=== PATIENT | male | born 1970 | race Caucasian/White ===

== ENCOUNTER 2020-01-05 16:18 | Inpatient (IN) | payer OTHER ==
[~2020-01-05] VITALS: Ht 182.9 cm; Wt 129.6 kg
[2020-01-05] MEDS ORDERED: normal saline 1000ML IV soln IV ONE (17:20)
[2020-01-05] MEDS ORDERED: acetaminophen 325mg tablet PO STA (17:20)
[2020-01-05] MEDS ORDERED: dexamethasone sod phosphate 10mg/ml inj IV STA (18:01)
[2020-01-05] MEDS ORDERED: ketorolac trometh. 30mg/ml inj. IV ONE (18:05)
[2020-01-05 18:12] LABS: BASOPHILS % (AUTO) 0.2 % (0-1); EOSINOPHILS % (AUTO) 0 % (0-6); HEMATOCRIT 41.7 % (42.0-52.0); HEMOGLOBIN 14.6 g/dl (14.0-17.9); LYMPHOCYTES # (AUTO) 0.5 X10'3 (1.1-4.8); LYMPHOCYTES % (AUTO) 8.7 % (21-51); MEAN CORPUSCULAR HEMOGLOBIN 30.9 PG (27.0-31.0); MEAN CORPUSCULAR VOLUME 88.3 FL (78-98); MEAN PLATELET VOLUME 7.4 FL (7.4-10.4); MONOCYTES # (AUTO) 0.2 X10'3 (0-0.9); MONOCYTES % (AUTO) 3.2 % (2-12); NEUTROPHILS # (AUTO) 4.7 X10'3 (1.8-7.7); NEUTROPHILS % (AUTO) 87.9 % (42-75); PLATELET COUNT 193 X10'3 (140-440); RED BLOOD COUNT 4.73 X10'6 (4.70-6.10); RED CELL DISTRIBUTION WIDTH 13.4 % (11.5-14.5); WHITE BLOOD COUNT 5.4 X10'3 (4.5-11.0)
[2020-01-05 18:26] LABS: ALANINE AMINOTRANSFERASE 41 U/L (12-78); ALBUMIN 3.2 G/DL (3.4-5.0); ALBUMIN/GLOBULIN RATIO 0.7 (1.1-1.5); ALKALINE PHOSPHATASE 69 IU/L (46-116); ANION GAP 11 (8-16); ASPARTATE AMINO TRANSFERASE 54 U/L (10-37); BILIRUBIN,TOTAL 0.4 MG/DL (0.1-1.0); BLOOD UREA NITROGEN 17 MG/DL (7-18); BUN/CREATININE RATIO 14.9 (5.4-32.0); CALCIUM 8.5 MG/DL (8.5-10.1); CHLORIDE 90 MMOL/L (99-107); CREATININE 1.14 MG/DL (0.60-1.10); GLUCOSE 114 MG/DL (70-104); POTASSIUM 3.7 MMOL/L (3.5-5.1); SODIUM 128 MMOL/L (135-145); TOTAL CARBON DIOXIDE 27.1 MMOL/L (24-32); eGFR 67 ML/MIN
[2020-01-05 18:50] LABS: CLARITY,URINE SLIGHTLY CLOUDY (Clear); COLOR,URINE YELLOW (Yellow); GLUCOSE, URINE NEGATIVE (Neg); KETONES,URINE NEGATIVE (Neg); LEUKOCYTE ESTERASE ,URINE NEGATIVE (Neg); NITRITES, URINE NEGATIVE (Neg); OCCULT BLOOD,URINE SMALL (Neg); PROTEIN,URINE >=300 mg/dl (Neg); UROBILINOGEN,URINE 0.2 E.U/dL (0.2-1.0)
[2020-01-05 18:52] LABS: UA COLLECTION TYPE CLN CATCH MIDSTREAM
[2020-01-05 18:57] LABS: HYALINE CASTS 0-3 /LPF (NEGATIVE); MUCUS STRANDS FEW /LPF (Neg); SQUAMOUS EPITHELIAL CELL,UR FEW /LPF (FEW)
[2020-01-05 18:58] LABS: BACTERIA,URINE NONE SEEN /HPF (Neg); RBC,URINE 0-2 /HPF (0-2); WBC,URINE 0-4 /HPF (0-4)
[2020-01-05 19:03] LABS: C-REACTIVE PROTEIN 8.98 MG/DL (0.0-0.5); LACTATE DEHYDROGENASE 451 U/L (85-227); MAGNESIUM 1.9 MG/DL (1.5-2.4)
[2020-01-05 19:11] LABS: FERRITIN 9571 NG/ML (26-388)
[2020-01-05 19:13] LABS: D-DIMER 3.09 MG/L FEU (0-0.50)
[2020-01-05] MEDS ORDERED: iohexol 350MG/ML 100ml bottle IV ONE (19:24)
[2020-01-05] MEDS ORDERED: ondansetron/PF 4mg/2ml inj IV PRN (21:35)
[2020-01-05] MEDS ORDERED: potassium Cl 20 mEq SR tablet PO PRN ×2 (21:35)
[2020-01-05] MEDS ORDERED: mag hydrox/Alum hydrox/simeth 30ml oral suspension PO PRN (21:35)
[2020-01-05] MEDS ORDERED: potassium CL 10mEq/100ml bag 100 ML IV PRN ×2 (21:35)
[2020-01-05] MEDS: normal saline 1000ml 1,000 ML IV SCH (21:35)
[2020-01-05] MEDS ORDERED: magnesium hydroxide 30ml (MOM) UD suspension PO PRN (21:35)
[2020-01-05 22:39] VITALS: BP 138/73
[2020-01-05] MEDS ORDERED: LISI-600 PO (22:56)
[2020-01-05] MEDS ORDERED: OMEP40CA13 PO (22:58)
[2020-01-05] MEDS ORDERED: VITA-268 PO (22:59)
[2020-01-05] MEDS ORDERED: OMEG-79 PO (22:59)
--- NOTE | 2020-01-05 23:00 | NUR ---
Dr. Galdamez called Addendum: 01/06/20 at 0255 by Renetta Cintron RN Strike from medical record, incorrect patient.
--- NOTE | 2020-01-05 23:05 | NUR ---
Order to DC FC and previous note entered on incorrect patient. Strike from Record.
[2020-01-05] MEDS ORDERED: MULT-1085 PO (23:08)
[2020-01-05] MEDS ORDERED: ASCO-139 PO (23:08)
[2020-01-06 06:09] LABS: BASOPHILS % (AUTO) 0.1 % (0-1); EOSINOPHILS % (AUTO) 0 % (0-6); HEMATOCRIT 39.4 % (42.0-52.0); HEMOGLOBIN 13.3 g/dl (14.0-17.9); LYMPHOCYTES # (AUTO) 0.3 X10'3 (1.1-4.8); LYMPHOCYTES % (AUTO) 10.5 % (21-51); MEAN CORPUSCULAR HGB CONC 33.9 g/dL (33.0-36.5); MEAN CORPUSCULAR VOLUME 88.4 FL (78-98); MEAN PLATELET VOLUME 7.6 FL (7.4-10.4); MONOCYTES # (AUTO) 0.1 X10'3 (0-0.9); MONOCYTES % (AUTO) 4.5 % (2-12); NEUTROPHILS # (AUTO) 2.8 X10'3 (1.8-7.7); NEUTROPHILS % (AUTO) 84.9 % (42-75); PLATELET COUNT 190 X10'3 (140-440); RED BLOOD COUNT 4.45 X10'6 (4.70-6.10); RED CELL DISTRIBUTION WIDTH 13.5 % (11.5-14.5); WHITE BLOOD COUNT 3.3 X10'3 (4.5-11.0)
--- NOTE | 2020-01-06 06:28 | NUR ---
Problems reprioritized. Patient report given, questions answered & plan of care reviewed with SUYAPA Lindsey.
[2020-01-06 06:30] LABS: ALANINE AMINOTRANSFERASE 39 U/L (12-78); ALBUMIN 2.9 G/DL (3.4-5.0); ALBUMIN/GLOBULIN RATIO 0.6 (1.1-1.5); ALKALINE PHOSPHATASE 61 IU/L (46-116); ANION GAP 10 (8-16); ASPARTATE AMINO TRANSFERASE 50 U/L (10-37); BILIRUBIN,TOTAL 0.3 MG/DL (0.1-1.0); BLOOD UREA NITROGEN 20 MG/DL (7-18); BUN/CREATININE RATIO 20.8 (5.4-32.0); CALCIUM 8.6 MG/DL (8.5-10.1); CHLORIDE 99 MMOL/L (99-107); CREATININE 0.96 MG/DL (0.60-1.10); GLUCOSE 129 MG/DL (70-104); POTASSIUM 4.3 MMOL/L (3.5-5.1); SODIUM 135 MMOL/L (135-145); TOTAL PROTEIN 7.6 G/DL (6.4-8.2); eGFR 82 ML/MIN
[2020-01-06] MEDS: dexamethasone inj 6 MG in normal saline 100ml IV soln 100 ML IV SCH ×2 (07:42→20:12)
[2020-01-06] MEDS: multivitamins, therapeutics tablet PO SCH (07:43)
[2020-01-06] MEDS: ascorbic acid 500mg tablet PO SCH (07:43)
[2020-01-06] MEDS: pantoprazole 40mg Tablet.DR PO SCH (07:43)
[2020-01-06] MEDS: vitamin B comp w/Vit. C tab 1 TAB TABLET PO SCH (07:43)
[2020-01-06] MEDS: enoxaparin 40mg/0.4ml syringe SUBCUT SCH ×2 (07:44→20:13)
[2020-01-06] MEDS: OMEGA-3/DHA/EPA/FISH OIL 1 EACH CAPSULE.DR PO SCH (07:44)
[2020-01-06] MEDS ORDERED: lisinopril 20mg tablet PO SCH (08:00)
[2020-01-06] MEDS: K and/or MAG REPLACEMENT MC SCH ×2 (08:00→20:00)
[2020-01-06 08:10] VITALS: BP 134/85
[2020-01-06] MEDS ORDERED: LISI1TAB32 PO (08:48)
[2020-01-06] MEDS ORDERED: FLU VACC QS2020-21(6MOS UP)/PF 60 MCG/0.5 ML SYRINGE IMVAC ONE (10:00)
[2020-01-06] MEDS: normal saline 1000ml 1,000 ML IV SCH ×3 (12:39→22:04)
[2020-01-06 12:45] VITALS: BP 139/88
--- NOTE | 2020-01-06 15:09 | NUR ---
PAGER ID: [phone] MESSAGE: [phone] Richard Can we get RT and Treat on this patient please, sats are decreasing. Rosalia [id number]
--- NOTE | 2020-01-06 15:10 | NUR ---
Found patient up at sink without oxygen, sat 65%. Assist to bed, nasal canula on with O2 up to 8L. Sat up to 86%. Stayed with patient, instructing him to breath in his nose and out his mouth. Eventually sat at 90% at 4L NC. Call to Dr Salazar, she is coming to see patient.
[2020-01-06 15:15] VITALS: BP 142/73
[2020-01-06 15:20] VITALS: BP 136/78
[2020-01-06] MEDS ORDERED: furosemide 40mg/4ml inj IV ONE (15:40)
[2020-01-06 18:00] VITALS: BP 137/91
--- NOTE | 2020-01-06 18:24 | NUR ---
PAGER ID: [phone] MESSAGE: [phone] COVID patient is now sat 77% currently. Rosalia [id number]
--- NOTE | 2020-01-06 18:37 | NUR ---
Paged Dr Salazar, Called Dr Salazar cell phone-no answer
--- NOTE | 2020-01-06 18:45 | NUR ---
Dr Salazar called, new orders
--- NOTE | 2020-01-06 18:48 | NUR ---
Report to noc RN
--- NOTE | 2020-01-06 21:37 | NUR ---
Patient in room YARIEL 353. I have received report from Azra by telephone from Surgical and had the opportunity to ask questions.
[2020-01-06 22:00] VITALS: BP 148/94
--- NOTE | 2020-01-06 22:51 | NUR ---
Patient in room YARIEL 353. I have received report from Gretel DALE and had the opportunity to ask questions and assume patient care.
--- NOTE | 2020-01-06 22:52 | NUR ---
Problems reprioritized. Patient report given, questions answered & plan of care reviewed with Mary DALE. Patient transfered to PCU. Pt in no apparent distress. All belongings sent with pt.
[2020-01-06] MEDS: HYDROcodone/acetaminophen 5mg/325mg tablet PO PRN (23:21)
[2020-01-07] VITALS (9 sets, daily range): BP systolic 120–164; BP diastolic 71–94
[2020-01-07] MEDS ORDERED: diltiazem 5mg/ml 5ml inj. IV ONE (06:15)
--- NOTE | 2020-01-07 06:15 | NUR ---
Cardiac Rhythm changed to A fib with RVR MD Farr called and got orders for Cardizem 10 mg IV Push for loading dose and to start Cardizem Drip at 5 ml/hr. Was able to administer medications before giving report to AM shift. Will continue to monitor.
[2020-01-07 06:27] LABS: BASOPHILS % (AUTO) 0.1 % (0-1); EOSINOPHILS % (AUTO) 0 % (0-6); HEMATOCRIT 40.6 % (42.0-52.0); HEMOGLOBIN 13.7 g/dl (14.0-17.9); LYMPHOCYTES # (AUTO) 0.4 X10'3 (1.1-4.8); LYMPHOCYTES % (AUTO) 4.4 % (21-51); MEAN CORPUSCULAR HEMOGLOBIN 30.1 PG (27.0-31.0); MEAN CORPUSCULAR HGB CONC 33.8 g/dL (33.0-36.5); MEAN PLATELET VOLUME 7.5 FL (7.4-10.4); MONOCYTES # (AUTO) 0.2 X10'3 (0-0.9); NEUTROPHILS # (AUTO) 7.5 X10'3 (1.8-7.7); NEUTROPHILS % (AUTO) 92.5 % (42-75); PLATELET COUNT 240 X10'3 (140-440); RED BLOOD COUNT 4.56 X10'6 (4.70-6.10); RED CELL DISTRIBUTION WIDTH 13.7 % (11.5-14.5); WHITE BLOOD COUNT 8.1 X10'3 (4.5-11.0)
--- NOTE | 2020-01-07 06:30 | NUR ---
Orientee documentation: I have reviewed and agree with all interventions, assessments performed, and Medications administered documented by Jie DALE.
[2020-01-07] MEDS: diltiazem-D5W 125mg/125ml 125 ML IV SCH (06:34)
[2020-01-07 06:46] LABS: ALANINE AMINOTRANSFERASE 53 U/L (12-78); ALBUMIN 2.8 G/DL (3.4-5.0); ALBUMIN/GLOBULIN RATIO 0.6 (1.1-1.5); ALKALINE PHOSPHATASE 64 IU/L (46-116); ANION GAP 6 (8-16); ASPARTATE AMINO TRANSFERASE 63 U/L (10-37); BILIRUBIN,TOTAL 0.3 MG/DL (0.1-1.0); BLOOD UREA NITROGEN 23 MG/DL (7-18); BUN/CREATININE RATIO 21.7 (5.4-32.0); C-REACTIVE PROTEIN 5.54 MG/DL (0.0-0.5); CALCIUM 9.4 MG/DL (8.5-10.1); CHLORIDE 103 MMOL/L (99-107); CREATININE 1.06 MG/DL (0.60-1.10); POTASSIUM 4.4 MMOL/L (3.5-5.1); SODIUM 138 MMOL/L (135-145); TOTAL CARBON DIOXIDE 29.5 MMOL/L (24-32); TOTAL PROTEIN 7.4 G/DL (6.4-8.2); eGFR 73 ML/MIN
[2020-01-07 06:47] LABS: GLUCOSE 123 MG/DL (70-104)
[2020-01-07 06:49] LABS: D-DIMER 3.05 MG/L FEU (0-0.50)
--- NOTE | 2020-01-07 06:54 | NUR ---
RECEIVED REPORT FROM JOEL DALE, [facility].
--- NOTE | 2020-01-07 06:56 | NUR ---
Problems reprioritized. Patient report given, questions answered & plan of care reviewed with Maryanne DALE.
[2020-01-07] MEDS: dexamethasone inj 6 MG in normal saline 100ml IV soln 100 ML IV SCH ×2 (07:30→20:31)
[2020-01-07] MEDS: vitamin B comp w/Vit. C tab 1 TAB TABLET PO SCH (07:30)
[2020-01-07] MEDS: ascorbic acid 500mg tablet PO SCH (07:30)
[2020-01-07] MEDS: OMEGA-3/DHA/EPA/FISH OIL 1 EACH CAPSULE.DR PO SCH (07:30)
[2020-01-07] MEDS: lisinopril 5mg tablet PO SCH (07:30)
[2020-01-07] MEDS: pantoprazole 40mg Tablet.DR PO SCH (07:30)
[2020-01-07] MEDS: multivitamins, therapeutics tablet PO SCH (07:30)
[2020-01-07] MEDS: enoxaparin 40mg/0.4ml syringe SUBCUT SCH ×2 (07:30→07:58)
--- NOTE | 2020-01-07 07:45 | NUR ---
Placed patient on NRB 15 L at this time, tolerating well, saturation 91-94%. Will cont. to monitor. Patient states will call if he feels SOB. Able to make needs known.
[2020-01-07] MEDS: acetaminophen 325mg tablet PO PRN ×2 (07:50→17:15)
[2020-01-07] MEDS: K and/or MAG REPLACEMENT MC SCH ×2 (07:55→20:00)
[2020-01-07] MEDS ORDERED: HYDROchlorothiazide 12.5mg capsule PO SCH (08:00)
--- NOTE | 2020-01-07 10:21 | NUR ---
Paged hosp, "Maryanne [phone] Edson Ramos send out test results POSITIVE."
[2020-01-07] MEDS ORDERED: REMDESIVIR 100MG inj. 200 MG in normal saline 100ml IV soln 100 ML IV ONE (12:10)
--- NOTE | 2020-01-07 18:00 | NUR ---
Patient in room PCU 3008. I have received report from Maryanne DALE and had the opportunity to ask questions and assume patient care.
--- NOTE | 2020-01-07 18:13 | NUR ---
Gave report to Ekaterina DALE, transferred care.
[2020-01-07] MEDS: enoxaparin 60mg/0.6ml syringe SUBCUT SCH (20:31)
[2020-01-08] VITALS (11 sets, daily range): BP systolic 126–161; BP diastolic 73–106
[2020-01-08] MEDS: LORazepam 2 mg/ml vial IV PRN ×2 (01:41→14:44)
[2020-01-08] MEDS: diltiazem-D5W 125mg/125ml 125 ML IV SCH ×2 (04:42→09:55)
--- NOTE | 2020-01-08 06:13 | NUR ---
Problems reprioritized. Patient report given, questions answered & plan of care reviewed with yKleigh DALE.
--- NOTE | 2020-01-08 06:30 | NUR ---
Patient in room PCU 3008. I have received report from SUYAPA Flores and had the opportunity to ask questions and assume patient care. Patient awake in bed and in no acute distress.
[2020-01-08 07:42] LABS: BASOPHILS % (AUTO) 0.1 % (0-1); EOSINOPHILS % (AUTO) 0 % (0-6); HEMATOCRIT 44.6 % (42.0-52.0); HEMOGLOBIN 14.9 g/dl (14.0-17.9); LYMPHOCYTES # (AUTO) 0.4 X10'3 (1.1-4.8); LYMPHOCYTES % (AUTO) 3.4 % (21-51); MEAN CORPUSCULAR HEMOGLOBIN 29.7 PG (27.0-31.0); MEAN CORPUSCULAR HGB CONC 33.5 g/dL (33.0-36.5); MEAN CORPUSCULAR VOLUME 88.9 FL (78-98); MEAN PLATELET VOLUME 7.4 FL (7.4-10.4); MONOCYTES # (AUTO) 0.3 X10'3 (0-0.9); MONOCYTES % (AUTO) 2.6 % (2-12); NEUTROPHILS # (AUTO) 10.9 X10'3 (1.8-7.7); NEUTROPHILS % (AUTO) 93.9 % (42-75); PLATELET COUNT 320 X10'3 (140-440); RED BLOOD COUNT 5.02 X10'6 (4.70-6.10); WHITE BLOOD COUNT 11.7 X10'3 (4.5-11.0)
[2020-01-08] MEDS: dexamethasone inj 6 MG in normal saline 100ml IV soln 100 ML IV SCH (07:48)
[2020-01-08] MEDS: enoxaparin 60mg/0.6ml syringe SUBCUT SCH (07:49)
[2020-01-08] MEDS: vitamin B comp w/Vit. C tab 1 TAB TABLET PO SCH (07:49)
[2020-01-08] MEDS: OMEGA-3/DHA/EPA/FISH OIL 1 EACH CAPSULE.DR PO SCH (07:49)
[2020-01-08] MEDS: pantoprazole 40mg Tablet.DR PO SCH (07:50)
[2020-01-08] MEDS: ascorbic acid 500mg tablet PO SCH (07:50)
[2020-01-08] MEDS: multivitamins, therapeutics tablet PO SCH (07:50)
[2020-01-08] MEDS: lisinopril 5mg tablet PO SCH (07:51)
[2020-01-08] MEDS: K and/or MAG REPLACEMENT MC SCH ×2 (08:00→20:00)
[2020-01-08 08:02] LABS: D-DIMER 4.53 MG/L FEU (0-0.50)
[2020-01-08 08:04] LABS: ALANINE AMINOTRANSFERASE 49 U/L (12-78); ALBUMIN 2.6 G/DL (3.4-5.0); ALBUMIN/GLOBULIN RATIO 0.5 (1.1-1.5); ALKALINE PHOSPHATASE 98 IU/L (46-116); ANION GAP 9 (8-16); ASPARTATE AMINO TRANSFERASE 55 U/L (10-37); BILIRUBIN,TOTAL 0.6 MG/DL (0.1-1.0); BLOOD UREA NITROGEN 20 MG/DL (7-18); BUN/CREATININE RATIO 21.5 (5.4-32.0); C-REACTIVE PROTEIN 13.07 MG/DL (0.0-0.5); CALCIUM 8.6 MG/DL (8.5-10.1); CHLORIDE 101 MMOL/L (99-107); CREATININE 0.93 MG/DL (0.60-1.10); POTASSIUM 4.3 MMOL/L (3.5-5.1); SODIUM 136 MMOL/L (135-145); TOTAL CARBON DIOXIDE 26.2 MMOL/L (24-32); TOTAL PROTEIN 7.6 G/DL (6.4-8.2); eGFR 85 ML/MIN
[2020-01-08 08:08] LABS: GLUCOSE 117 MG/DL (70-104)
[2020-01-08] MEDS ORDERED: enoxaparin 100mg/ml syringe SUBCUT ONE (09:40)
[2020-01-08] MEDS: REMDESIVIR 100MG inj. 100 MG in normal saline 100ml IV soln 100 ML IV SCH (09:54)
[2020-01-08] MEDS ORDERED: enoxaparin 40mg/0.4ml syringe SQ ONE (10:00)
[2020-01-08] MEDS ORDERED: enoxaparin 30mg/0.3ml syringe SUBCUT ONE (10:00)
--- NOTE | 2020-01-08 11:29 | NUR ---
RT AT PATIENTS BEDSIDE. ATTEMPTED TO PUT PATIENT ON HI FLOW SALTER AT 15L AND A 15L NRB, PATIENTS SPO2 REMAINED IN THE 80'S. PATIENT STATED THAT HIS WOB INCREASED AND FELT MORE COMFORTABLE ON BIPAP. PATIENTS BIPAP PRESSURES WERE INCREASED 15/8 ON 85%. PT RESTING COMFORTABLY ON BIPAP, RT WILL CONTINUE TO MONITOR. Addendum: 01/08/20 at 1136 by Renetta Garcia RT Amended: Links added.
[2020-01-08] MEDS: methylPREDNISolone sod succ 125mg/2ml vial IV SCH (16:16)
--- NOTE | 2020-01-08 18:09 | NUR ---
Problems reprioritized. Patient report given, questions answered & plan of care reviewed with SUYAPA Carmona. Patient stable at transfer of care. Patient stable at transfer of care.
--- NOTE | 2020-01-08 18:29 | NUR ---
Problems reprioritized. Patient report given, questions answered & plan of care reviewed with SUYAPA Flores. Patient stable at transfer of care.
[2020-01-08] MEDS: enoxaparin 100mg/ml syringe SUBCUT SCH (20:00)
[2020-01-08] MEDS ORDERED: enoxaparin 60mg/0.6ml syringe SUBCUT SCH (20:00)
[2020-01-08] MEDS: enoxaparin 30mg/0.3ml syringe SUBCUT SCH (20:00)
--- NOTE | 2020-01-08 22:23 | NUR ---
Patient in room PCU 3008. I have received report from Kyleigh DALE and had the opportunity to ask questions and assume patient care.
[2020-01-09] VITALS (11 sets, daily range): BP systolic 120–176; BP diastolic 71–102
[2020-01-09] MEDS: methylPREDNISolone sod succ 125mg/2ml vial IV SCH ×4 (00:42→23:45)
[2020-01-09 05:28] LABS: ALANINE AMINOTRANSFERASE 42 U/L (12-78); ALBUMIN 2.3 G/DL (3.4-5.0); ALBUMIN/GLOBULIN RATIO 0.5 (1.1-1.5); ALKALINE PHOSPHATASE 102 IU/L (46-116); ANION GAP 8 (8-16); ASPARTATE AMINO TRANSFERASE 39 U/L (10-37); BILIRUBIN,TOTAL 0.4 MG/DL (0.1-1.0); BLOOD UREA NITROGEN 25 MG/DL (7-18); C-REACTIVE PROTEIN 9.71 MG/DL (0.0-0.5); CALCIUM 8.5 MG/DL (8.5-10.1); CHLORIDE 102 MMOL/L (99-107); CREATININE 0.96 MG/DL (0.60-1.10); GLUCOSE 142 MG/DL (70-104); POTASSIUM 4.8 MMOL/L (3.5-5.1); SODIUM 137 MMOL/L (135-145); TOTAL PROTEIN 7.1 G/DL (6.4-8.2); eGFR 82 ML/MIN
--- NOTE | 2020-01-09 06:07 | NUR ---
Problems reprioritized. Patient report given, questions answered & plan of care reviewed with Kyleigh DALE.
[2020-01-09 07:00] LABS: BASOPHILS % (AUTO) 0.4 % (0-1); EOSINOPHILS % (AUTO) 0 % (0-6); HEMATOCRIT 42.8 % (42.0-52.0); HEMOGLOBIN 14.6 g/dl (14.0-17.9); LYMPHOCYTES # (AUTO) 0.4 X10'3 (1.1-4.8); LYMPHOCYTES % (AUTO) 4.7 % (21-51); MEAN CORPUSCULAR HEMOGLOBIN 30.4 PG (27.0-31.0); MEAN CORPUSCULAR HGB CONC 34.2 g/dL (33.0-36.5); MEAN PLATELET VOLUME 7.1 FL (7.4-10.4); MONOCYTES # (AUTO) 0.3 X10'3 (0-0.9); MONOCYTES % (AUTO) 3.4 % (2-12); NEUTROPHILS # (AUTO) 7.7 X10'3 (1.8-7.7); NEUTROPHILS % (AUTO) 91.5 % (42-75); PLATELET COUNT 322 X10'3 (140-440); RED BLOOD COUNT 4.81 X10'6 (4.70-6.10); RED CELL DISTRIBUTION WIDTH 13.9 % (11.5-14.5); WHITE BLOOD COUNT 8.4 X10'3 (4.5-11.0)
[2020-01-09] MEDS: enoxaparin 30mg/0.3ml syringe SUBCUT SCH ×2 (07:55→19:29)
[2020-01-09] MEDS: enoxaparin 100mg/ml syringe SUBCUT SCH ×2 (07:55→19:28)
[2020-01-09] MEDS: multivitamins, therapeutics tablet PO SCH (07:56)
[2020-01-09] MEDS: OMEGA-3/DHA/EPA/FISH OIL 1 EACH CAPSULE.DR PO SCH (07:56)
[2020-01-09] MEDS: ascorbic acid 500mg tablet PO SCH (07:56)
[2020-01-09] MEDS: lisinopril 5mg tablet PO SCH (07:57)
[2020-01-09] MEDS: pantoprazole 40mg Tablet.DR PO SCH (07:57)
[2020-01-09] MEDS: K and/or MAG REPLACEMENT MC SCH ×2 (07:57→20:00)
[2020-01-09] MEDS: vitamin B comp w/Vit. C tab 1 TAB TABLET PO SCH (07:57)
[2020-01-09] MEDS: diltiazem-D5W 125mg/125ml 125 ML IV SCH (09:45)
[2020-01-09] MEDS: REMDESIVIR 100MG inj. 100 MG in normal saline 100ml IV soln 100 ML IV SCH (09:45)
[2020-01-09] MEDS ORDERED: OMEP-50 PO (10:17)
[2020-01-09] MEDS: LORazepam 2 mg/ml vial IV PRN (11:37)
--- NOTE | 2020-01-09 11:58 | NUR ---
Patient was feeling a little anxious so ativan was given. Patient's bipap's FiO2 now down to 75%.
--- NOTE | 2020-01-09 16:39 | NUR ---
Stopped patient's cardizem gtt per Dr. Kelly order. Patient will be starting PO cardizem tonight.
--- NOTE | 2020-01-09 16:56 | NUR ---
Patient's fiance brought in hearing aid batteries for patient. Now with patient's other belongings.
--- NOTE | 2020-01-09 18:13 | NUR ---
Problems reprioritized. Patient report given, questions answered & plan of care reviewed with SUYAPA Carmona. Patient stable at transfer of care.
--- NOTE | 2020-01-09 18:15 | NUR ---
Patient in room PCU 3008. I have received report from Kylegih DALE and had the opportunity to ask questions and assume patient care.
[2020-01-09] MEDS: diltiazem 30mg tablet PO SCH (19:29)
--- NOTE | 2020-01-09 21:00 | NUR ---
pt's current BP elevated to 176/102. 60mg cardizem PO was given @ 193. aware and gave new order of 60mg cardizem PO ONCE now. medication given and will reevaluate patient @ 2199.
[2020-01-09] MEDS ORDERED: diltiazem 30mg tablet PO ONE (21:15)
[2020-01-10] VITALS (10 sets, daily range): BP systolic 0–146; BP diastolic 56–101
[2020-01-10] MEDS: diltiazem 30mg tablet PO SCH ×4 (02:03→20:50)
[2020-01-10] MEDS: LORazepam 2 mg/ml vial IV PRN ×2 (02:29→20:59)
[2020-01-10 05:35] LABS: BASOPHILS % (AUTO) 0.1 % (0-1); EOSINOPHILS % (AUTO) 0 % (0-6); HEMATOCRIT 42.2 % (42.0-52.0); HEMOGLOBIN 14.2 g/dl (14.0-17.9); LYMPHOCYTES # (AUTO) 0.5 X10'3 (1.1-4.8); LYMPHOCYTES % (AUTO) 4.3 % (21-51); MEAN CORPUSCULAR HEMOGLOBIN 29.7 PG (27.0-31.0); MEAN CORPUSCULAR HGB CONC 33.7 g/dL (33.0-36.5); MEAN CORPUSCULAR VOLUME 88.4 FL (78-98); MEAN PLATELET VOLUME 7.4 FL (7.4-10.4); MONOCYTES # (AUTO) 0.5 X10'3 (0-0.9); MONOCYTES % (AUTO) 4.8 % (2-12); NEUTROPHILS # (AUTO) 9.6 X10'3 (1.8-7.7); NEUTROPHILS % (AUTO) 90.8 % (42-75); PLATELET COUNT 357 X10'3 (140-440); RED BLOOD COUNT 4.78 X10'6 (4.70-6.10); WHITE BLOOD COUNT 10.6 X10'3 (4.5-11.0)
[2020-01-10 05:41] LABS: D-DIMER 2.75 MG/L FEU (0-0.50)
[2020-01-10 05:49] LABS: ALANINE AMINOTRANSFERASE 40 U/L (12-78); ALBUMIN 2.2 G/DL (3.4-5.0); ALBUMIN/GLOBULIN RATIO 0.5 (1.1-1.5); ANION GAP 9 (8-16); ASPARTATE AMINO TRANSFERASE 26 U/L (10-37); BILIRUBIN,TOTAL 0.5 MG/DL (0.1-1.0); BLOOD UREA NITROGEN 26 MG/DL (7-18); BUN/CREATININE RATIO 26.5 (5.4-32.0); C-REACTIVE PROTEIN 3.23 MG/DL (0.0-0.5); CALCIUM 8.3 MG/DL (8.5-10.1); CHLORIDE 103 MMOL/L (99-107); CREATININE 0.98 MG/DL (0.60-1.10); POTASSIUM 4.4 MMOL/L (3.5-5.1); SODIUM 137 MMOL/L (135-145); TOTAL CARBON DIOXIDE 25.5 MMOL/L (24-32); TOTAL PROTEIN 6.6 G/DL (6.4-8.2); eGFR 80 ML/MIN
[2020-01-10 05:50] LABS: ALKALINE PHOSPHATASE 101 IU/L (46-116); GLUCOSE 136 MG/DL (70-104)
--- NOTE | 2020-01-10 06:30 | NUR ---
Patient in room PCU 3008. I have received report from Mathew DALE and had the opportunity to ask questions and assume patient care.
--- NOTE | 2020-01-10 06:31 | NUR ---
Problems reprioritized. Patient report given, questions answered & plan of care reviewed with Joel RN.
--- NOTE | 2020-01-10 07:38 | NUR ---
Have called down to respiratory four time in the last 45 min with no answer
--- NOTE | 2020-01-10 07:43 | NUR ---
Attempted to get a hold of respiratory department once again without success, still need a PAPR to take care of patient at this time. Will continue to call between medication passes with other patients.
[2020-01-10] MEDS: K and/or MAG REPLACEMENT MC SCH ×2 (08:00→20:00)
[2020-01-10] MEDS: OMEGA-3/DHA/EPA/FISH OIL 1 EACH CAPSULE.DR PO SCH (08:00)
[2020-01-10] MEDS: pantoprazole 40mg Tablet.DR PO SCH (08:00)
[2020-01-10] MEDS: multivitamins, therapeutics tablet PO SCH (08:00)
[2020-01-10] MEDS: ascorbic acid 500mg tablet PO SCH (08:00)
[2020-01-10] MEDS: vitamin B comp w/Vit. C tab 1 TAB TABLET PO SCH (08:00)
[2020-01-10] MEDS: lisinopril 5mg tablet PO SCH (08:00)
[2020-01-10] MEDS: enoxaparin 100mg/ml syringe SUBCUT SCH ×2 (08:00→20:51)
[2020-01-10] MEDS: enoxaparin 30mg/0.3ml syringe SUBCUT SCH ×2 (08:00→20:52)
[2020-01-10] MEDS: methylPREDNISolone sod succ 125mg/2ml vial IV SCH ×2 (08:00→15:08)
[2020-01-10] MEDS: REMDESIVIR 100MG inj. 100 MG in normal saline 100ml IV soln 100 ML IV SCH (08:00)
--- NOTE | 2020-01-10 12:14 | NUR ---
Initial: Pt presented with c/o fever, cough, headache, SOB, and diarrhea x 6 days and admit with acute respiratory failure with hypoxemia, COVID-19, and hyponatremia (now resolved). Pt on a regular diet initially with 75-100% PO intake down to 0-25% with refusals. PO intake appears to be improving with steady 50% PO intake as of 01/08 up to 100% at breakfast this morning. Breathing is improving per MD notes, likely contributing to increasing PO intake. [facility] 01/09. No nutrition intervention implemented at this time. Will continue to follow closely and monitor need for nutrition intervention pending further trends in PO intake. Recommendations: 1) Continue regular diet 2) Monitor need for ONS/additional protein 3) Bowel care per rx 4) Scaled weights per rx Addendum: 01/10/20 at [address] Amended: Links added.
[2020-01-10] MEDS ORDERED: dextrose 5%-water 1,000 ML IV SCH (15:45)
--- NOTE | 2020-01-10 18:40 | NUR ---
Problems reprioritized. Patient report given, questions answered & plan of care reviewed with Mery DALE.
--- NOTE | 2020-01-10 18:51 | NUR ---
Patient in room PCU 3008. I have received report from Joel DALE and had the opportunity to ask questions and assume patient care.
--- NOTE | 2020-01-10 21:43 | NUR ---
When cardizem and lovenox given earlier, the nurse forgot to scan the medication before entering the isolation room (for covid) with it.
--- NOTE | 2020-01-10 22:05 | NUR ---
Pt's significant other Rosanna called to check in on how patient is doing. All questions answered.
[2020-01-11] MEDS: methylPREDNISolone sod succ 125mg/2ml vial IV SCH ×3 (00:12→16:53)
[2020-01-11] MEDS: LORazepam 2 mg/ml vial IV PRN (01:19)
[2020-01-11] MEDS: diltiazem 30mg tablet PO SCH ×4 (02:41→20:54)
[2020-01-11 02:46] VITALS: BP 127/67
[2020-01-11 05:45] LABS: D-DIMER 2.31 MG/L FEU (0-0.50)
[2020-01-11 06:00] VITALS: BP 136/78
--- NOTE | 2020-01-11 06:20 | NUR ---
Patient in room PCU 3008. I have received report from pooja orr and had the opportunity to ask questions and assume patient care.
--- NOTE | 2020-01-11 06:30 | NUR ---
Problems reprioritized. Patient report given, questions answered & plan of care reviewed with Lyla DALE.
[2020-01-11] MEDS: K and/or MAG REPLACEMENT MC SCH ×2 (08:00→20:00)
[2020-01-11] MEDS: REMDESIVIR 100MG inj. 100 MG in normal saline 100ml IV soln 100 ML IV SCH (08:57)
[2020-01-11] MEDS: enoxaparin 30mg/0.3ml syringe SUBCUT SCH ×2 (09:09→20:53)
[2020-01-11] MEDS: enoxaparin 100mg/ml syringe SUBCUT SCH ×2 (09:09→20:52)
[2020-01-11] MEDS: pantoprazole 40mg Tablet.DR PO SCH (09:10)
[2020-01-11] MEDS: vitamin B comp w/Vit. C tab 1 TAB TABLET PO SCH (09:10)
[2020-01-11] MEDS: multivitamins, therapeutics tablet PO SCH (09:10)
[2020-01-11] MEDS: OMEGA-3/DHA/EPA/FISH OIL 1 EACH CAPSULE.DR PO SCH (09:10)
[2020-01-11] MEDS: ascorbic acid 500mg tablet PO SCH (09:11)
[2020-01-11] MEDS: lisinopril 5mg tablet PO SCH (09:11)
[2020-01-11 11:00] VITALS: BP 133/68
--- NOTE | 2020-01-11 13:00 | NUR ---
dr. lucia notified of heart rate 130-140s while eating lunch on high flow [id number],orders taken to increase cardizem po
[2020-01-11] MEDS: LORazepam 0.5 MG tablet PO PRN ×2 (13:58→20:54)
--- NOTE | 2020-01-11 18:46 | NUR ---
Patient in room PCU 3008. I have received report from Lyla DALE and had the opportunity to ask questions and assume patient care.
--- NOTE | 2020-01-11 18:49 | NUR ---
Problems reprioritized. Patient report given, questions answered & plan of care reviewed with pooja ruff.
[2020-01-11 22:00] VITALS: BP 121/72
[2020-01-12] VITALS (8 sets, daily range): BP systolic 115–148; BP diastolic 47–86
[2020-01-12] MEDS: LORazepam 0.5 MG tablet PO PRN ×4 (01:16→20:50)
[2020-01-12] MEDS: methylPREDNISolone sod succ 125mg/2ml vial IV SCH ×3 (01:16→19:35)
[2020-01-12] MEDS: diltiazem 30mg tablet PO SCH ×4 (01:16→19:35)
--- NOTE | 2020-01-12 06:33 | NUR ---
Patient in room PCU 3008. I have received report from SUYAPA Bryson and had the opportunity to ask questions and assume patient care.
--- NOTE | 2020-01-12 06:35 | NUR ---
Problems reprioritized. Patient report given, questions answered & plan of care reviewed with Laurita DALE. Patient stable at transfer of care
[2020-01-12 06:49] LABS: D-DIMER 2.32 MG/L FEU (0-0.50)
[2020-01-12 07:28] LABS: BASOPHILS % (AUTO) 0.1 % (0-1); EOSINOPHILS % (AUTO) 0 % (0-6); LYMPHOCYTES # (AUTO) 0.3 X10'3 (1.1-4.8); LYMPHOCYTES % (AUTO) 3.5 % (21-51); MEAN CORPUSCULAR HEMOGLOBIN 30.1 PG (27.0-31.0); MEAN CORPUSCULAR HGB CONC 34.2 g/dL (33.0-36.5); MEAN CORPUSCULAR VOLUME 87.9 FL (78-98); MEAN PLATELET VOLUME 7.6 FL (7.4-10.4); MONOCYTES # (AUTO) 0.3 X10'3 (0-0.9); MONOCYTES % (AUTO) 3.7 % (2-12); NEUTROPHILS # (AUTO) 8.6 X10'3 (1.8-7.7); NEUTROPHILS % (AUTO) 92.7 % (42-75); PLATELET COUNT 375 X10'3 (140-440); RED BLOOD COUNT 4.67 X10'6 (4.70-6.10); RED CELL DISTRIBUTION WIDTH 13.4 % (11.5-14.5); WHITE BLOOD COUNT 9.2 X10'3 (4.5-11.0)
[2020-01-12 07:47] LABS: ALBUMIN 2.2 G/DL (3.4-5.0); ANION GAP 8 (8-16); BLOOD UREA NITROGEN 23 MG/DL (7-18); BUN/CREATININE RATIO 23.5 (5.4-32.0); CALCIUM 8.1 MG/DL (8.5-10.1); CHLORIDE 103 MMOL/L (99-107); CREATININE 0.98 MG/DL (0.60-1.10); POTASSIUM 4.3 MMOL/L (3.5-5.1); SODIUM 137 MMOL/L (135-145); TOTAL CARBON DIOXIDE 26.4 MMOL/L (24-32); eGFR 80 ML/MIN
[2020-01-12 07:48] LABS: GLUCOSE 128 MG/DL (70-104)
[2020-01-12] MEDS: K and/or MAG REPLACEMENT MC SCH ×2 (08:00→20:00)
[2020-01-12] MEDS: REMDESIVIR 100MG inj. 100 MG in normal saline 100ml IV soln 100 ML IV SCH (08:11)
[2020-01-12] MEDS: enoxaparin 100mg/ml syringe SUBCUT SCH ×2 (08:13→19:36)
[2020-01-12] MEDS: enoxaparin 30mg/0.3ml syringe SUBCUT SCH ×2 (08:13→19:37)
[2020-01-12] MEDS: multivitamins, therapeutics tablet PO SCH (08:13)
[2020-01-12] MEDS: ascorbic acid 500mg tablet PO SCH (08:14)
[2020-01-12] MEDS: OMEGA-3/DHA/EPA/FISH OIL 1 EACH CAPSULE.DR PO SCH (08:14)
[2020-01-12] MEDS: pantoprazole 40mg Tablet.DR PO SCH (08:14)
[2020-01-12] MEDS: lisinopril 5mg tablet PO SCH (08:14)
[2020-01-12] MEDS: vitamin B comp w/Vit. C tab 1 TAB TABLET PO SCH (08:14)
--- NOTE | 2020-01-12 18:38 | NUR ---
Patient in room PCU 3008. I have received report from Laurita DALE and had the opportunity to ask questions and assume patient care.
[2020-01-13] VITALS (9 sets, daily range): BP systolic 101–139; BP diastolic 59–89
[2020-01-13] MEDS: LORazepam 0.5 MG tablet PO PRN ×3 (02:08→21:41)
[2020-01-13] MEDS: diltiazem 30mg tablet PO SCH ×4 (02:08→20:30)
--- NOTE | 2020-01-13 02:25 | NUR ---
BP from 2300 to 0200 had incorrect readings dt positional issues with the cuff. 0200 BP reading on mob 63 was 170/122. rechecked after fixing the BP cuff to correct position and resulted 130/86. pt SBP trend has been 110s-140s.
--- NOTE | 2020-01-13 06:21 | NUR ---
Problems reprioritized. Patient report given, questions answered & plan of care reviewed with Willow DALE.
[2020-01-13 06:23] LABS: BASOPHILS % (AUTO) 0.1 % (0-1); EOSINOPHILS % (AUTO) 0 % (0-6); HEMATOCRIT 40.5 % (42.0-52.0); HEMOGLOBIN 13.8 g/dl (14.0-17.9); LYMPHOCYTES # (AUTO) 0.3 X10'3 (1.1-4.8); LYMPHOCYTES % (AUTO) 3.3 % (21-51); MEAN CORPUSCULAR HEMOGLOBIN 29.9 PG (27.0-31.0); MEAN CORPUSCULAR VOLUME 87.8 FL (78-98); MEAN PLATELET VOLUME 7.3 FL (7.4-10.4); MONOCYTES # (AUTO) 0.3 X10'3 (0-0.9); MONOCYTES % (AUTO) 2.9 % (2-12); NEUTROPHILS # (AUTO) 9.3 X10'3 (1.8-7.7); NEUTROPHILS % (AUTO) 93.7 % (42-75); PLATELET COUNT 354 X10'3 (140-440); RED BLOOD COUNT 4.62 X10'6 (4.70-6.10); RED CELL DISTRIBUTION WIDTH 13.6 % (11.5-14.5); WHITE BLOOD COUNT 9.9 X10'3 (4.5-11.0)
--- NOTE | 2020-01-13 06:28 | NUR ---
Patient in room PCU 3008. I have received report from Mathew DALE and had the opportunity to ask questions and assume patient care.
[2020-01-13 06:34] LABS: D-DIMER 2.21 MG/L FEU (0-0.50)
[2020-01-13 06:39] LABS: ALANINE AMINOTRANSFERASE 52 U/L (12-78); ALBUMIN 2.1 G/DL (3.4-5.0); ALBUMIN/GLOBULIN RATIO 0.5 (1.1-1.5); ALKALINE PHOSPHATASE 99 IU/L (46-116); ANION GAP 8 (8-16); ASPARTATE AMINO TRANSFERASE 21 U/L (10-37); BILIRUBIN,TOTAL 0.5 MG/DL (0.1-1.0); BLOOD UREA NITROGEN 23 MG/DL (7-18); BUN/CREATININE RATIO 23.2 (5.4-32.0); C-REACTIVE PROTEIN 0.39 MG/DL (0.0-0.5); CALCIUM 8.3 MG/DL (8.5-10.1); CHLORIDE 101 MMOL/L (99-107); CREATININE 0.99 MG/DL (0.60-1.10); POTASSIUM 4.2 MMOL/L (3.5-5.1); SODIUM 138 MMOL/L (135-145); TOTAL CARBON DIOXIDE 29.4 MMOL/L (24-32); eGFR 79 ML/MIN
[2020-01-13 06:41] LABS: GLUCOSE 131 MG/DL (70-104)
--- NOTE | 2020-01-13 07:00 | NUR ---
Assumed care of patient, patient is doing well this morning, reports feeling a little better than yesterday. Labs are trending in the right direction. Sp02 94% on Bipap on 80% fio2. Will continue to monitor.
[2020-01-13] MEDS: multivitamins, therapeutics tablet PO SCH (07:13)
[2020-01-13] MEDS: OMEGA-3/DHA/EPA/FISH OIL 1 EACH CAPSULE.DR PO SCH (07:14)
[2020-01-13] MEDS: ascorbic acid 500mg tablet PO SCH (07:14)
[2020-01-13] MEDS: lisinopril 5mg tablet PO SCH (07:14)
[2020-01-13] MEDS: pantoprazole 40mg Tablet.DR PO SCH (07:14)
[2020-01-13] MEDS: methylPREDNISolone sod succ 125mg/2ml vial IV SCH ×2 (07:15→20:30)
[2020-01-13] MEDS: enoxaparin 100mg/ml syringe SUBCUT SCH ×2 (07:16→20:30)
[2020-01-13] MEDS: enoxaparin 30mg/0.3ml syringe SUBCUT SCH ×2 (07:17→20:30)
[2020-01-13] MEDS: vitamin B comp w/Vit. C tab 1 TAB TABLET PO SCH (07:20)
[2020-01-13] MEDS: K and/or MAG REPLACEMENT MC SCH ×2 (08:00→20:00)
--- NOTE | 2020-01-13 09:44 | NUR ---
Patient ate breakfast, 02 sats drop removing non rebreather. Pt. requires 15L high flow with non rebreather in between bites of foods. Patient is getting up to BSC. Encouraged deep breathing and coughing as well as incentive spirometry.
--- NOTE | 2020-01-13 09:45 | NUR ---
Active listening and 1:1 consoling provided as the patient was tearful. Pt. states he feels a little helpless and said he has been here 9 days now. Patient was encouraged to communicate with family via facetime. Cards, books and or magazine offered but he declined. Pt. did request hot tea and that was provided. Encouragement provided. Pt. thanked nursing for time spent with him at bedside.
--- NOTE | 2020-01-13 12:06 | NUR ---
Reassessment: Eating well, 75-100% PO intake regular diet. Meeting needs. Large BM 01/11. No nutrition intervention needed at this time. Recommendations: 1) Continue regular diet 2) Bowel care per rx 3) Scaled weights per rx Addendum: 01/13/20 at [address] Amended: Links added.
--- NOTE | 2020-01-13 17:44 | NUR ---
Patient is talking on the phone with his , in good spirits. Pt. offers no complaints at this time.
--- NOTE | 2020-01-13 18:10 | NUR ---
Patient in room PCU 3008. I have received report from SUYAPA Daugherty and had the opportunity to ask questions and assume patient care.
--- NOTE | 2020-01-13 18:30 | NUR ---
Problems reprioritized. Patient report given, questions answered & plan of care reviewed with Jeannette Salgado RN. Pt. is eating, in no apparent distress.
[2020-01-14] MEDS: diltiazem 30mg tablet PO SCH ×4 (01:43→20:50)
[2020-01-14] MEDS: LORazepam 0.5 MG tablet PO PRN ×3 (01:44→20:50)
[2020-01-14 02:21] VITALS: BP 115/73
[2020-01-14 03:06] LABS: BASOPHILS # (AUTO) 0.1 X10'3 (0-0.2); BASOPHILS % (AUTO) 0.7 % (0-1); EOSINOPHILS % (AUTO) 0 % (0-6); HEMATOCRIT 41.5 % (42.0-52.0); HEMOGLOBIN 14.2 g/dl (14.0-17.9); LYMPHOCYTES # (AUTO) 0.3 X10'3 (1.1-4.8); LYMPHOCYTES % (AUTO) 2.3 % (21-51); MEAN CORPUSCULAR HEMOGLOBIN 30.2 PG (27.0-31.0); MEAN CORPUSCULAR HGB CONC 34.1 g/dL (33.0-36.5); MEAN CORPUSCULAR VOLUME 88.3 FL (78-98); MEAN PLATELET VOLUME 7.6 FL (7.4-10.4); MONOCYTES # (AUTO) 0.1 X10'3 (0-0.9); MONOCYTES % (AUTO) 0.7 % (2-12); NEUTROPHILS # (AUTO) 12.4 X10'3 (1.8-7.7); NEUTROPHILS % (AUTO) 96.3 % (42-75); PLATELET COUNT 342 X10'3 (140-440); RED CELL DISTRIBUTION WIDTH 13.3 % (11.5-14.5); WHITE BLOOD COUNT 12.9 X10'3 (4.5-11.0)
[2020-01-14 03:18] LABS: D-DIMER 2.06 MG/L FEU (0-0.50)
--- NOTE | 2020-01-14 06:24 | NUR ---
Problems reprioritized. Patient report given, questions answered & plan of care reviewed with SUYAPA Arizmendi.
--- NOTE | 2020-01-14 06:31 | NUR ---
Patient in room PCU 3008. I have received report from SUYAPA Machado and had the opportunity to ask questions and assume patient care. Patient asleep in bed and in no acute distress.
[2020-01-14 08:00] VITALS: BP 110/69
[2020-01-14] MEDS: K and/or MAG REPLACEMENT MC SCH ×2 (08:00→20:00)
[2020-01-14] MEDS: vitamin B comp w/Vit. C tab 1 TAB TABLET PO SCH (08:21)
[2020-01-14] MEDS: lisinopril 5mg tablet PO SCH (08:21)
[2020-01-14] MEDS: pantoprazole 40mg Tablet.DR PO SCH (08:21)
[2020-01-14] MEDS: multivitamins, therapeutics tablet PO SCH (08:22)
[2020-01-14] MEDS: OMEGA-3/DHA/EPA/FISH OIL 1 EACH CAPSULE.DR PO SCH (08:22)
[2020-01-14] MEDS: ascorbic acid 500mg tablet PO SCH (08:23)
[2020-01-14] MEDS: enoxaparin 30mg/0.3ml syringe SUBCUT SCH ×2 (08:24→20:51)
[2020-01-14] MEDS: methylPREDNISolone sod succ 125mg/2ml vial IV SCH ×2 (08:24→20:50)
[2020-01-14] MEDS: enoxaparin 100mg/ml syringe SUBCUT SCH ×2 (08:25→20:52)
[2020-01-14 12:00] VITALS: BP 106/87
[2020-01-14 18:00] VITALS: BP 109/65
--- NOTE | 2020-01-14 18:25 | NUR ---
Problems reprioritized. Patient report given, questions answered & plan of care reviewed with SUYAPA Hinton. Patient stable at transfer of care.
--- NOTE | 2020-01-14 18:31 | NUR ---
Patient in room PCU 3008. I have received report from SUYAPA Arizmendi and had the opportunity to ask questions and assume patient care. Safety measures in place, bed in low and locked position. Call light and personal items within reach. Will continue to monitor throughout shift.
[2020-01-14 22:00] VITALS: BP 131/60
[2020-01-15] VITALS (7 sets, daily range): BP systolic 104–133; BP diastolic 59–84
[2020-01-15] MEDS: diltiazem 30mg tablet PO SCH ×4 (02:50→19:33)
--- NOTE | 2020-01-15 05:04 | NUR ---
Patient in room U 3008. I have received report from SUYAPA Dey and had the opportunity to ask questions and assume patient care. Patient resting in bed, no signs of distress. Safety measures in place, bed in low and locked position. Call light and personal items within reach. Will continue to monitor.
[2020-01-15 06:02] LABS: BASOPHILS % (AUTO) 0.1 % (0-1); EOSINOPHILS % (AUTO) 0 % (0-6); HEMATOCRIT 42.7 % (42.0-52.0); HEMOGLOBIN 14.2 g/dl (14.0-17.9); LYMPHOCYTES # (AUTO) 0.3 X10'3 (1.1-4.8); LYMPHOCYTES % (AUTO) 2.5 % (21-51); MEAN CORPUSCULAR HEMOGLOBIN 29.3 PG (27.0-31.0); MEAN CORPUSCULAR HGB CONC 33.3 g/dL (33.0-36.5); MEAN PLATELET VOLUME 7.4 FL (7.4-10.4); MONOCYTES # (AUTO) 0.2 X10'3 (0-0.9); NEUTROPHILS % (AUTO) 95.4 % (42-75); PLATELET COUNT 350 X10'3 (140-440); RED BLOOD COUNT 4.85 X10'6 (4.70-6.10); RED CELL DISTRIBUTION WIDTH 13.8 % (11.5-14.5); WHITE BLOOD COUNT 11.6 X10'3 (4.5-11.0)
[2020-01-15 06:18] LABS: D-DIMER 2.33 MG/L FEU (0-0.50)
--- NOTE | 2020-01-15 06:33 | NUR ---
Problems reprioritized. Patient report given, questions answered & plan of care reviewed with SUYAPA Oshea. Patient resting comfortably in bed, no signs of distress. Medications administered as ordered, care plan followed. Safety measures in place, bed in low and locked position. Call light and personal items within reach. Will continue to monitor for remainder of shift.
--- NOTE | 2020-01-15 06:44 | NUR ---
Patient in room PCU 3008. I have received report from Cooper DALE and had the opportunity to ask questions and assume patient care.
--- NOTE | 2020-01-15 07:28 | NUR ---
Problems reprioritized. Patient report given, questions answered & plan of care reviewed with Patricia DALE.
[2020-01-15] MEDS: pantoprazole 40mg Tablet.DR PO SCH (07:59)
[2020-01-15] MEDS: vitamin B comp w/Vit. C tab 1 TAB TABLET PO SCH (07:59)
[2020-01-15] MEDS: K and/or MAG REPLACEMENT MC SCH ×2 (08:00→20:00)
[2020-01-15] MEDS: lisinopril 5mg tablet PO SCH (08:01)
[2020-01-15] MEDS: ascorbic acid 500mg tablet PO SCH (08:02)
[2020-01-15] MEDS: OMEGA-3/DHA/EPA/FISH OIL 1 EACH CAPSULE.DR PO SCH (08:03)
[2020-01-15] MEDS: multivitamins, therapeutics tablet PO SCH (08:03)
[2020-01-15] MEDS: enoxaparin 30mg/0.3ml syringe SUBCUT SCH ×2 (08:04→19:34)
[2020-01-15] MEDS: enoxaparin 100mg/ml syringe SUBCUT SCH ×2 (08:05→19:34)
[2020-01-15] MEDS: methylPREDNISolone sod succ 125mg/2ml vial IV SCH (08:06)
--- NOTE | 2020-01-15 11:51 | NUR ---
Patient in room PCU 3008. I have received report from Dorie and had the opportunity to ask questions and assume patient care.
--- NOTE | 2020-01-15 12:00 | NUR ---
Patient in room PCU 3008. I have received report from Patricia DALE and had the opportunity to ask questions and assume patient care.
[2020-01-15] MEDS: LORazepam 0.5 MG tablet PO PRN ×2 (14:07→19:37)
--- NOTE | 2020-01-15 14:08 | NUR ---
Problems reprioritized. Patient report given, questions answered & plan of care reviewed with
--- NOTE | 2020-01-15 18:20 | NUR ---
Problems reprioritized. Patient report given, questions answered & plan of care reviewed with Shanika DALE.
--- NOTE | 2020-01-15 18:31 | NUR ---
Patient in room ORTHO 4018. I have received report from Delia DALE and had the opportunity to ask questions and assume patient care.
[2020-01-15] MEDS: methylPREDNISolone sod succ/PF 40mg inj. IV SCH (19:32)
[2020-01-16] MEDS: diltiazem 30mg tablet PO SCH ×4 (02:20→21:03)
[2020-01-16 06:00] VITALS: BP 145/95
--- NOTE | 2020-01-16 06:42 | NUR ---
Problems reprioritized. Patient report given, questions answered & plan of care reviewed with Sravani DALE.
[2020-01-16 06:50] LABS: BASOPHILS % (AUTO) 0 % (0-1); EOSINOPHILS % (AUTO) 0 % (0-6); HEMATOCRIT 40.9 % (42.0-52.0); LYMPHOCYTES # (AUTO) 0.5 X10'3 (1.1-4.8); LYMPHOCYTES % (AUTO) 4.2 % (21-51); MEAN CORPUSCULAR HEMOGLOBIN 30.3 PG (27.0-31.0); MEAN CORPUSCULAR HGB CONC 34.1 g/dL (33.0-36.5); MEAN CORPUSCULAR VOLUME 88.6 FL (78-98); MEAN PLATELET VOLUME 7.4 FL (7.4-10.4); MONOCYTES # (AUTO) 0.3 X10'3 (0-0.9); MONOCYTES % (AUTO) 2.7 % (2-12); NEUTROPHILS # (AUTO) 11.7 X10'3 (1.8-7.7); NEUTROPHILS % (AUTO) 93.1 % (42-75); PLATELET COUNT 336 X10'3 (140-440); RED BLOOD COUNT 4.61 X10'6 (4.70-6.10); RED CELL DISTRIBUTION WIDTH 13.5 % (11.5-14.5); WHITE BLOOD COUNT 12.5 X10'3 (4.5-11.0)
[2020-01-16 07:02] LABS: D-DIMER 1.95 MG/L FEU (0-0.50)
[2020-01-16] MEDS: K and/or MAG REPLACEMENT MC SCH ×2 (08:00→20:00)
[2020-01-16 10:00] VITALS: BP 112/64
[2020-01-16] MEDS: methylPREDNISolone sod succ/PF 40mg inj. IV SCH ×2 (10:19→21:02)
[2020-01-16] MEDS: ascorbic acid 500mg tablet PO SCH (10:22)
[2020-01-16] MEDS: pantoprazole 40mg Tablet.DR PO SCH (10:22)
[2020-01-16] MEDS: multivitamins, therapeutics tablet PO SCH (10:22)
[2020-01-16] MEDS: vitamin B comp w/Vit. C tab 1 TAB TABLET PO SCH (10:22)
[2020-01-16] MEDS: OMEGA-3/DHA/EPA/FISH OIL 1 EACH CAPSULE.DR PO SCH (10:22)
[2020-01-16] MEDS: lisinopril 5mg tablet PO SCH (10:23)
[2020-01-16] MEDS: enoxaparin 30mg/0.3ml syringe SUBCUT SCH (10:23)
[2020-01-16] MEDS: enoxaparin 100mg/ml syringe SUBCUT SCH (10:24)
[2020-01-16 18:00] VITALS: BP 132/78
--- NOTE | 2020-01-16 18:00 | NUR ---
Patient in room ORTHO 4018. I have received report from SUYAPA Lassiter and had the opportunity to ask questions and assume patient care.
[2020-01-16 21:00] VITALS: BP 142/75
[2020-01-16] MEDS: HYDROcodone/acetaminophen 10/325mg tab PO PRN (21:03)
[2020-01-16] MEDS: apixaban 5mg tablet PO SCH (21:03)
[2020-01-16] MEDS: LORazepam 0.5 MG tablet PO PRN (21:18)
[2020-01-16 22:00] VITALS: BP 139/69
[2020-01-17] VITALS (7 sets, daily range): BP systolic 115–146; BP diastolic 69–89
[2020-01-17] MEDS: diltiazem 30mg tablet PO SCH ×4 (02:12→20:13)
[2020-01-17 06:00] LABS: BASOPHILS % (AUTO) 0.3 % (0-1); EOSINOPHILS % (AUTO) 0 % (0-6); HEMATOCRIT 41.5 % (42.0-52.0); HEMOGLOBIN 14.2 g/dl (14.0-17.9); LYMPHOCYTES # (AUTO) 0.3 X10'3 (1.1-4.8); LYMPHOCYTES % (AUTO) 2.2 % (21-51); MEAN CORPUSCULAR HEMOGLOBIN 30.3 PG (27.0-31.0); MEAN CORPUSCULAR HGB CONC 34.1 g/dL (33.0-36.5); MEAN CORPUSCULAR VOLUME 88.9 FL (78-98); MEAN PLATELET VOLUME 7.4 FL (7.4-10.4); MONOCYTES # (AUTO) 0.4 X10'3 (0-0.9); MONOCYTES % (AUTO) 3.1 % (2-12); NEUTROPHILS # (AUTO) 12.4 X10'3 (1.8-7.7); NEUTROPHILS % (AUTO) 94.4 % (42-75); PLATELET COUNT 327 X10'3 (140-440); RED BLOOD COUNT 4.66 X10'6 (4.70-6.10); WHITE BLOOD COUNT 13.1 X10'3 (4.5-11.0)
--- NOTE | 2020-01-17 06:25 | NUR ---
Problems reprioritized. Patient report given, questions answered & plan of care reviewed with SUYAPA Lassiter.
[2020-01-17 07:14] LABS: ALANINE AMINOTRANSFERASE 54 U/L (12-78); ALBUMIN 2.2 G/DL (3.4-5.0); ALBUMIN/GLOBULIN RATIO 0.6 (1.1-1.5); ALKALINE PHOSPHATASE 121 IU/L (46-116); ANION GAP 7 (8-16); ASPARTATE AMINO TRANSFERASE 22 U/L (10-37); BILIRUBIN,TOTAL 0.3 MG/DL (0.1-1.0); BLOOD UREA NITROGEN 23 MG/DL (7-18); CALCIUM 8.7 MG/DL (8.5-10.1); CHLORIDE 102 MMOL/L (99-107); POTASSIUM 4.7 MMOL/L (3.5-5.1); SODIUM 135 MMOL/L (135-145); TOTAL CARBON DIOXIDE 25.8 MMOL/L (24-32); eGFR 78 ML/MIN
[2020-01-17 07:15] LABS: GLUCOSE 169 MG/DL (70-104)
[2020-01-17] MEDS: K and/or MAG REPLACEMENT MC SCH ×2 (08:00→20:00)
[2020-01-17] MEDS: pantoprazole 40mg Tablet.DR PO SCH (09:27)
[2020-01-17] MEDS: multivitamins, therapeutics tablet PO SCH (09:27)
[2020-01-17] MEDS: vitamin B comp w/Vit. C tab 1 TAB TABLET PO SCH (09:27)
[2020-01-17] MEDS: ascorbic acid 500mg tablet PO SCH (09:27)
[2020-01-17] MEDS: lisinopril 5mg tablet PO SCH (09:27)
[2020-01-17] MEDS: OMEGA-3/DHA/EPA/FISH OIL 1 EACH CAPSULE.DR PO SCH (09:27)
[2020-01-17] MEDS: methylPREDNISolone sod succ/PF 40mg inj. IV SCH ×2 (09:28→20:11)
[2020-01-17] MEDS: apixaban 5mg tablet PO SCH ×2 (09:28→20:12)
--- NOTE | 2020-01-17 12:07 | NUR ---
Per Dr Giordano request the pt was trialed on high flow salter at 15L, the patient desated down to 82, so I placed him back on the non rebreather
--- NOTE | 2020-01-17 15:56 | NUR ---
PAGER ID: [phone] MESSAGE: Sravani [phone] re Mr Alex Burgos- Please call me to discuss updates. Thank you!
--- NOTE | 2020-01-17 18:30 | NUR ---
Patient in room ORTHO 4018. I have received report from SUYAPA Lassiter and had the opportunity to ask questions and assume patient care.
[2020-01-17] MEDS: LORazepam 0.5 MG tablet PO PRN (20:11)
[2020-01-17] MEDS: HYDROcodone/acetaminophen 5mg/325mg tablet PO PRN (20:12)
[2020-01-18] MEDS: diltiazem 30mg tablet PO SCH ×4 (01:59→19:40)
[2020-01-18 02:00] VITALS: BP 156/92
[2020-01-18] MEDS: LORazepam 0.5 MG tablet PO PRN ×2 (04:19→19:39)
[2020-01-18 06:00] VITALS: BP 138/76
--- NOTE | 2020-01-18 06:19 | NUR ---
Problems reprioritized. Patient report given, questions answered & plan of care reviewed with SUYAPA Jang.
--- NOTE | 2020-01-18 06:31 | NUR ---
Patient in room ORTHO 4018. I have received report from SUYAPA Zarate and had the opportunity to ask questions and assume patient care.
[2020-01-18 06:44] LABS: BASOPHILS % (AUTO) 0.1 % (0-1); EOSINOPHILS % (AUTO) 0.1 % (0-6); HEMATOCRIT 42.6 % (42.0-52.0); HEMOGLOBIN 14.1 g/dl (14.0-17.9); LYMPHOCYTES # (AUTO) 0.3 X10'3 (1.1-4.8); LYMPHOCYTES % (AUTO) 2.1 % (21-51); MEAN CORPUSCULAR HEMOGLOBIN 29.3 PG (27.0-31.0); MEAN CORPUSCULAR HGB CONC 33.1 g/dL (33.0-36.5); MEAN CORPUSCULAR VOLUME 88.6 FL (78-98); MEAN PLATELET VOLUME 7.4 FL (7.4-10.4); MONOCYTES # (AUTO) 0.6 X10'3 (0-0.9); MONOCYTES % (AUTO) 4.5 % (2-12); NEUTROPHILS # (AUTO) 12.9 X10'3 (1.8-7.7); NEUTROPHILS % (AUTO) 93.2 % (42-75); PLATELET COUNT 334 X10'3 (140-440); RED BLOOD COUNT 4.81 X10'6 (4.70-6.10); RED CELL DISTRIBUTION WIDTH 14.4 % (11.5-14.5); WHITE BLOOD COUNT 13.8 X10'3 (4.5-11.0)
[2020-01-18 06:49] LABS: D-DIMER 3.91 MG/L FEU (0-0.50)
[2020-01-18 07:09] LABS: ALANINE AMINOTRANSFERASE 67 U/L (12-78); ALBUMIN 2.2 G/DL (3.4-5.0); ALBUMIN/GLOBULIN RATIO 0.6 (1.1-1.5); ALKALINE PHOSPHATASE 97 IU/L (46-116); ANION GAP 8 (8-16); ASPARTATE AMINO TRANSFERASE 19 U/L (10-37); BILIRUBIN,TOTAL 0.3 MG/DL (0.1-1.0); BLOOD UREA NITROGEN 23 MG/DL (7-18); CALCIUM 8.5 MG/DL (8.5-10.1); CHLORIDE 101 MMOL/L (99-107); CREATININE 0.92 MG/DL (0.60-1.10); POTASSIUM 5.1 MMOL/L (3.5-5.1); SODIUM 136 MMOL/L (135-145); TOTAL CARBON DIOXIDE 27.4 MMOL/L (24-32); eGFR 86 ML/MIN
[2020-01-18 07:10] LABS: GLUCOSE 116 MG/DL (70-104)
[2020-01-18] MEDS: K and/or MAG REPLACEMENT MC SCH ×2 (07:16→20:00)
[2020-01-18] MEDS: methylPREDNISolone sod succ/PF 40mg inj. IV SCH ×2 (08:17→19:39)
[2020-01-18] MEDS: vitamin B comp w/Vit. C tab 1 TAB TABLET PO SCH (08:19)
[2020-01-18] MEDS: apixaban 5mg tablet PO SCH ×2 (08:19→19:39)
[2020-01-18] MEDS: pantoprazole 40mg Tablet.DR PO SCH (08:19)
[2020-01-18] MEDS: OMEGA-3/DHA/EPA/FISH OIL 1 EACH CAPSULE.DR PO SCH (08:19)
[2020-01-18] MEDS: multivitamins, therapeutics tablet PO SCH (08:20)
[2020-01-18] MEDS: ascorbic acid 500mg tablet PO SCH (08:20)
[2020-01-18] MEDS: lisinopril 5mg tablet PO SCH (08:21)
[2020-01-18 10:00] VITALS: BP 161/77
--- NOTE | 2020-01-18 14:46 | NUR ---
Reassessment: Pt PO 75-100% avg regular diet; double proteins TIDWM added to better meet protein needs using IBW +10% since pending scaled wt this admit. CRP now WNL. LBM 01/16. No nutrition concerns at this time. Will continue to monitor. Recommendations: 1) Continue regular diet; double proteins TIDWM 2) Bowel care per rx 3) Scaled weight this admit Addendum: 01/18/20 at [address] Amended: Links added.
[2020-01-18 18:00] VITALS: BP 141/87
--- NOTE | 2020-01-18 18:10 | NUR ---
Patient in room ORTHO 4018. I have received report from SUYAPA Starks and had the opportunity to ask questions and assume patient care.
--- NOTE | 2020-01-18 18:10 | NUR ---
Problems reprioritized. Patient report given, questions answered & plan of care reviewed with SUYAPA MENDEZ.
[2020-01-18] MEDS: HYDROcodone/acetaminophen 5mg/325mg tablet PO PRN (19:39)
[2020-01-18 22:00] VITALS: BP 141/87
[2020-01-19] MEDS: diltiazem 30mg tablet PO SCH ×4 (02:15→19:32)
[2020-01-19 04:57] VITALS: BP 151/80
[2020-01-19 05:56] LABS: HEMATOCRIT 42.1 % (42.0-52.0); HEMOGLOBIN 14.1 g/dl (14.0-17.9); MEAN CORPUSCULAR HGB CONC 33.4 g/dL (33.0-36.5); MEAN CORPUSCULAR VOLUME 89.6 FL (78-98); MEAN PLATELET VOLUME 7.2 FL (7.4-10.4); PLATELET COUNT 249 X10'3 (140-440); RED BLOOD COUNT 4.71 X10'6 (4.70-6.10); RED CELL DISTRIBUTION WIDTH 13.8 % (11.5-14.5); WHITE BLOOD COUNT 15.8 X10'3 (4.5-11.0)
[2020-01-19 06:08] LABS: ALANINE AMINOTRANSFERASE 51 U/L (12-78); ALBUMIN 2.1 G/DL (3.4-5.0); ALBUMIN/GLOBULIN RATIO 0.6 (1.1-1.5); ALKALINE PHOSPHATASE 93 IU/L (46-116); ANION GAP 4 (8-16); ASPARTATE AMINO TRANSFERASE 18 U/L (10-37); BILIRUBIN,TOTAL 0.4 MG/DL (0.1-1.0); BLOOD UREA NITROGEN 23 MG/DL (7-18); C-REACTIVE PROTEIN 0.34 MG/DL (0.0-0.5); CALCIUM 7.8 MG/DL (8.5-10.1); CHLORIDE 100 MMOL/L (99-107); POTASSIUM 4.4 MMOL/L (3.5-5.1); SODIUM 135 MMOL/L (135-145); TOTAL CARBON DIOXIDE 31.1 MMOL/L (24-32); TOTAL PROTEIN 5.7 G/DL (6.4-8.2); eGFR 78 ML/MIN
--- NOTE | 2020-01-19 06:08 | NUR ---
Problems reprioritized. Patient report given, questions answered & plan of care reviewed with SUYAPA Starks.
[2020-01-19 06:14] LABS: D-DIMER 9.34 MG/L FEU (0-0.50)
[2020-01-19 06:15] LABS: GLUCOSE 87 MG/DL (70-104)
--- NOTE | 2020-01-19 06:17 | NUR ---
Patient in room ORTHO 4018. I have received report from SUYAPA MENDEZ and had the opportunity to ask questions and assume patient care.
[2020-01-19] MEDS: K and/or MAG REPLACEMENT MC SCH ×2 (06:54→20:00)
[2020-01-19 07:34] LABS: TOTAL CELLS COUNTED 100
[2020-01-19 07:35] LABS: PLATELET ESTIMATE NORMAL
--- NOTE | 2020-01-19 07:52 | NUR ---
Page Sent PAGER ID: [phone] MESSAGE: OTONIEL [id number]-RE: [id number] JOSEF LEE... WBC, CRP AND D-DIMER TRENDING UP...ANY NEW ORDERS?
[2020-01-19] MEDS: vitamin B comp w/Vit. C tab 1 TAB TABLET PO SCH (08:00)
[2020-01-19] MEDS: apixaban 5mg tablet PO SCH ×2 (09:10→19:33)
[2020-01-19] MEDS: OMEGA-3/DHA/EPA/FISH OIL 1 EACH CAPSULE.DR PO SCH (09:10)
[2020-01-19] MEDS: pantoprazole 40mg Tablet.DR PO SCH (09:10)
[2020-01-19] MEDS: multivitamins, therapeutics tablet PO SCH (09:11)
[2020-01-19] MEDS: ascorbic acid 500mg tablet PO SCH (09:11)
[2020-01-19] MEDS: lisinopril 5mg tablet PO SCH (09:12)
[2020-01-19] MEDS: methylPREDNISolone sod succ/PF 40mg inj. IV SCH ×2 (09:13→19:32)
[2020-01-19 10:00] VITALS: BP 118/70
[2020-01-19] MEDS: HYDROcodone/acetaminophen 5mg/325mg tablet PO PRN (11:50)
--- NOTE | 2020-01-19 16:31 | NUR ---
REC'D CALL FROM TELE, PTS O2 WAS MID 80'S. PT WAS ON RA SINCE EARLY THIS AM. PLACED O2 ON PT, 2L. O2 WOULD NOT INCREASE, INCREASED O2 TO 4L. STILL WOULD NOT GO ABOVE 85%. TURNED O2 UP TO 6L WITH NO HELP. PLACED NON REBREATHER ON PT WITH 15L O2 AND O2 WENT TO 97%. Addendum: 01/19/20 at 1651 by Tereza Lambert RN WRONG PT
[2020-01-19 18:00] VITALS: BP 132/103
--- NOTE | 2020-01-19 18:35 | NUR ---
Problems reprioritized. Patient report given, questions answered & plan of care reviewed with SUYAPA OCASIO.
[2020-01-19] MEDS: HYDROcodone/acetaminophen 10/325mg tab PO PRN (19:33)
[2020-01-19 19:51] VITALS: BP 127/64
[2020-01-19 22:00] VITALS: BP 107/63
[2020-01-19] MEDS: LORazepam 0.5 MG tablet PO PRN (22:09)
--- NOTE | 2020-01-20 | NUR ---
pt requested ativan for anxiety when he puts bipap on at night. tolerated well.
[2020-01-20] MEDS: diltiazem 30mg tablet PO SCH ×4 (01:57→22:16)
[2020-01-20 06:00] VITALS: BP 159/89
--- NOTE | 2020-01-20 06:23 | NUR ---
reported to days. noted pt resting w/o distress. no labs ordered this am.
--- NOTE | 2020-01-20 06:37 | NUR ---
Patient in room ORTHO 4018. I have received report from SUYAPA BEJARANO and had the opportunity to ask questions and assume patient care.
[2020-01-20] MEDS: K and/or MAG REPLACEMENT MC SCH ×2 (08:00→21:35)
[2020-01-20] MEDS ORDERED: apixaban 5mg tablet PO SCH (08:00)
[2020-01-20] MEDS: methylPREDNISolone sod succ/PF 40mg inj. IV SCH ×2 (08:39→22:17)
[2020-01-20] MEDS: OMEGA-3/DHA/EPA/FISH OIL 1 EACH CAPSULE.DR PO SCH (08:41)
[2020-01-20] MEDS: vitamin B comp w/Vit. C tab 1 TAB TABLET PO SCH (08:42)
[2020-01-20] MEDS: pantoprazole 40mg Tablet.DR PO SCH (08:42)
[2020-01-20] MEDS: multivitamins, therapeutics tablet PO SCH (08:42)
[2020-01-20] MEDS: ascorbic acid 500mg tablet PO SCH (08:43)
[2020-01-20] MEDS: lisinopril 5mg tablet PO SCH (08:44)
[2020-01-20] MEDS: enoxaparin 30mg/0.3ml syringe SUBCUT SCH ×2 (08:46→22:16)
[2020-01-20] MEDS: enoxaparin 100mg/ml syringe SUBCUT SCH ×2 (08:47→22:16)
[2020-01-20 10:00] VITALS: BP 119/68
--- NOTE | 2020-01-20 18:26 | NUR ---
Problems reprioritized. Patient report given, questions answered & plan of care reviewed with SUYAPA Felix.
[2020-01-20 18:58] VITALS: BP 141/75
[2020-01-20] MEDS: LORazepam 0.5 MG tablet PO PRN (22:16)
[2020-01-20] MEDS: HYDROcodone/acetaminophen 5mg/325mg tablet PO PRN (22:17)
[2020-01-20] MEDS: benzocaine/menthol oral lozeng 1 EACH BOX MM PRN (22:19)
[2020-01-20 22:30] VITALS: BP 127/68
[2020-01-21] MEDS: diltiazem 30mg tablet PO SCH ×4 (02:30→21:08)
--- NOTE | 2020-01-21 02:56 | NUR ---
noted pt on NRB at 15L and sats 95%
[2020-01-21] MEDS: benzocaine/menthol oral lozeng 1 EACH BOX MM PRN ×2 (03:33→10:02)
--- NOTE | 2020-01-21 06:15 | NUR ---
Patient in room ORTHO 4018. I have received report from Elvira and had the opportunity to ask questions and assume patient care.
--- NOTE | 2020-01-21 06:51 | NUR ---
reported to days. noted pt will attempt to wean some oxygen today.
[2020-01-21 07:52] LABS: BASOPHILS % (AUTO) 0.2 % (0-1); EOSINOPHILS % (AUTO) 0.1 % (0-6); HEMATOCRIT 42.4 % (42.0-52.0); HEMOGLOBIN 14.1 g/dl (14.0-17.9); LYMPHOCYTES # (AUTO) 0.3 X10'3 (1.1-4.8); LYMPHOCYTES % (AUTO) 2.3 % (21-51); MEAN CORPUSCULAR HEMOGLOBIN 29.6 PG (27.0-31.0); MEAN CORPUSCULAR HGB CONC 33.2 g/dL (33.0-36.5); MEAN CORPUSCULAR VOLUME 89.3 FL (78-98); MEAN PLATELET VOLUME 7.4 FL (7.4-10.4); MONOCYTES # (AUTO) 0.8 X10'3 (0-0.9); MONOCYTES % (AUTO) 5.2 % (2-12); NEUTROPHILS % (AUTO) 92.2 % (42-75); PLATELET COUNT 228 X10'3 (140-440); RED BLOOD COUNT 4.75 X10'6 (4.70-6.10); WHITE BLOOD COUNT 15.1 X10'3 (4.5-11.0)
[2020-01-21] MEDS: K and/or MAG REPLACEMENT MC SCH ×2 (07:55→20:00)
[2020-01-21 07:58] LABS: D-DIMER 2.85 MG/L FEU (0-0.50)
[2020-01-21 08:00] VITALS: BP 128/87
[2020-01-21 08:00] LABS: ALBUMIN 2.3 G/DL (3.4-5.0); ANION GAP 5 (8-16); BLOOD UREA NITROGEN 23 MG/DL (7-18); BUN/CREATININE RATIO 24.7 (5.4-32.0); C-REACTIVE PROTEIN 1.22 MG/DL (0.0-0.5); CALCIUM 8.6 MG/DL (8.5-10.1); CHLORIDE 102 MMOL/L (99-107); CREATININE 0.93 MG/DL (0.60-1.10); GLUCOSE 122 MG/DL (70-104); POTASSIUM 5.1 MMOL/L (3.5-5.1); SODIUM 138 MMOL/L (135-145); TOTAL CARBON DIOXIDE 30.6 MMOL/L (24-32); eGFR 85 ML/MIN
[2020-01-21] MEDS: OMEGA-3/DHA/EPA/FISH OIL 1 EACH CAPSULE.DR PO SCH (08:02)
[2020-01-21] MEDS: methylPREDNISolone sod succ/PF 40mg inj. IV SCH ×2 (08:02→21:11)
[2020-01-21] MEDS: ascorbic acid 500mg tablet PO SCH (08:03)
[2020-01-21] MEDS: multivitamins, therapeutics tablet PO SCH (08:03)
[2020-01-21] MEDS: enoxaparin 30mg/0.3ml syringe SUBCUT SCH ×2 (08:04→21:11)
[2020-01-21] MEDS: enoxaparin 100mg/ml syringe SUBCUT SCH ×2 (08:04→21:11)
[2020-01-21] MEDS: lisinopril 5mg tablet PO SCH (08:22)
[2020-01-21] MEDS: pantoprazole 40mg Tablet.DR PO SCH (08:23)
[2020-01-21 10:00] VITALS: BP 112/67
[2020-01-21] MEDS ORDERED: FLU VACC QS2020-21(6MOS UP)/PF 60 MCG/0.5 ML SYRINGE IMVAC ONE (10:00)
[2020-01-21] MEDS: vitamin B comp w/Vit. C tab 1 TAB TABLET PO SCH (10:02)
--- NOTE | 2020-01-21 18:28 | NUR ---
Problems reprioritized. Patient report given, questions answered & plan of care reviewed with
[2020-01-21] MEDS: HYDROcodone/acetaminophen 10/325mg tab PO PRN (21:10)
[2020-01-21] MEDS: LORazepam 0.5 MG tablet PO PRN (21:11)
[2020-01-21 22:00] VITALS: BP 113/52
[2020-01-22] MEDS: diltiazem 30mg tablet PO SCH ×4 (01:35→20:38)
[2020-01-22 04:42] VITALS: BP 123/66
[2020-01-22 06:00] VITALS: BP 124/72
--- NOTE | 2020-01-22 06:25 | NUR ---
Problems reprioritized. Patient report given, questions answered & plan of care reviewed with Patricia DALE.
[2020-01-22] MEDS: enoxaparin 30mg/0.3ml syringe SUBCUT SCH ×2 (07:39→20:37)
[2020-01-22] MEDS: enoxaparin 100mg/ml syringe SUBCUT SCH ×2 (07:40→20:38)
[2020-01-22] MEDS: ascorbic acid 500mg tablet PO SCH (07:41)
[2020-01-22] MEDS: pantoprazole 40mg Tablet.DR PO SCH (07:41)
[2020-01-22] MEDS: multivitamins, therapeutics tablet PO SCH (07:41)
[2020-01-22] MEDS: metoprolol tartrate 25mg tablet PO SCH ×2 (07:43→20:37)
[2020-01-22] MEDS: OMEGA-3/DHA/EPA/FISH OIL 1 EACH CAPSULE.DR PO SCH (07:43)
[2020-01-22] MEDS: methylPREDNISolone sod succ/PF 40mg inj. IV SCH ×2 (07:44→20:36)
[2020-01-22] MEDS: vitamin B comp w/Vit. C tab 1 TAB TABLET PO SCH (07:45)
[2020-01-22] MEDS: K and/or MAG REPLACEMENT MC SCH ×2 (08:00→20:00)
[2020-01-22 09:17] LABS: D-DIMER 2.03 MG/L FEU (0-0.50)
[2020-01-22 11:00] VITALS: BP 110/68
--- NOTE | 2020-01-22 13:36 | NUR ---
F/u 01/21: Pt PO continues ~90-100% avg regular diet w/ double proteins TIDWM meeting needs. LBM 01/19. CRP WNL today. No nutrition concerns at this time. Will continue to monitor. Recommendations: 1) Continue regular diet; double proteins TIDWM 2) Bowel care per rx 3) Scaled weight this admit Addendum: 01/22/20 at [address] Amended: Links added.
[2020-01-22 15:00] VITALS: BP 116/76
[2020-01-22 18:00] VITALS: BP 116/76
--- NOTE | 2020-01-22 18:30 | NUR ---
Patient in room ORTHO 4018. I have received report from Patricia DALE and had the opportunity to ask questions and assume patient care.
[2020-01-22] MEDS: LORazepam 0.5 MG tablet PO PRN (20:38)
[2020-01-22] MEDS: HYDROcodone/acetaminophen 10/325mg tab PO PRN (20:39)
[2020-01-22 22:00] VITALS: BP 109/82
[2020-01-23] MEDS: diltiazem 30mg tablet PO SCH ×4 (02:12→20:14)
[2020-01-23 06:00] VITALS: BP 127/75
--- NOTE | 2020-01-23 06:15 | NUR ---
Patient in room ORTHO 4018. I have received report from Shanika and had the opportunity to ask questions and assume patient care.
--- NOTE | 2020-01-23 06:42 | NUR ---
Problems reprioritized. Patient report given, questions answered & plan of care reviewed with Drea DALE.
[2020-01-23 07:41] LABS: D-DIMER 1.62 MG/L FEU (0-0.50)
[2020-01-23] MEDS: K and/or MAG REPLACEMENT MC SCH ×2 (08:00→20:00)
[2020-01-23] MEDS: methylPREDNISolone sod succ/PF 40mg inj. IV SCH ×2 (08:12→20:11)
[2020-01-23] MEDS: pantoprazole 40mg Tablet.DR PO SCH (08:13)
[2020-01-23] MEDS: vitamin B comp w/Vit. C tab 1 TAB TABLET PO SCH (08:13)
[2020-01-23] MEDS: multivitamins, therapeutics tablet PO SCH (08:13)
[2020-01-23] MEDS: ascorbic acid 500mg tablet PO SCH (08:13)
[2020-01-23] MEDS: enoxaparin 100mg/ml syringe SUBCUT SCH ×2 (08:13→20:12)
[2020-01-23] MEDS: OMEGA-3/DHA/EPA/FISH OIL 1 EACH CAPSULE.DR PO SCH (08:13)
[2020-01-23] MEDS: enoxaparin 30mg/0.3ml syringe SUBCUT SCH ×2 (08:14→20:12)
[2020-01-23] MEDS: metoprolol tartrate 25mg tablet PO SCH (08:28)
[2020-01-23 10:00] VITALS: BP 122/73
[2020-01-23 18:00] VITALS: BP 127/71
--- NOTE | 2020-01-23 18:17 | NUR ---
Problems reprioritized. Patient report given, questions answered & plan of care reviewed with Tessa.
[2020-01-23] MEDS ORDERED: zolpidem 5mg tablet PO PRN (19:55)
[2020-01-23] MEDS: LORazepam 0.5 MG tablet PO PRN (20:13)
[2020-01-23] MEDS: metoprolol tartrate 50mg tablet PO SCH (20:13)
[2020-01-23] MEDS: HYDROcodone/acetaminophen 10/325mg tab PO PRN (20:14)
[2020-01-23 22:00] VITALS: BP 138/68
[2020-01-24] VITALS (7 sets, daily range): BP systolic 13–150; BP diastolic 61–87
[2020-01-24] MEDS: diltiazem 30mg tablet PO SCH ×4 (02:02→20:07)
--- NOTE | 2020-01-24 06:24 | NUR ---
Patient in room ORTHO 4015. I have received report from Tessa DALE and had the opportunity to ask questions and assume patient care.
--- NOTE | 2020-01-24 06:24 | NUR ---
Problems reprioritized. Patient report given, questions answered & plan of care reviewed with SUYAPA Lin.
[2020-01-24] MEDS: multivitamins, therapeutics tablet PO SCH (07:55)
[2020-01-24] MEDS: OMEGA-3/DHA/EPA/FISH OIL 1 EACH CAPSULE.DR PO SCH (07:55)
[2020-01-24] MEDS: enoxaparin 100mg/ml syringe SUBCUT SCH ×2 (07:55→20:06)
[2020-01-24] MEDS: enoxaparin 30mg/0.3ml syringe SUBCUT SCH ×2 (07:55→20:06)
[2020-01-24] MEDS: ascorbic acid 500mg tablet PO SCH (07:55)
[2020-01-24] MEDS: vitamin B comp w/Vit. C tab 1 TAB TABLET PO SCH (07:55)
[2020-01-24] MEDS: pantoprazole 40mg Tablet.DR PO SCH (07:56)
[2020-01-24] MEDS: metoprolol tartrate 50mg tablet PO SCH ×2 (07:58→20:07)
[2020-01-24] MEDS: methylPREDNISolone sod succ/PF 40mg inj. IV SCH ×2 (07:58→20:06)
[2020-01-24] MEDS: K and/or MAG REPLACEMENT MC SCH ×2 (08:00→20:00)
[2020-01-24] MEDS: LORazepam 0.5 MG tablet PO PRN (08:05)
[2020-01-24 09:21] LABS: D-DIMER 1.35 MG/L FEU (0-0.50)
--- NOTE | 2020-01-24 18:14 | NUR ---
Problems reprioritized. Patient report given, questions answered & plan of care reviewed with Tessa DALE.
--- NOTE | 2020-01-24 18:15 | NUR ---
Patient in room ORTHO 4015. I have received report from SUYAPA Lin and had the opportunity to ask questions and assume patient care.
--- NOTE | 2020-01-24 19:45 | NUR ---
Problems reprioritized. Patient report given, questions answered & plan of care reviewed with SUYAPA Adams.
[2020-01-24] MEDS: HYDROcodone/acetaminophen 10/325mg tab PO PRN (20:07)
--- NOTE | 2020-01-24 20:15 | NUR ---
Patient in room PCU 3012. I received report from Tessa DALE at 1999 and had the opportunity to ask questions and assume patient care.
[2020-01-24] MEDS: temazepam 15mg capsule PO PRN (22:58)
[2020-01-24] MEDS: LORazepam 1 MG tablet PO PRN (22:58)
[2020-01-25 02:00] VITALS: BP 122/71
[2020-01-25] MEDS: diltiazem 30mg tablet PO SCH ×4 (02:29→20:13)
--- NOTE | 2020-01-25 06:32 | NUR ---
Problems reprioritized. Patient report given, questions answered & plan of care reviewed with Willow DALE.
[2020-01-25 07:00] VITALS: BP 114/74
--- NOTE | 2020-01-25 07:09 | NUR ---
Patient in room PCU 3012. I have received report from Angie DALE and had the opportunity to ask questions and assume patient care.
[2020-01-25] MEDS: K and/or MAG REPLACEMENT MC SCH ×2 (08:00→20:00)
[2020-01-25] MEDS: ascorbic acid 500mg tablet PO SCH (09:18)
[2020-01-25] MEDS: OMEGA-3/DHA/EPA/FISH OIL 1 EACH CAPSULE.DR PO SCH (09:18)
[2020-01-25] MEDS: pantoprazole 40mg Tablet.DR PO SCH (09:19)
[2020-01-25] MEDS: metoprolol tartrate 50mg tablet PO SCH ×2 (09:19→20:14)
[2020-01-25] MEDS: multivitamins, therapeutics tablet PO SCH (09:19)
[2020-01-25] MEDS: enoxaparin 100mg/ml syringe SUBCUT SCH ×2 (09:20→20:26)
[2020-01-25] MEDS: methylPREDNISolone sod succ/PF 40mg inj. IV SCH ×2 (09:20→20:16)
[2020-01-25] MEDS: enoxaparin 30mg/0.3ml syringe SUBCUT SCH ×2 (09:21→20:26)
[2020-01-25] MEDS: vitamin B comp w/Vit. C tab 1 TAB TABLET PO SCH (09:33)
--- NOTE | 2020-01-25 10:38 | NUR ---
PAGER ID: [phone] MESSAGE: [id number] Edson Ramos. Pt. doesn't have labs, if you want them please advise. Willow DALE ext [phone]
[2020-01-25 11:00] VITALS: BP 140/68
[2020-01-25 15:00] VITALS: BP 113/75
[2020-01-25 18:00] VITALS: BP 145/84
--- NOTE | 2020-01-25 18:32 | NUR ---
Problems reprioritized. Patient report given, questions answered & plan of care reviewed with Chelsey DALE.
[2020-01-25 22:00] VITALS: BP 128/84
[2020-01-25] MEDS: temazepam 15mg capsule PO PRN (22:53)
[2020-01-26 02:00] VITALS: BP 114/75
[2020-01-26] MEDS: diltiazem 30mg tablet PO SCH ×4 (02:07→20:25)
--- NOTE | 2020-01-26 06:28 | NUR ---
Patient in room PCU 3012. I have received report from Sangita DALE and had the opportunity to ask questions and assume patient care.
[2020-01-26 07:00] VITALS: BP 124/68
[2020-01-26] MEDS: K and/or MAG REPLACEMENT MC SCH ×2 (08:00→20:00)
[2020-01-26] MEDS: OMEGA-3/DHA/EPA/FISH OIL 1 EACH CAPSULE.DR PO SCH (09:06)
[2020-01-26] MEDS: methylPREDNISolone sod succ/PF 40mg inj. IV SCH (09:06)
[2020-01-26] MEDS: multivitamins, therapeutics tablet PO SCH (09:07)
[2020-01-26] MEDS: metoprolol tartrate 50mg tablet PO SCH ×2 (09:07→20:25)
[2020-01-26] MEDS: vitamin B comp w/Vit. C tab 1 TAB TABLET PO SCH (09:07)
[2020-01-26] MEDS: pantoprazole 40mg Tablet.DR PO SCH (09:07)
[2020-01-26] MEDS: enoxaparin 30mg/0.3ml syringe SUBCUT SCH (09:08)
[2020-01-26] MEDS: enoxaparin 100mg/ml syringe SUBCUT SCH (09:08)
[2020-01-26] MEDS: ascorbic acid 500mg tablet PO SCH (09:09)
[2020-01-26 11:00] VITALS: BP 115/73
--- NOTE | 2020-01-26 11:49 | NUR ---
Titrated patients oxygen from 13L to 6, patient maintained sats between 90-95 for approximately 1 hour. Patient desated to 88%, increased oxygen to 8L high flow. Patient is doing well and denies any dyspnea. Pt. also ambulated with PT today and sated his oxygen saturations did not drop. Pt. is very pleased with his progress. stated if we can get him down to 5L, he may discharge in a few days.
[2020-01-26 15:00] VITALS: BP 123/76
[2020-01-26] MEDS: rivaroxaban 15mg tablet PO SCH (17:11)
--- NOTE | 2020-01-26 18:46 | NUR ---
Patient is doing great on 8L high flow, patient is moving around and sating from 91-96%. Plan is to try to decrease him to 6L tomorrow.
--- NOTE | 2020-01-26 18:47 | NUR ---
Patient in room PCU 3012. I have received report from Willow DALE and had the opportunity to ask questions and assume patient care.
--- NOTE | 2020-01-26 18:47 | NUR ---
Problems reprioritized. Patient report given, questions answered & plan of care reviewed with Tereza DALE.
[2020-01-26 20:07] VITALS: BP 115/68
[2020-01-26] MEDS: temazepam 15mg capsule PO PRN (21:57)
[2020-01-26 22:00] VITALS: BP 109/66
[2020-01-27 02:00] VITALS: BP 112/87
[2020-01-27] MEDS: LORazepam 1 MG tablet PO PRN (02:22)
[2020-01-27] MEDS: diltiazem 30mg tablet PO SCH ×2 (02:23→07:40)
--- NOTE | 2020-01-27 06:09 | NUR ---
Problems reprioritized. Patient report given, questions answered & plan of care reviewed with Willow DALE.
--- NOTE | 2020-01-27 06:33 | NUR ---
Patient in room PCU 3012. I have received report from Tereza DALE and had the opportunity to ask questions and assume patient care.
[2020-01-27 07:00] VITALS: BP 129/75
[2020-01-27] MEDS: OMEGA-3/DHA/EPA/FISH OIL 1 EACH CAPSULE.DR PO SCH (07:41)
[2020-01-27] MEDS: pantoprazole 40mg Tablet.DR PO SCH (07:41)
[2020-01-27] MEDS: ascorbic acid 500mg tablet PO SCH (07:41)
[2020-01-27] MEDS: rivaroxaban 15mg tablet PO SCH (07:41)
[2020-01-27] MEDS: multivitamins, therapeutics tablet PO SCH (07:41)
[2020-01-27] MEDS: vitamin B comp w/Vit. C tab 1 TAB TABLET PO SCH (07:42)
[2020-01-27] MEDS: metoprolol tartrate 50mg tablet PO SCH (07:42)
[2020-01-27] MEDS ORDERED: prednisone 10mg tablet PO SCH (08:00)
[2020-01-27] MEDS: K and/or MAG REPLACEMENT MC SCH (08:00)
--- NOTE | 2020-01-27 09:53 | NUR ---
Patient was titrated to 6L NC, sating 90-92%. Pt. reports feeling great. Denies SOB.
[2020-01-27] MEDS ORDERED: PRED10TA23 PO (10:12)
--- NOTE | 2020-01-27 10:40 | NUR ---
O2 Sat at rest on room air: 79% If below 89%: Recovery O2 Sat at rest on 6 LPM:92% via nasal No further documentation is necessary. If O2 Sat did not drop below 89% on room air,ambulate patient on room air. O2 Sat while ambulating on room air:___% Recovery O2 Sat while ambulating on ___LPM:___% No further documentation is necessary. If patient does not drop below 89% while ambulating, he/she does not qualify for home O2.
[2020-01-27] MEDS ORDERED: METO50TA16 PO (10:44)
[2020-01-27] MEDS ORDERED: DILT180C66 PO (10:44)
[2020-01-27 11:00] VITALS: BP 113/69
[2020-01-27] MEDS ORDERED: RIVA20TA PO (11:20)
[2020-01-27] MEDS ORDERED: RIVA15TA PO (11:20)
--- NOTE | 2020-01-27 12:12 | NUR ---
Verified all medications were received - Sent to [facility] on [address].
--- NOTE | 2020-01-27 12:46 | NUR ---
Patient was cleared to discharge. Medications and discharge instructions reviewed with patient. All questions answered. Patient provided oxygen for ride home. Patient was elated to leave and thanked staff for all support given. Sp02 93% on 5L via NC. Patient left in stable conditions. Home meds sent with patient as well.
--- NOTE | 2020-01-27 15:48 | NUR ---
[facility] [address]
--- NOTE | 2020-01-27 15:52 | NUR ---
Patients Rosanna called, verifying medication directions. All meds reviewed thoroughly. She also stated the pharmacy did not have an order for the Xarelto. Spoke to Leonid, pharmacist earlier. Called pharmacy back to confirm, they stated they do infact have the order but that they need insurance info from the patient. Called Rosanna back, informed her. She stated she would go back to the pharmacy.
== END 2020-01-27 12:39 | disposition home or self-care (01) | DRG 177 ==
LOC: ER 16:19 → ED HOLD 21:35 → SUR 3N 22:25 → PCU 3S 01-06 23:19 → ORTHO 4S 01-15 13:58 → PCU 3S 01-24 20:15
PROVIDERS: ADMIT Internal Medicine; ATTEND Internal Medicine
PROC: 5A09357 Assistance with Respiratory Ventilation, Less than 24 Consecutive Hours, Continuous Positive Airway Pressure (ICD-10-PCS; 2020-01-06)
PROC: 5A09357 Assistance with Respiratory Ventilation, Less than 24 Consecutive Hours, Continuous Positive Airway Pressure (ICD-10-PCS; 2020-01-07)
PROC: XW033E5 Introduction of Remdesivir Anti-infective into Peripheral Vein, Percutaneous Approach, New Technology Group 5 (ICD-10-PCS; 2020-01-07)
PROC: 5A09357 Assistance with Respiratory Ventilation, Less than 24 Consecutive Hours, Continuous Positive Airway Pressure (ICD-10-PCS; 2020-01-08)
PROC: 5A09357 Assistance with Respiratory Ventilation, Less than 24 Consecutive Hours, Continuous Positive Airway Pressure (ICD-10-PCS; 2020-01-09)
PROC: 5A09357 Assistance with Respiratory Ventilation, Less than 24 Consecutive Hours, Continuous Positive Airway Pressure (ICD-10-PCS; 2020-01-10)
PROC: 5A09357 Assistance with Respiratory Ventilation, Less than 24 Consecutive Hours, Continuous Positive Airway Pressure (ICD-10-PCS; 2020-01-11)
PROC: 5A09357 Assistance with Respiratory Ventilation, Less than 24 Consecutive Hours, Continuous Positive Airway Pressure (ICD-10-PCS; 2020-01-12)
PROC: 5A09357 Assistance with Respiratory Ventilation, Less than 24 Consecutive Hours, Continuous Positive Airway Pressure (ICD-10-PCS; 2020-01-13)
PROC: 5A09357 Assistance with Respiratory Ventilation, Less than 24 Consecutive Hours, Continuous Positive Airway Pressure (ICD-10-PCS; 2020-01-14)
PROC: 5A09357 Assistance with Respiratory Ventilation, Less than 24 Consecutive Hours, Continuous Positive Airway Pressure (ICD-10-PCS; 2020-01-15)
PROC: 5A09357 Assistance with Respiratory Ventilation, Less than 24 Consecutive Hours, Continuous Positive Airway Pressure (ICD-10-PCS; 2020-01-16)
PROC: 5A09357 Assistance with Respiratory Ventilation, Less than 24 Consecutive Hours, Continuous Positive Airway Pressure (ICD-10-PCS; 2020-01-17)
PROC: 5A09357 Assistance with Respiratory Ventilation, Less than 24 Consecutive Hours, Continuous Positive Airway Pressure (ICD-10-PCS; 2020-01-18)
PROC: 5A09357 Assistance with Respiratory Ventilation, Less than 24 Consecutive Hours, Continuous Positive Airway Pressure (ICD-10-PCS; 2020-01-19)
PROC: 5A09357 Assistance with Respiratory Ventilation, Less than 24 Consecutive Hours, Continuous Positive Airway Pressure (ICD-10-PCS; 2020-01-20)
PROC: 5A09357 Assistance with Respiratory Ventilation, Less than 24 Consecutive Hours, Continuous Positive Airway Pressure (ICD-10-PCS; principal; 2020-01-26)
DX: U07.1 COVID-19 (principal); E43 Unspecified severe protein-calorie malnutrition; J12.89 Other viral pneumonia; J96.01 Acute respiratory failure with hypoxia; E87.1 Hypo-osmolality and hyponatremia; I48.92 Unspecified atrial flutter; R43.9 Unspecified disturbances of smell and taste; E66.9 Obesity, unspecified; G47.00 Insomnia, unspecified; I10 Essential (primary) hypertension; Z79.01 Long term (current) use of anticoagulants; Z68.38 Body mass index [BMI] 38.0-38.9, adult; Z79.899 Other long term (current) drug therapy
CPT/HCPCS: 36415; 71045; 71275; 80048; 80053; 81001; 82728; 83605; 83615; 83735; 83880; 84145; 85007; 85025; 85379; 85384; 86140; 87040; 87081; 87502; 87503; 87635; 93005; 94660; 94760; 96374; 96375; 97110; 97116; 97161; 97530; 99285; C9803; G0378; J1100; J1650; J1885; J1940; J2060; J2920; J2930; J3490; J7030; J7512; Q2039; Q9967

== ENCOUNTER 2020-02-02 08:32 | Inpatient (IN) | payer SELFPAY ==
[~2020-02-02] VITALS: Ht 185.4 cm; Wt 122.7 kg
[~2020-02-02 08:32] MED LIST: ASCO-139 PO; DILT180C66 PO; METO50TA16 PO; MULT-1085 PO; OMEG-79 PO; OMEP-50 PO; PRED10TA23 PO; RIVA15TA PO; RIVA20TA PO; VITA-268 PO
[2020-02-02] MEDS ORDERED: iohexol 350MG/ML 100ml bottle IV ONE (09:31)
--- NOTE | 2020-02-02 09:45 | NUR ---
Discussed pt HR with Dr. Eric, continue to monitor BP and as long as pt sustains BP WNL no meds until CTA completed.
[2020-02-02 09:46] LABS: BASOPHILS # (AUTO) 0.1 X10'3 (0-0.2); BASOPHILS % (AUTO) 0.8 % (0-1); EOSINOPHILS # (AUTO) 0.2 X10'3 (0-0.9); EOSINOPHILS % (AUTO) 1.6 % (0-6); HEMATOCRIT 39.3 % (42.0-52.0); HEMOGLOBIN 13.4 g/dl (14.0-17.9); LYMPHOCYTES # (AUTO) 0.7 X10'3 (1.1-4.8); LYMPHOCYTES % (AUTO) 6.9 % (21-51); MEAN CORPUSCULAR HEMOGLOBIN 30.7 PG (27.0-31.0); MEAN CORPUSCULAR HGB CONC 34.1 g/dL (33.0-36.5); MEAN CORPUSCULAR VOLUME 90.1 FL (78-98); MONOCYTES # (AUTO) 0.6 X10'3 (0-0.9); MONOCYTES % (AUTO) 6.1 % (2-12); NEUTROPHILS # (AUTO) 8.2 X10'3 (1.8-7.7); NEUTROPHILS % (AUTO) 84.6 % (42-75); PLATELET COUNT 246 X10'3 (140-440); RED BLOOD COUNT 4.36 X10'6 (4.70-6.10); RED CELL DISTRIBUTION WIDTH 14.9 % (11.5-14.5); WHITE BLOOD COUNT 9.7 X10'3 (4.5-11.0)
[2020-02-02 09:57] LABS: PARTIAL THROMBOPLASTIN TIME 25 SECONDS (22-32)
[2020-02-02 10:05] LABS: MAGNESIUM 1.7 MG/DL (1.5-2.4)
--- NOTE | 2020-02-02 10:09 | NUR ---
Pt taken to CT with RN, O2 and monitor.
[2020-02-02] MEDS: metoprolol tartrate 1mg/ml inj IV SCH ×2 (10:34→10:55)
[2020-02-02 10:36] LABS: ALANINE AMINOTRANSFERASE 51 U/L (12-78); ALBUMIN 2.8 G/DL (3.4-5.0); ALBUMIN/GLOBULIN RATIO 0.7 (1.1-1.5); ALKALINE PHOSPHATASE 83 IU/L (46-116); ANION GAP 10 (8-16); ASPARTATE AMINO TRANSFERASE 27 U/L (10-37); BILIRUBIN,TOTAL 0.5 MG/DL (0.1-1.0); BLOOD UREA NITROGEN 17 MG/DL (7-18); BUN/CREATININE RATIO 19.8 (5.4-32.0); CALCIUM 8.5 MG/DL (8.5-10.1); CHLORIDE 101 MMOL/L (99-107); CREATININE 0.86 MG/DL (0.60-1.10); GLUCOSE 95 MG/DL (70-104); SODIUM 139 MMOL/L (135-145); TOTAL PROTEIN 7.1 G/DL (6.4-8.2); eGFR > 90 ML/MIN
[2020-02-02] MEDS ORDERED: amiodarone 150mg/dext, iso-os 100 ML IV ONE ×2 (11:00→11:20)
[2020-02-02 11:23] LABS: C-REACTIVE PROTEIN 6.13 MG/DL (0.0-0.5)
[2020-02-02 11:48] LABS: PLATELET ESTIMATE NORMAL; TOTAL CELLS COUNTED 100
[2020-02-02 11:56] LABS: ABG BASE EXCESS 2.5 mmol/L (-2.0-2.0); ABG HCO3 26.1 mmol/L (22.0-26.0); ABG OXYGEN SATURATION 88.8 % (94-97); ABG PO2 (T) 52.5 mmHg (75.0-100.0); ALLEN'S TEST POSITIVE; FCOHb 0.9 % (0.0-3.9); FLOW 15 L/min; FMetHb 0.1 % (0.0-1.5); FO2Hb 87.9 % (94-97)
[2020-02-02] MEDS ORDERED: PRED10TA23 PO (12:34)
[2020-02-02] MEDS ORDERED: DILT-36 PO (12:34)
[2020-02-02] MEDS ORDERED: METO50TA17 PO (12:34)
[2020-02-02] MEDS ORDERED: RIVA15TA PO (12:34)
[2020-02-02] MEDS ORDERED: methylPREDNISolone sod succ 125mg/2ml vial IV ONE (12:50)
[2020-02-02] MEDS ORDERED: magnesium hydroxide 30ml (MOM) UD suspension PO PRN (12:55)
[2020-02-02] MEDS ORDERED: ondansetron/PF 4mg/2ml inj IV PRN (12:55)
[2020-02-02] MEDS ORDERED: HYDROcodone/acetaminophen 10/325mg tab PO PRN (12:55)
[2020-02-02] MEDS ORDERED: acetaminophen 325mg tablet PO PRN ×2 (12:55)
[2020-02-02] MEDS ORDERED: mag hydrox/Alum hydrox/simeth 30ml oral suspension PO PRN (12:55)
[2020-02-02] MEDS ORDERED: morphine 2 MG/ML inj. syringe IV PRN ×2 (12:55)
[2020-02-02] MEDS: amiodarone/D5 360MG/200ML BAG 200 ML IV SCH ×2 (13:20→19:34)
[2020-02-02 14:30] LABS: ABG BASE EXCESS 4.2 mmol/L (-2.0-2.0); ABG HCO3 28.1 mmol/L (22.0-26.0); ABG PCO2 (T) 39.2 mmHg (35.0-48.0); ABG PO2 (T) 70.9 mmHg (75.0-100.0); ALLEN'S TEST POSITIVE; FCOHb 0.8 % (0.0-3.9); FMetHb 0.1 % (0.0-1.5); FO2Hb 94.1 % (94-97); TOTAL HEMOGLOBIN 12.6 G/dl (14.0-18.0)
[2020-02-02] MEDS: ipratropium/albuterol 3ml nebule NEB SCH ×3 (15:59→23:10)
[2020-02-02] MEDS: methylPREDNISolone sod succ 125mg/2ml vial IV SCH ×2 (16:23→23:47)
[2020-02-02 18:00] VITALS: BP 137/78
[2020-02-02] MEDS: rivaroxaban 15mg tablet PO SCH (18:00)
--- NOTE | 2020-02-02 18:06 | NUR ---
Received report from Lisa DALE. Assumed care. 2 RN skin check completed. MRSA swab taken. Pictures of wounds in chart. Mobile monitor is not working, switched out mobile and landline. Needing to change to a tele monitor for now. Pt. is on amio gtt running at 33 ml's/hr (1mg). HR 121, sp02 96% on Cpap 60% fi02. RR 32. Pt. in good spirits. Will report off to NOC shift.
--- NOTE | 2020-02-02 18:45 | NUR ---
Patient in room PCU 3009. I have received report from Willow DALE and had the opportunity to ask questions and assume patient care.
[2020-02-02 20:00] VITALS: BP 153/64
[2020-02-02] MEDS: metoprolol tartrate 50mg tablet PO SCH (20:14)
[2020-02-02] MEDS: piperacillin/tazo 4.5gm/100ml 100 ML IV SCH (21:44)
[2020-02-02 22:00] VITALS: BP_SYST 106; BP_SYST 137; BP_DIAS 71; BP_DIAS 78
[2020-02-03] VITALS (10 sets, daily range): BP systolic 100–131; BP diastolic 68–83
[2020-02-03] MEDS: amiodarone/D5 360MG/200ML BAG 200 ML IV SCH ×4 (00:50→16:05)
[2020-02-03] MEDS: ipratropium/albuterol 3ml nebule NEB SCH ×6 (03:11→23:25)
--- NOTE | 2020-02-03 06:02 | NUR ---
Orientee documentation: I have reviewed and agree with all interventions, assessments performed and documented by Trever DALE. [place] Medication Administration: For this medication-pass time frame, all medication were reviewed, dispensed, administered and documented per hospital policy by Trever DALE.
--- NOTE | 2020-02-03 06:13 | NUR ---
Patient in room PCU 3009. I have received report from Unique DALE and Trever DALE and had the opportunity to ask questions and assume patient care.
--- NOTE | 2020-02-03 06:23 | NUR ---
Problems reprioritized. Patient report given, questions answered & plan of care reviewed with Willow DALE.
[2020-02-03] MEDS: vitamin B comp w/Vit. C tab 1 TAB TABLET PO SCH (07:43)
[2020-02-03] MEDS: multivitamins, therapeutics tablet PO SCH (07:44)
[2020-02-03] MEDS: diltiazem CD 180mg cap (once-daily) PO SCH (07:45)
[2020-02-03] MEDS: metoprolol tartrate 50mg tablet PO SCH ×2 (07:45→20:50)
[2020-02-03] MEDS: rivaroxaban 15mg tablet PO SCH ×2 (07:45→07:51)
[2020-02-03] MEDS: methylPREDNISolone sod succ 125mg/2ml vial IV SCH ×3 (07:46→16:05)
[2020-02-03] MEDS: ascorbic acid 500mg tablet PO SCH (07:46)
[2020-02-03] MEDS: pantoprazole 40mg Tablet.DR PO SCH (07:51)
[2020-02-03] MEDS: piperacillin/tazo 4.5gm/100ml 100 ML IV SCH ×2 (07:51→20:50)
[2020-02-03] MEDS ORDERED: OMEGA PO SCH (08:00)
[2020-02-03] MEDS ORDERED: FATTY ACIDS PO SCH (08:00)
[2020-02-03] MEDS ORDERED: FISH OIL PO SCH (08:00)
[2020-02-03] MEDS ORDERED: pantoprazole 40mg Tablet.DR PO SCH (08:00)
[2020-02-03 08:20] LABS: BASOPHILS % (AUTO) 0.5 % (0-1); EOSINOPHILS % (AUTO) 0 % (0-6); HEMATOCRIT 37.6 % (42.0-52.0); HEMOGLOBIN 12.5 g/dl (14.0-17.9); LYMPHOCYTES # (AUTO) 0.6 X10'3 (1.1-4.8); LYMPHOCYTES % (AUTO) 7.3 % (21-51); MEAN CORPUSCULAR HEMOGLOBIN 30.4 PG (27.0-31.0); MEAN CORPUSCULAR HGB CONC 33.4 g/dL (33.0-36.5); MEAN CORPUSCULAR VOLUME 91.1 FL (78-98); MONOCYTES # (AUTO) 0.2 X10'3 (0-0.9); MONOCYTES % (AUTO) 2.8 % (2-12); NEUTROPHILS % (AUTO) 89.4 % (42-75); PLATELET COUNT 273 X10'3 (140-440); RED BLOOD COUNT 4.13 X10'6 (4.70-6.10); RED CELL DISTRIBUTION WIDTH 15.4 % (11.5-14.5); WHITE BLOOD COUNT 7.9 X10'3 (4.5-11.0)
[2020-02-03 08:27] LABS: ALANINE AMINOTRANSFERASE 48 U/L (12-78); ALBUMIN 2.5 G/DL (3.4-5.0); ALBUMIN/GLOBULIN RATIO 0.6 (1.1-1.5); ALKALINE PHOSPHATASE 69 IU/L (46-116); ANION GAP 9 (8-16); ASPARTATE AMINO TRANSFERASE 23 U/L (10-37); BILIRUBIN,TOTAL 0.6 MG/DL (0.1-1.0); BLOOD UREA NITROGEN 20 MG/DL (7-18); BUN/CREATININE RATIO 16.8 (5.4-32.0); CALCIUM 8.7 MG/DL (8.5-10.1); CHLORIDE 100 MMOL/L (99-107); CREATININE 1.19 MG/DL (0.60-1.10); GLUCOSE 158 MG/DL (70-104); POTASSIUM 4.1 MMOL/L (3.5-5.1); SODIUM 137 MMOL/L (135-145); TOTAL CARBON DIOXIDE 27.6 MMOL/L (24-32); eGFR 64 ML/MIN
[2020-02-03] MEDS ORDERED: ondansetron 4mg rapidly disintigrating tab PO PRN (11:05)
--- NOTE | 2020-02-03 12:51 | NUR ---
Dr. Gan aware of HR trends, reviewed EKG. Noted orders to increase amiodarone back to the 1mg (33 ml/min)
[2020-02-03 13:00] LABS: PLATELET ESTIMATE NORMAL; TOTAL CELLS COUNTED 100
--- NOTE | 2020-02-03 13:23 | NUR ---
RECOMMEND: 1. Daily bathing with no rinse skin cleanser. 2. Cream/Lotion to be applied to skin after bathing. 3. Cris care Q shift and prn soiling followed by with Barrier Cream. 4. Turn patient Q 1-2 hrs and reposition with pillows. 5. Float heels to offload pressure.
[2020-02-03] MEDS ORDERED: digoxin 250mcg/ml 2ml ampule IV STA (16:19)
--- NOTE | 2020-02-03 17:31 | NUR ---
Per Dr. Gan, decrease amiodarone to 0.5 mg/min 17 mL's/hr. HR trending 110-117's.
--- NOTE | 2020-02-03 18:18 | NUR ---
Problems reprioritized. Patient report given, questions answered & plan of care reviewed with Arabella DALE.
--- NOTE | 2020-02-03 18:33 | NUR ---
Patient in room PCU 3009. I have received report from Willow DALE and had the opportunity to ask questions and assume patient care.
[2020-02-03] MEDS: lactobacillus rhamnosus 10,000 MMU CELLS/CAPSULE PO SCH (20:50)
[2020-02-03] MEDS: digoxin 250mcg/ml 2ml ampule IV SCH (22:33)
[2020-02-04] VITALS (12 sets, daily range): BP systolic 93–121; BP diastolic 63–82
[2020-02-04] MEDS: methylPREDNISolone sod succ 125mg/2ml vial IV SCH ×3 (00:04→17:24)
[2020-02-04] MEDS: amiodarone/D5 360MG/200ML BAG 200 ML IV SCH ×4 (00:04→14:27)
[2020-02-04] MEDS: ipratropium/albuterol 3ml nebule NEB SCH ×6 (03:05→23:26)
[2020-02-04] MEDS: digoxin 250mcg/ml 2ml ampule IV SCH ×3 (03:23→14:23)
--- NOTE | 2020-02-04 06:16 | NUR ---
Problems reprioritized. Patient report given, questions answered & plan of care reviewed with Jeannette DALE.
--- NOTE | 2020-02-04 06:37 | NUR ---
Patient in room PCU 3009. I have received report from Unique DALE and had the opportunity to ask questions and assume patient care.
[2020-02-04 07:20] LABS: BASOPHILS % (AUTO) 0.3 % (0-1); EOSINOPHILS % (AUTO) 0 % (0-6); HEMATOCRIT 34.6 % (42.0-52.0); HEMOGLOBIN 11.8 g/dl (14.0-17.9); LYMPHOCYTES # (AUTO) 0.3 X10'3 (1.1-4.8); LYMPHOCYTES % (AUTO) 3.8 % (21-51); MEAN CORPUSCULAR HEMOGLOBIN 30.7 PG (27.0-31.0); MEAN CORPUSCULAR VOLUME 90.4 FL (78-98); MEAN PLATELET VOLUME 6.9 FL (7.4-10.4); MONOCYTES # (AUTO) 0.4 X10'3 (0-0.9); MONOCYTES % (AUTO) 4.6 % (2-12); NEUTROPHILS # (AUTO) 8.3 X10'3 (1.8-7.7); NEUTROPHILS % (AUTO) 91.3 % (42-75); PLATELET COUNT 272 X10'3 (140-440); RED BLOOD COUNT 3.83 X10'6 (4.70-6.10); RED CELL DISTRIBUTION WIDTH 15.1 % (11.5-14.5)
[2020-02-04 07:25] LABS: D-DIMER 0.55 MG/L FEU (0-0.50)
[2020-02-04 08:27] LABS: ALANINE AMINOTRANSFERASE 59 U/L (12-78); ALBUMIN 2.4 G/DL (3.4-5.0); ALBUMIN/GLOBULIN RATIO 0.6 (1.1-1.5); ALKALINE PHOSPHATASE 66 IU/L (46-116); ANION GAP 8 (8-16); ASPARTATE AMINO TRANSFERASE 22 U/L (10-37); BILIRUBIN,TOTAL 0.6 MG/DL (0.1-1.0); BLOOD UREA NITROGEN 24 MG/DL (7-18); BUN/CREATININE RATIO 29.6 (5.4-32.0); C-REACTIVE PROTEIN 5.64 MG/DL (0.0-0.5); CALCIUM 8.4 MG/DL (8.5-10.1); CHLORIDE 100 MMOL/L (99-107); CREATININE 0.81 MG/DL (0.60-1.10); GLUCOSE 133 MG/DL (70-104); POTASSIUM 4.7 MMOL/L (3.5-5.1); SODIUM 136 MMOL/L (135-145); TOTAL CARBON DIOXIDE 28.5 MMOL/L (24-32); TOTAL PROTEIN 6.4 G/DL (6.4-8.2); eGFR > 90 ML/MIN
[2020-02-04] MEDS: rivaroxaban 15mg tablet PO SCH ×2 (08:50→17:24)
[2020-02-04] MEDS: piperacillin/tazo 4.5gm/100ml 100 ML IV SCH (08:52)
[2020-02-04] MEDS: pantoprazole 40mg Tablet.DR PO SCH (08:53)
[2020-02-04] MEDS: multivitamins, therapeutics tablet PO SCH (08:53)
[2020-02-04] MEDS: metoprolol tartrate 50mg tablet PO SCH ×2 (08:53→19:34)
[2020-02-04] MEDS: diltiazem CD 180mg cap (once-daily) PO SCH (08:53)
[2020-02-04] MEDS: vitamin B comp w/Vit. C tab 1 TAB TABLET PO SCH (08:53)
[2020-02-04] MEDS: ascorbic acid 500mg tablet PO SCH (08:53)
[2020-02-04] MEDS: lactobacillus rhamnosus 10,000 MMU CELLS/CAPSULE PO SCH ×2 (08:53→19:34)
--- NOTE | 2020-02-04 16:35 | NUR ---
Spoke with Dr. Gan. Instructed to trial the patient with the amio stopped for a couple hours and if the patient's heart rate goes up to 130s then re-start the amio gtt, at the dose it was at.
[2020-02-04] MEDS ORDERED: polyvinyl alcohol ophthalmic drops 15ml bottle EACHEYE PRN (18:25)
--- NOTE | 2020-02-04 18:30 | NUR ---
Patient in room PCU 3009. I have received report from Jeannette Gomez RN and had the opportunity to ask questions and assume patient care.
--- NOTE | 2020-02-04 18:36 | NUR ---
Problems reprioritized. Patient report given, questions answered & plan of care reviewed with Jeannette Salgado RN.
[2020-02-04] MEDS ORDERED: PEG 400/HYPROMELLOSE/GLYCERIN 15ml bottle EACHEYE PRN (18:40)
[2020-02-05] MEDS: methylPREDNISolone sod succ 125mg/2ml vial IV SCH ×3 (00:19→17:10)
[2020-02-05 02:00] VITALS: BP 119/73
[2020-02-05] MEDS: HYDROcodone/acetaminophen 5mg/325mg tablet PO PRN ×2 (03:05→08:50)
[2020-02-05] MEDS: ipratropium/albuterol 3ml nebule NEB SCH ×2 (03:36→07:13)
[2020-02-05] MEDS: amiodarone/D5 360MG/200ML BAG 200 ML IV SCH ×5 (04:47→17:14)
--- NOTE | 2020-02-05 06:16 | NUR ---
Problems reprioritized. Patient report given, questions answered & plan of care reviewed with Jeannette Gomez RN.
[2020-02-05 06:49] VITALS: BP 90/67
[2020-02-05 07:54] LABS: BASOPHILS % (AUTO) 0.2 % (0-1); EOSINOPHILS % (AUTO) 0 % (0-6); HEMATOCRIT 31.9 % (42.0-52.0); HEMOGLOBIN 10.8 g/dl (14.0-17.9); LYMPHOCYTES # (AUTO) 0.4 X10'3 (1.1-4.8); LYMPHOCYTES % (AUTO) 4.3 % (21-51); MEAN CORPUSCULAR HEMOGLOBIN 30.5 PG (27.0-31.0); MEAN CORPUSCULAR VOLUME 89.8 FL (78-98); MEAN PLATELET VOLUME 6.9 FL (7.4-10.4); MONOCYTES # (AUTO) 0.4 X10'3 (0-0.9); MONOCYTES % (AUTO) 4.6 % (2-12); NEUTROPHILS # (AUTO) 7.6 X10'3 (1.8-7.7); NEUTROPHILS % (AUTO) 90.9 % (42-75); PLATELET COUNT 262 X10'3 (140-440); RED BLOOD COUNT 3.55 X10'6 (4.70-6.10); RED CELL DISTRIBUTION WIDTH 15.3 % (11.5-14.5); WHITE BLOOD COUNT 8.4 X10'3 (4.5-11.0)
[2020-02-05] MEDS ORDERED: digoxin 250mcg (0.25mg) tablet PO SCH (08:00)
[2020-02-05 08:11] LABS: ALANINE AMINOTRANSFERASE 58 U/L (12-78); ALBUMIN 2.3 G/DL (3.4-5.0); ALBUMIN/GLOBULIN RATIO 0.6 (1.1-1.5); ALKALINE PHOSPHATASE 73 IU/L (46-116); ANION GAP 5 (8-16); ASPARTATE AMINO TRANSFERASE 16 U/L (10-37); BILIRUBIN,TOTAL 0.4 MG/DL (0.1-1.0); BLOOD UREA NITROGEN 28 MG/DL (7-18); BUN/CREATININE RATIO 31.8 (5.4-32.0); C-REACTIVE PROTEIN 2.42 MG/DL (0.0-0.5); CALCIUM 8.2 MG/DL (8.5-10.1); CHLORIDE 102 MMOL/L (99-107); CREATININE 0.88 MG/DL (0.60-1.10); GLUCOSE 129 MG/DL (70-104); POTASSIUM 4.4 MMOL/L (3.5-5.1); SODIUM 137 MMOL/L (135-145); TOTAL CARBON DIOXIDE 29.7 MMOL/L (24-32); eGFR > 90 ML/MIN
[2020-02-05] MEDS: lactobacillus rhamnosus 10,000 MMU CELLS/CAPSULE PO SCH ×2 (08:34→20:26)
[2020-02-05] MEDS: rivaroxaban 15mg tablet PO SCH ×2 (08:34→17:10)
[2020-02-05] MEDS: vitamin B comp w/Vit. C tab 1 TAB TABLET PO SCH (08:35)
[2020-02-05] MEDS: metoprolol tartrate 50mg tablet PO SCH ×2 (08:35→20:27)
[2020-02-05] MEDS: digoxin 250mcg (0.25mg) tablet PO SCH (08:35)
[2020-02-05] MEDS: multivitamins, therapeutics tablet PO SCH (08:35)
[2020-02-05] MEDS: pantoprazole 40mg Tablet.DR PO SCH (08:35)
[2020-02-05] MEDS: ascorbic acid 500mg tablet PO SCH (08:36)
[2020-02-05 11:00] VITALS: BP 116/62
[2020-02-05] MEDS: LORazepam 0.5 MG tablet PO PRN (12:42)
[2020-02-05 15:00] VITALS: BP 105/62
[2020-02-05 18:00] VITALS: BP 102/81
--- NOTE | 2020-02-05 18:20 | NUR ---
Problems reprioritized. Patient report given, questions answered & plan of care reviewed with Jeannette Salgado RN.
--- NOTE | 2020-02-05 19:29 | NUR ---
Patient in room PCU 3009. I have received report from Jeannette Gomez RN and had the opportunity to ask questions and assume patient care.
[2020-02-05 22:00] VITALS: BP 105/77
[2020-02-05] MEDS: LORazepam 1 MG tablet PO PRN (22:34)
[2020-02-06] VITALS (8 sets, daily range): BP systolic 85–126; BP diastolic 51–86
[2020-02-06] MEDS: methylPREDNISolone sod succ 125mg/2ml vial IV SCH ×4 (00:02→23:46)
--- NOTE | 2020-02-06 06:34 | NUR ---
Problems reprioritized. Patient report given, questions answered & plan of care reviewed with SUYAPA Chopra.
[2020-02-06 07:26] LABS: BASOPHILS % (AUTO) 0 % (0-1); EOSINOPHILS % (AUTO) 0 % (0-6); HEMOGLOBIN 11.8 g/dl (14.0-17.9); LYMPHOCYTES # (AUTO) 0.5 X10'3 (1.1-4.8); LYMPHOCYTES % (AUTO) 4.8 % (21-51); MEAN CORPUSCULAR HEMOGLOBIN 30.6 PG (27.0-31.0); MEAN CORPUSCULAR HGB CONC 33.9 g/dL (33.0-36.5); MEAN CORPUSCULAR VOLUME 90.5 FL (78-98); MEAN PLATELET VOLUME 6.9 FL (7.4-10.4); MONOCYTES # (AUTO) 0.5 X10'3 (0-0.9); MONOCYTES % (AUTO) 4.8 % (2-12); NEUTROPHILS # (AUTO) 9.8 X10'3 (1.8-7.7); NEUTROPHILS % (AUTO) 90.4 % (42-75); PLATELET COUNT 342 X10'3 (140-440); RED BLOOD COUNT 3.86 X10'6 (4.70-6.10); RED CELL DISTRIBUTION WIDTH 15.1 % (11.5-14.5); WHITE BLOOD COUNT 10.9 X10'3 (4.5-11.0)
[2020-02-06 07:56] LABS: ALANINE AMINOTRANSFERASE 169 U/L (12-78); ALBUMIN 2.6 G/DL (3.4-5.0); ALBUMIN/GLOBULIN RATIO 0.6 (1.1-1.5); ALKALINE PHOSPHATASE 77 IU/L (46-116); ANION GAP 11 (8-16); ASPARTATE AMINO TRANSFERASE 64 U/L (10-37); BILIRUBIN,TOTAL 0.5 MG/DL (0.1-1.0); BLOOD UREA NITROGEN 29 MG/DL (7-18); BUN/CREATININE RATIO 29.9 (5.4-32.0); C-REACTIVE PROTEIN 1.43 MG/DL (0.0-0.5); CALCIUM 8.7 MG/DL (8.5-10.1); CHLORIDE 99 MMOL/L (99-107); CREATININE 0.97 MG/DL (0.60-1.10); GLUCOSE 113 MG/DL (70-104); SODIUM 136 MMOL/L (135-145); TOTAL CARBON DIOXIDE 26.3 MMOL/L (24-32); TOTAL PROTEIN 6.7 G/DL (6.4-8.2); eGFR 81 ML/MIN
[2020-02-06] MEDS: ascorbic acid 500mg tablet PO SCH (07:56)
[2020-02-06 07:57] LABS: POTASSIUM 4.6 MMOL/L (3.5-5.1)
[2020-02-06] MEDS: rivaroxaban 15mg tablet PO SCH ×2 (07:57→16:39)
[2020-02-06] MEDS: multivitamins, therapeutics tablet PO SCH (07:57)
[2020-02-06] MEDS: metoprolol tartrate 50mg tablet PO SCH ×2 (07:57→19:18)
[2020-02-06] MEDS: pantoprazole 40mg Tablet.DR PO SCH (07:58)
[2020-02-06] MEDS: lactobacillus rhamnosus 10,000 MMU CELLS/CAPSULE PO SCH ×2 (07:58→19:17)
[2020-02-06] MEDS: vitamin B comp w/Vit. C tab 1 TAB TABLET PO SCH (07:58)
[2020-02-06 08:06] LABS: ANISOCYTOSIS 1+; GIANT PLATELET FEW; PLATELET ESTIMATE NORMAL; TOTAL CELLS COUNTED 100
[2020-02-06] MEDS: digoxin 250mcg (0.25mg) tablet PO SCH (08:13)
[2020-02-06] MEDS: amiodarone/D5 360MG/200ML BAG 200 ML IV SCH (15:59)
--- NOTE | 2020-02-06 18:20 | NUR ---
Problems reprioritized. Patient report given, questions answered & plan of care reviewed with SUYAPA Smith.
[2020-02-06] MEDS: LORazepam 1 MG tablet PO PRN (23:47)
[2020-02-07] VITALS (7 sets, daily range): BP systolic 105–134; BP diastolic 58–83
--- NOTE | 2020-02-07 03:02 | NUR ---
Patient in room PCU 3009. I have received report from TEOFILO DALE and had the opportunity to ask questions and assume patient care.
--- NOTE | 2020-02-07 03:05 | NUR ---
AGREE WITH FORMER ASSESSMENT
--- NOTE | 2020-02-07 06:11 | NUR ---
Patient in room PCU 3009. I have received report from SUYAPA Smith and had the opportunity to ask questions and assume patient care.
--- NOTE | 2020-02-07 06:11 | NUR ---
Problems reprioritized. Patient report given, questions answered & plan of care reviewed with Kyesha DALE.
[2020-02-07 06:22] LABS: D-DIMER 0.86 MG/L FEU (0-0.50)
[2020-02-07 06:26] LABS: BASOPHILS % (AUTO) 0.3 % (0-1); EOSINOPHILS % (AUTO) 0 % (0-6); HEMOGLOBIN 11.7 g/dl (14.0-17.9); LYMPHOCYTES # (AUTO) 0.6 X10'3 (1.1-4.8); LYMPHOCYTES % (AUTO) 5.5 % (21-51); MEAN CORPUSCULAR HEMOGLOBIN 31.2 PG (27.0-31.0); MEAN CORPUSCULAR HGB CONC 34.6 g/dL (33.0-36.5); MEAN CORPUSCULAR VOLUME 90.2 FL (78-98); MONOCYTES # (AUTO) 0.4 X10'3 (0-0.9); NEUTROPHILS # (AUTO) 9.3 X10'3 (1.8-7.7); NEUTROPHILS % (AUTO) 90.2 % (42-75); PLATELET COUNT 306 X10'3 (140-440); RED BLOOD COUNT 3.77 X10'6 (4.70-6.10); WHITE BLOOD COUNT 10.3 X10'3 (4.5-11.0)
[2020-02-07 06:29] LABS: ALANINE AMINOTRANSFERASE 187 U/L (12-78); ALBUMIN 2.6 G/DL (3.4-5.0); ALBUMIN/GLOBULIN RATIO 0.7 (1.1-1.5); ALKALINE PHOSPHATASE 83 IU/L (46-116); ANION GAP 5 (8-16); ASPARTATE AMINO TRANSFERASE 39 U/L (10-37); BILIRUBIN,TOTAL 0.5 MG/DL (0.1-1.0); BLOOD UREA NITROGEN 28 MG/DL (7-18); BUN/CREATININE RATIO 29.5 (5.4-32.0); C-REACTIVE PROTEIN 0.74 MG/DL (0.0-0.5); CALCIUM 8.5 MG/DL (8.5-10.1); CHLORIDE 102 MMOL/L (99-107); CREATININE 0.95 MG/DL (0.60-1.10); GLUCOSE 126 MG/DL (70-104); POTASSIUM 4.9 MMOL/L (3.5-5.1); SODIUM 136 MMOL/L (135-145); TOTAL CARBON DIOXIDE 29.1 MMOL/L (24-32); TOTAL PROTEIN 6.2 G/DL (6.4-8.2); eGFR 83 ML/MIN
[2020-02-07 07:16] LABS: ANISOCYTOSIS 1+; PLATELET ESTIMATE NORMAL; TOTAL CELLS COUNTED 100
[2020-02-07] MEDS: pantoprazole 40mg Tablet.DR PO SCH (07:34)
[2020-02-07] MEDS: multivitamins, therapeutics tablet PO SCH (07:34)
[2020-02-07] MEDS: rivaroxaban 15mg tablet PO SCH ×2 (07:34→17:02)
[2020-02-07] MEDS: lactobacillus rhamnosus 10,000 MMU CELLS/CAPSULE PO SCH ×2 (07:34→19:03)
[2020-02-07] MEDS: ascorbic acid 500mg tablet PO SCH (07:35)
[2020-02-07] MEDS: digoxin 250mcg (0.25mg) tablet PO SCH (07:35)
[2020-02-07] MEDS: metoprolol tartrate 50mg tablet PO SCH ×2 (07:35→19:03)
[2020-02-07] MEDS: vitamin B comp w/Vit. C tab 1 TAB TABLET PO SCH (07:35)
[2020-02-07] MEDS: methylPREDNISolone sod succ 125mg/2ml vial IV SCH ×3 (07:36→23:52)
[2020-02-07] MEDS ORDERED: digoxin 125mcg (0.125mg) tablet PO ONE (08:20)
--- NOTE | 2020-02-07 12:01 | NUR ---
100% PO intake. No nutrition problem. Recommend: 1. continue heart healthy diet 2. bowel care as needed 3. weights per rx Addendum: 02/07/20 at [address] Amended: Links added.
[2020-02-07] MEDS: LORazepam 0.5 MG tablet PO PRN ×2 (17:02→23:52)
--- NOTE | 2020-02-07 18:20 | NUR ---
Problems reprioritized. Patient report given, questions answered & plan of care reviewed with SUYAPA Carmona.
[2020-02-08 02:00] VITALS: BP 114/80
--- NOTE | 2020-02-08 06:21 | NUR ---
Problems reprioritized. Patient report given, questions answered & plan of care reviewed with Jeannette RN and alfonsoee RN.
[2020-02-08 07:00] VITALS: BP 127/79
[2020-02-08] MEDS: methylPREDNISolone sod succ 125mg/2ml vial IV SCH (08:59)
[2020-02-08] MEDS: rivaroxaban 15mg tablet PO SCH ×2 (08:59→17:04)
[2020-02-08] MEDS: lactobacillus rhamnosus 10,000 MMU CELLS/CAPSULE PO SCH ×2 (08:59→20:15)
[2020-02-08] MEDS: metoprolol tartrate 50mg tablet PO SCH ×2 (09:00→20:16)
[2020-02-08] MEDS: vitamin B comp w/Vit. C tab 1 TAB TABLET PO SCH (09:00)
[2020-02-08] MEDS: ascorbic acid 500mg tablet PO SCH (09:00)
[2020-02-08] MEDS: pantoprazole 40mg Tablet.DR PO SCH (09:00)
[2020-02-08] MEDS: multivitamins, therapeutics tablet PO SCH (09:00)
[2020-02-08] MEDS: digoxin 250mcg (0.25mg) tablet PO SCH (09:03)
[2020-02-08 11:00] VITALS: BP 115/77
[2020-02-08] MEDS: furosemide 20 MG/2 ML vial IV SCH ×2 (11:14→20:15)
[2020-02-08] MEDS: LORazepam 0.5 MG tablet PO PRN ×2 (17:04→23:36)
--- NOTE | 2020-02-08 18:30 | NUR ---
Patient in room PCU 3009. I have received report from SAUL and had the opportunity to ask questions and assume patient care.
--- NOTE | 2020-02-08 18:30 | NUR ---
Problems reprioritized. Patient report given, questions answered & plan of care reviewed with Therese DALE.
[2020-02-08 19:00] VITALS: BP 114/68
[2020-02-08] MEDS: dexamethasone inj 6 MG in normal saline 100ml IV soln 100 ML IV SCH (20:10)
[2020-02-08 23:00] VITALS: BP 112/57
[2020-02-09] VITALS (7 sets, daily range): BP systolic 96–127; BP diastolic 53–77
--- NOTE | 2020-02-09 06:36 | NUR ---
Problems reprioritized. Patient report given, questions answered & plan of care reviewed with
--- NOTE | 2020-02-09 06:44 | NUR ---
Patient in room PCU 3009. I have received report from SUYAPA GHOSH and had the opportunity to ask questions and assume patient care.
[2020-02-09] MEDS: rivaroxaban 15mg tablet PO SCH ×2 (09:15→17:47)
[2020-02-09] MEDS: lactobacillus rhamnosus 10,000 MMU CELLS/CAPSULE PO SCH ×2 (09:16→19:49)
[2020-02-09] MEDS: digoxin 250mcg (0.25mg) tablet PO SCH (09:17)
[2020-02-09] MEDS: vitamin B comp w/Vit. C tab 1 TAB TABLET PO SCH (09:18)
[2020-02-09] MEDS: pantoprazole 40mg Tablet.DR PO SCH (09:18)
[2020-02-09] MEDS: multivitamins, therapeutics tablet PO SCH (09:18)
[2020-02-09] MEDS: metoprolol tartrate 50mg tablet PO SCH ×2 (09:18→19:50)
[2020-02-09] MEDS: ascorbic acid 500mg tablet PO SCH (09:19)
[2020-02-09] MEDS: furosemide 20 MG/2 ML vial IV SCH ×2 (09:19→20:00)
[2020-02-09] MEDS: dexamethasone inj 6 MG in normal saline 100ml IV soln 100 ML IV SCH ×2 (09:24→19:49)
[2020-02-09] MEDS ORDERED: metoprolol tartrate 50mg tablet PO ONE (09:55)
--- NOTE | 2020-02-09 18:46 | NUR ---
Problems reprioritized. Patient report given, questions answered & plan of care reviewed with SUYAPA Silverman.
--- NOTE | 2020-02-09 18:48 | NUR ---
Patient in room PCU 3012. I have received report from Tereza DALE and had the opportunity to ask questions and assume patient care.
[2020-02-10 02:00] VITALS: BP 123/73
--- NOTE | 2020-02-10 06:10 | NUR ---
Received report from Jie DALE, [facility] care.
--- NOTE | 2020-02-10 06:21 | NUR ---
Problems reprioritized. Patient report given, questions answered & plan of care reviewed with Maryanne DALE.
[2020-02-10 06:30] VITALS: BP 111/61
[2020-02-10] MEDS: rivaroxaban 15mg tablet PO SCH (07:57)
[2020-02-10] MEDS: vitamin B comp w/Vit. C tab 1 TAB TABLET PO SCH (07:58)
[2020-02-10] MEDS: metoprolol tartrate 50mg tablet PO SCH (07:58)
[2020-02-10] MEDS: ascorbic acid 500mg tablet PO SCH (07:58)
[2020-02-10] MEDS: pantoprazole 40mg Tablet.DR PO SCH (07:58)
[2020-02-10] MEDS: lactobacillus rhamnosus 10,000 MMU CELLS/CAPSULE PO SCH (07:58)
[2020-02-10] MEDS: multivitamins, therapeutics tablet PO SCH (07:58)
[2020-02-10] MEDS: digoxin 250mcg (0.25mg) tablet PO SCH (08:03)
[2020-02-10] MEDS: dexamethasone inj 6 MG in normal saline 100ml IV soln 100 ML IV SCH (08:06)
[2020-02-10] MEDS: furosemide 20 MG/2 ML vial IV SCH (08:06)
[2020-02-10 08:51] LABS: ALANINE AMINOTRANSFERASE 127 U/L (12-78); ALBUMIN 2.9 G/DL (3.4-5.0); ALBUMIN/GLOBULIN RATIO 0.8 (1.1-1.5); ALKALINE PHOSPHATASE 94 IU/L (46-116); ANION GAP 7 (8-16); ASPARTATE AMINO TRANSFERASE 17 U/L (10-37); BASOPHILS # (AUTO) 0.1 X10'3 (0-0.2); BASOPHILS % (AUTO) 0.4 % (0-1); BILIRUBIN,TOTAL 0.5 MG/DL (0.1-1.0); BLOOD UREA NITROGEN 33 MG/DL (7-18); BUN/CREATININE RATIO 31.7 (5.4-32.0); CHLORIDE 97 MMOL/L (99-107); CREATININE 1.04 MG/DL (0.60-1.10); EOSINOPHILS % (AUTO) 0.1 % (0-6); HEMATOCRIT 37.5 % (42.0-52.0); HEMOGLOBIN 12.5 g/dl (14.0-17.9); LYMPHOCYTES % (AUTO) 7.1 % (21-51); MEAN CORPUSCULAR HEMOGLOBIN 29.9 PG (27.0-31.0); MEAN CORPUSCULAR HGB CONC 33.4 g/dL (33.0-36.5); MEAN CORPUSCULAR VOLUME 89.5 FL (78-98); MEAN PLATELET VOLUME 6.9 FL (7.4-10.4); MONOCYTES # (AUTO) 0.5 X10'3 (0-0.9); MONOCYTES % (AUTO) 3.6 % (2-12); NEUTROPHILS # (AUTO) 12.4 X10'3 (1.8-7.7); NEUTROPHILS % (AUTO) 88.8 % (42-75); PLATELET COUNT 319 X10'3 (140-440); POTASSIUM 4.3 MMOL/L (3.5-5.1); RED BLOOD COUNT 4.19 X10'6 (4.70-6.10); RED CELL DISTRIBUTION WIDTH 15.4 % (11.5-14.5); SODIUM 133 MMOL/L (135-145); TOTAL CARBON DIOXIDE 28.7 MMOL/L (24-32); TOTAL PROTEIN 6.4 G/DL (6.4-8.2); WHITE BLOOD COUNT 13.9 X10'3 (4.5-11.0); eGFR 75 ML/MIN
[2020-02-10 08:52] LABS: GLUCOSE 162 MG/DL (70-104)
[2020-02-10 09:17] LABS: TOTAL CELLS COUNTED 100
[2020-02-10 09:24] LABS: PLATELET ESTIMATE NORMAL
[2020-02-10] MEDS ORDERED: DEC4T PO ×2 (09:40)
[2020-02-10] MEDS ORDERED: FURO40TA4 PO (09:40)
[2020-02-10 11:00] VITALS: BP 108/58
[2020-02-10 12:00] VITALS: BP 115/75
--- NOTE | 2020-02-11 16:15 | NUR ---
CASE MANAGEMENT DISCHARGE FOLLOW UP: Spoke with pt via telephone. Pt reports that he is really feeling goof, currently sitting on porch enjoying the fresh air. States that level of SOB improving and that he is breathing better and getting good sleep. Currently wearing 4L of O2 and with O2 saturation in mid to high 90's. He states that if he maintains this saturation, he will titrate to 3L tomorrow. Denies fever, difficulty breathing. Verbalizes understanding of s/sx requiring further evaluation/emergent assistance. Pt verbalizes understanding of new/current/stopped prescriptions. Pt verbalizes compliance with MD discharge instructions. Pt states that the ophthalmic technician "did a very good job" and thoroughly explained MD instructions and medications to him, and neither he nor his fiancee have any questions at this time.
== END 2020-02-10 12:15 | disposition home or self-care (01) | DRG 189 ==
LOC: ER 08:36 → ED HOLD 12:53 → PCU 3S 17:44
PROVIDERS: ADMIT Family Medicine; ATTEND Internal Medicine
PROC: 5A09357 Assistance with Respiratory Ventilation, Less than 24 Consecutive Hours, Continuous Positive Airway Pressure (ICD-10-PCS; principal; 2020-02-02)
PROC: B32T1ZZ Computerized Tomography (CT Scan) of Left Pulmonary Artery using Low Osmolar Contrast (ICD-10-PCS; 2020-02-02)
PROC: B32S1ZZ Computerized Tomography (CT Scan) of Right Pulmonary Artery using Low Osmolar Contrast (ICD-10-PCS; 2020-02-02)
PROC: 5A09357 Assistance with Respiratory Ventilation, Less than 24 Consecutive Hours, Continuous Positive Airway Pressure (ICD-10-PCS; 2020-02-03)
PROC: 5A09357 Assistance with Respiratory Ventilation, Less than 24 Consecutive Hours, Continuous Positive Airway Pressure (ICD-10-PCS; 2020-02-04)
DX: J96.21 Acute and chronic respiratory failure with hypoxia (principal); N17.9 Acute kidney failure, unspecified; R74.01 Elevation of levels of liver transaminase levels; I11.0 Hypertensive heart disease with heart failure; I50.810 Right heart failure, unspecified; Z79.01 Long term (current) use of anticoagulants; Z79.899 Other long term (current) drug therapy; Z90.49 Acquired absence of other specified parts of digestive tract; I48.0 Paroxysmal atrial fibrillation; E66.9 Obesity, unspecified; I27.20 Pulmonary hypertension, unspecified; Z87.891 Personal history of nicotine dependence; I27.81 Cor pulmonale (chronic); Z68.35 Body mass index [BMI] 35.0-35.9, adult
CPT/HCPCS: 36415; 36600; 71045; 71275; 76937; 80053; 80162; 82803; 83605; 83735; 83880; 84145; 84439; 84443; 84484; 85007; 85018; 85025; 85379; 85610; 85730; 86140; 87040; 87070; 87081; 93005; 93306; 93308; 94640; 94660; 94664; 94668; 94760; 96365; 96375; 97110; 97116; 97161; 97530; 99285; G0378; J1100; J1160; J1940; J2543; J2930; J3490; Q9967

== ENCOUNTER 2020-02-22 07:53 | Inpatient (IN) | payer BC ==
[~2020-02-22] VITALS: Ht 185.4 cm; Wt 122.7 kg
[~2020-02-22 07:53] MED LIST changes: +DEC4T PO; +DILT-36 PO; -DILT180C66 PO; +FURO40TA4 PO; -METO50TA16 PO; +METO50TA17 PO; -PRED10TA23 PO; -RIVA20TA PO
[2020-02-22] MEDS ORDERED: diltiazem 5mg/ml 5ml inj. IV ONE (08:15)
[2020-02-22] MEDS ORDERED: LORazepam 2 mg/ml vial IV ONE (08:40)
[2020-02-22] MEDS ORDERED: iohexol 350MG/ML 100ml bottle IV ONE (08:49)
[2020-02-22 08:51] LABS: BASOPHILS # (AUTO) 0.1 X10'3 (0-0.2); EOSINOPHILS % (AUTO) 0.1 % (0-6); LYMPHOCYTES # (AUTO) 1.1 X10'3 (1.1-4.8)
[2020-02-22 08:53] LABS: BASOPHILS % (AUTO) 0.7 % (0-1); HEMATOCRIT 33.2 % (42.0-52.0); LYMPHOCYTES % (AUTO) 6.3 % (21-51); MEAN CORPUSCULAR HEMOGLOBIN 30.7 PG (27.0-31.0); MEAN CORPUSCULAR HGB CONC 33.2 g/dL (33.0-36.5); MEAN CORPUSCULAR VOLUME 92.5 FL (78-98); MONOCYTES # (AUTO) 0.7 X10'3 (0-0.9); NEUTROPHILS % (AUTO) 88.9 % (42-75); PLATELET COUNT 205 X10'3 (140-440); RED BLOOD COUNT 3.59 X10'6 (4.70-6.10); RED CELL DISTRIBUTION WIDTH 18.2 % (11.5-14.5); WHITE BLOOD COUNT 16.9 X10'3 (4.5-11.0)
[2020-02-22 09:12] LABS: ALANINE AMINOTRANSFERASE 169 U/L (12-78); ALKALINE PHOSPHATASE 115 IU/L (46-116); ANION GAP 11 (8-16); ASPARTATE AMINO TRANSFERASE 43 U/L (10-37); BILIRUBIN,TOTAL 0.5 MG/DL (0.1-1.0); BLOOD UREA NITROGEN 33 MG/DL (7-18); BUN/CREATININE RATIO 35.5 (5.4-32.0); CALCIUM 8.1 MG/DL (8.5-10.1); CHLORIDE 102 MMOL/L (99-107); CREATININE 0.93 MG/DL (0.60-1.10); GLUCOSE 158 MG/DL (70-104); POTASSIUM 4.4 MMOL/L (3.5-5.1); SODIUM 140 MMOL/L (135-145); TOTAL CARBON DIOXIDE 26.6 MMOL/L (24-32); eGFR 85 ML/MIN
[2020-02-22] MEDS ORDERED: normal saline 1000ml 1,000 ML IV ONE (09:20)
[2020-02-22 09:54] LABS: CLARITY,URINE CLEAR (Clear); COLOR,URINE YELLOW (Yellow); GLUCOSE, URINE NEGATIVE (Neg); LEUKOCYTE ESTERASE ,URINE NEGATIVE (Neg); NITRITES, URINE NEGATIVE (Neg); PROTEIN,URINE 30 mg/dl (Neg)
[2020-02-22 09:56] LABS: KETONES,URINE NEGATIVE (Neg); OCCULT BLOOD,URINE TRACE-LYSED (Neg)
[2020-02-22 09:58] LABS: UA COLLECTION TYPE VOIDED
[2020-02-22 09:58] LABS: NUCLEATED RED BLOOD CELLS 2 /100WBC (0-0); TOTAL CELLS COUNTED 100
[2020-02-22 10:01] LABS: BACTERIA,URINE NONE SEEN /HPF (Neg); MUCUS STRANDS NONE SEEN /LPF (Neg); RBC,URINE NONE SEEN /HPF (0-2); SQUAMOUS EPITHELIAL CELL,UR NONE SEEN /LPF (FEW); WBC,URINE 0-4 /HPF (0-4)
[2020-02-22 10:03] LABS: ANISOCYTOSIS 2+; PLATELET ESTIMATE NORMAL; POLYCHROMASIA 1+; STOMATOCYTES 1+
[2020-02-22] MEDS ORDERED: cefepime 1GM/NS ADD-VANTAGE 100 ML IV SCH (10:15)
[2020-02-22] MEDS ORDERED: acetaminophen 325mg tablet PO PRN ×2 (10:50)
[2020-02-22] MEDS ORDERED: HYDROcodone/acetaminophen 10/325mg tab PO PRN (10:50)
[2020-02-22] MEDS ORDERED: magnesium Cl slow-release 64mg tablet PO PRN (10:50)
[2020-02-22] MEDS ORDERED: magnesium 2GM in 50ml NS 50 ML IV PRN (10:50)
[2020-02-22] MEDS ORDERED: diphenhydrAMINE 25mg capsule PO PRN (10:50)
[2020-02-22] MEDS ORDERED: ondansetron/PF 4mg/2ml inj IV PRN (10:50)
[2020-02-22] MEDS ORDERED: bisacodyl 10mg suppository rectal RC PRN (10:50)
[2020-02-22] MEDS ORDERED: mag hydrox/Alum hydrox/simeth 30ml oral suspension PO PRN (10:50)
[2020-02-22] MEDS ORDERED: morphine 2 MG/ML inj. syringe IV PRN ×2 (10:50)
[2020-02-22] MEDS ORDERED: potassium Cl 20 mEq SR tablet PO PRN ×2 (10:50)
[2020-02-22] MEDS ORDERED: HYDROcodone/acetaminophen 5mg/325mg tablet PO PRN (10:50)
[2020-02-22] MEDS ORDERED: magnesium hydroxide 30ml (MOM) UD suspension PO PRN (10:50)
[2020-02-22] MEDS ORDERED: potassium Cl 40MEQ/1/2NS 520ml 520 ML IV PRN ×2 (10:50)
[2020-02-22] MEDS ORDERED: magnesium 4gm in 100ml NS 100 ML IV PRN (10:50)
[2020-02-22] MEDS ORDERED: acetaminophen 650mg rectal suppository RC PRN (10:50)
--- NOTE | 2020-02-22 10:50 | NUR ---
After coughing Sp02 dropped to 78% on 10L NC. Dr. Funk aware. Sputum culture obtained, blood tinged. RT at bedside to place pt on BiPAP.
--- NOTE | 2020-02-22 10:57 | NUR ---
Per Dr. Funk No ABG needed for BIPAP
[2020-02-22] MEDS: normal saline 1000ml 1,000 ML IV SCH (11:02)
[2020-02-22] MEDS: dexamethasone 4mg/ml inj IV SCH ×2 (11:02→22:24)
[2020-02-22] MEDS ORDERED: METO50TA16 PO (12:44)
[2020-02-22] MEDS ORDERED: VERA120T19 PO (12:44)
[2020-02-22] MEDS ORDERED: FURO-150 PO (12:44)
[2020-02-22] MEDS ORDERED: AMIO200T61 PO (12:44)
--- NOTE | 2020-02-22 15:00 | NUR ---
Nguyen bonilla in [facility] - 02/22/20 at 1523 by FIDEL Pt ambulated to bathroom unassisted
[2020-02-22] MEDS: K and/or MAG REPLACEMENT MC SCH (20:00)
--- NOTE | 2020-02-22 20:30 | NUR ---
PT IS ON THE FLOOR AT THIS TIME. ALERT AND ORIENTED. PT REQUEST TO BE ON NC INSTEAD OF BIPAP. RESPIRATORY CAME AND PT IS ON 6 L
--- NOTE | 2020-02-22 20:34 | NUR ---
O2 SAT AT THIS TIME 95 % WHEN RESPIRATORY. PT IS EATING AND NO ACUTE DISTRESS AT THIS TIME.
[2020-02-22 20:46] VITALS: BP 112/85
[2020-02-22] MEDS: cefepime 1GM/NS ADD-VANTAGE 100 ML IV SCH (22:24)
[2020-02-23] MEDS: amiodarone 200mg tablet PO SCH ×2 (01:59→07:46)
[2020-02-23] MEDS: metoprolol tartrate 50mg tablet PO SCH ×3 (02:05→20:11)
[2020-02-23] MEDS: normal saline 1000ml 1,000 ML IV SCH (02:09)
--- NOTE | 2020-02-23 06:29 | NUR ---
Patient in room PCU 3009. I have received report from Jennifer DALE and had the opportunity to ask questions and assume patient care. Patient up in room and on bi-pap. Offers no complaints. All immediate needs met at this time.
--- NOTE | 2020-02-23 06:31 | NUR ---
Patient in room PCU 3009. I have received report from Jennifer DALE and had the opportunity to ask questions and assume patient care.
--- NOTE | 2020-02-23 06:39 | NUR ---
Report given to DARION with use of SBAR. QUESTIONS ANSWERED.
[2020-02-23 07:00] VITALS: BP 135/81
[2020-02-23] MEDS: cefepime 1GM/NS ADD-VANTAGE 100 ML IV SCH (07:45)
[2020-02-23] MEDS: dexamethasone 4mg/ml inj IV SCH (07:47)
[2020-02-23] MEDS: K and/or MAG REPLACEMENT MC SCH ×2 (08:00→20:00)
[2020-02-23 08:19] LABS: BASOPHILS # (AUTO) 0.1 X10'3 (0-0.2); BASOPHILS % (AUTO) 0.5 % (0-1); EOSINOPHILS % (AUTO) 0 % (0-6); HEMATOCRIT 33.5 % (42.0-52.0); HEMOGLOBIN 11.2 g/dl (14.0-17.9); LYMPHOCYTES # (AUTO) 0.4 X10'3 (1.1-4.8); MEAN CORPUSCULAR HEMOGLOBIN 31.3 PG (27.0-31.0); MEAN CORPUSCULAR HGB CONC 33.4 g/dL (33.0-36.5); MEAN CORPUSCULAR VOLUME 93.8 FL (78-98); MEAN PLATELET VOLUME 7.1 FL (7.4-10.4); MONOCYTES # (AUTO) 0.6 X10'3 (0-0.9); MONOCYTES % (AUTO) 4.6 % (2-12); NEUTROPHILS # (AUTO) 12.1 X10'3 (1.8-7.7); NEUTROPHILS % (AUTO) 91.9 % (42-75); PLATELET COUNT 206 X10'3 (140-440); RED BLOOD COUNT 3.57 X10'6 (4.70-6.10); RED CELL DISTRIBUTION WIDTH 18.2 % (11.5-14.5); WHITE BLOOD COUNT 13.1 X10'3 (4.5-11.0)
[2020-02-23 09:24] LABS: ALANINE AMINOTRANSFERASE 149 U/L (12-78); ALBUMIN/GLOBULIN RATIO 0.9 (1.1-1.5); ALKALINE PHOSPHATASE 94 IU/L (46-116); ANION GAP 10 (8-16); ASPARTATE AMINO TRANSFERASE 36 U/L (10-37); BILIRUBIN,TOTAL 0.5 MG/DL (0.1-1.0); BLOOD UREA NITROGEN 29 MG/DL (7-18); BUN/CREATININE RATIO 33.7 (5.4-32.0); CALCIUM 8.2 MG/DL (8.5-10.1); CHLORIDE 100 MMOL/L (99-107); CREATININE 0.86 MG/DL (0.60-1.10); GLUCOSE 160 MG/DL (70-104); MAGNESIUM 2.5 MG/DL (1.5-2.4); PHOSPHORUS 4.9 MG/DL (2.3-4.5); POTASSIUM 4.8 MMOL/L (3.5-5.1); SODIUM 137 MMOL/L (135-145); TOTAL CARBON DIOXIDE 26.6 MMOL/L (24-32); TOTAL PROTEIN 6.3 G/DL (6.4-8.2); eGFR > 90 ML/MIN
[2020-02-23 10:18] LABS: PLATELET ESTIMATE NORMAL
[2020-02-23 10:19] LABS: ANISOCYTOSIS 1+
[2020-02-23 11:00] VITALS: BP 100/66
[2020-02-23] MEDS ORDERED: ipratropium/albuterol 3ml nebule NEB PRN (11:25)
[2020-02-23] MEDS: furosemide 20 MG/2 ML vial IV SCH (11:51)
[2020-02-23] MEDS: ipratropium/albuterol 3ml nebule NEB SCH ×2 (14:55→20:03)
[2020-02-23 15:00] VITALS: BP 107/69
--- NOTE | 2020-02-23 15:30 | NUR ---
Patient ambulated 100 feet, at 10L NC de-sat to 76%. Recovered at 94%.
[2020-02-23 18:00] VITALS: BP 122/74
--- NOTE | 2020-02-23 18:10 | NUR ---
Orientee documentation: I have reviewed and agree with all interventions, assessments performed and documented by SUYAPA Amado. [place] Medication Administration: For this medication-pass time frame, all medication were reviewed, dispensed, administered and documented per hospital policy by Ingris DALE.
--- NOTE | 2020-02-23 18:17 | NUR ---
Problems reprioritized. Patient report given, questions answered & plan of care reviewed with Jennifer RN. Patient stable at care of transfer.
--- NOTE | 2020-02-23 18:18 | NUR ---
Problems reprioritized. Patient report given, questions answered & plan of care reviewed with Jennifer RN. Patient stable at transfer of care.
--- NOTE | 2020-02-23 19:24 | NUR ---
received report from ELIZABETH RN, PATIENT PLEASANT, CARE PLAN REVIEWED. NO ACUTE DISTRESS AT THIS TIME
[2020-02-23] MEDS: lactobacillus rhamnosus 10,000 MMU CELLS/CAPSULE PO SCH (20:06)
[2020-02-23] MEDS: cefepime 2g/NS 100ml ADVANTAGE 100 ML IV SCH (20:21)
[2020-02-23 22:00] VITALS: BP 117/68
[2020-02-24 02:00] VITALS: BP 135/75
[2020-02-24] MEDS: ipratropium/albuterol 3ml nebule NEB SCH ×3 (02:25→15:00)
[2020-02-24 03:44] LABS: ALANINE AMINOTRANSFERASE 190 U/L (12-78); ALBUMIN 2.7 G/DL (3.4-5.0); ALKALINE PHOSPHATASE 73 IU/L (46-116); ANION GAP 4 (8-16); ASPARTATE AMINO TRANSFERASE 37 U/L (10-37); BILIRUBIN,TOTAL 0.6 MG/DL (0.1-1.0); BLOOD UREA NITROGEN 34 MG/DL (7-18); BUN/CREATININE RATIO 39.5 (5.4-32.0); C-REACTIVE PROTEIN 1.64 MG/DL (0.0-0.5); CHLORIDE 101 MMOL/L (99-107); CREATININE 0.86 MG/DL (0.60-1.10); GLUCOSE 112 MG/DL (70-104); MAGNESIUM 2.2 MG/DL (1.5-2.4); POTASSIUM 4.9 MMOL/L (3.5-5.1); SODIUM 136 MMOL/L (135-145); TOTAL CARBON DIOXIDE 30.8 MMOL/L (24-32); TOTAL PROTEIN 5.3 G/DL (6.4-8.2); eGFR > 90 ML/MIN
--- NOTE | 2020-02-24 06:10 | NUR ---
Report given to DARION/ ANGELINE, NO ACUTE DISTRESS AT THIS TIME. PATIENT REST ON BED QUIETLY DURING NIGHT , BREATHING TREATMENT GIVEN, BREATHING GET IMPROVED AND HEART RATE IN NORMAL RANGE
--- NOTE | 2020-02-24 06:15 | NUR ---
Patient in room PCU 3009. I have received report from Jennifer DALE and had the opportunity to ask questions and assume patient care. Patient in bed and resting. In no acute distress. All immediate needs met at this time.
--- NOTE | 2020-02-24 06:15 | NUR ---
Patient in room PCU 3009. I have received report from Jennifer DALE and had the opportunity to ask questions and assume patient care.
[2020-02-24 07:00] VITALS: BP 114/63
[2020-02-24 07:12] LABS: BASOPHILS % (AUTO) 0.3 % (0-1); EOSINOPHILS % (AUTO) 0.3 % (0-6); HEMATOCRIT 31.6 % (42.0-52.0); HEMOGLOBIN 10.6 g/dl (14.0-17.9); LYMPHOCYTES % (AUTO) 9.4 % (21-51); MEAN CORPUSCULAR HEMOGLOBIN 31.4 PG (27.0-31.0); MEAN CORPUSCULAR HGB CONC 33.5 g/dL (33.0-36.5); MEAN CORPUSCULAR VOLUME 93.7 FL (78-98); MEAN PLATELET VOLUME 6.9 FL (7.4-10.4); MONOCYTES # (AUTO) 0.6 X10'3 (0-0.9); MONOCYTES % (AUTO) 5.6 % (2-12); NEUTROPHILS # (AUTO) 8.9 X10'3 (1.8-7.7); NEUTROPHILS % (AUTO) 84.4 % (42-75); PLATELET COUNT 179 X10'3 (140-440); RED BLOOD COUNT 3.37 X10'6 (4.70-6.10); RED CELL DISTRIBUTION WIDTH 18.4 % (11.5-14.5); WHITE BLOOD COUNT 10.6 X10'3 (4.5-11.0)
[2020-02-24] MEDS ORDERED: rivaroxaban 15mg tablet PO SCH (07:30)
[2020-02-24] MEDS ORDERED: furosemide 20MG tablet PO SCH (08:00)
[2020-02-24] MEDS: K and/or MAG REPLACEMENT MC SCH ×2 (08:00→20:00)
[2020-02-24] MEDS ORDERED: amiodarone 200mg tablet PO SCH (08:00)
[2020-02-24] MEDS: furosemide 20 MG/2 ML vial IV SCH (08:10)
[2020-02-24] MEDS: dexamethasone 4mg/ml inj IV SCH (08:11)
[2020-02-24] MEDS: lactobacillus rhamnosus 10,000 MMU CELLS/CAPSULE PO SCH ×2 (08:11→21:57)
[2020-02-24] MEDS: metoprolol tartrate 50mg tablet PO SCH ×2 (08:12→21:56)
[2020-02-24] MEDS: amiodarone 200mg tablet PO SCH ×2 (08:13→21:55)
[2020-02-24] MEDS: pantoprazole 40mg Tablet.DR PO SCH (08:13)
[2020-02-24] MEDS: cefepime 2g/NS 100ml ADVANTAGE 100 ML IV SCH ×2 (08:57→21:55)
[2020-02-24 10:52] LABS: TOTAL CELLS COUNTED 100
[2020-02-24 10:53] LABS: ANISOCYTOSIS 2+; PLATELET ESTIMATE NORMAL
[2020-02-24 11:00] VITALS: BP 103/67
[2020-02-24 15:00] VITALS: BP 131/68
--- NOTE | 2020-02-24 15:45 | NUR ---
Paged Dr Pacheco. PAGER ID: [phone] MESSAGE: RE: Damian Ramos [phone]. FYI patient converted to NSR AT 1525, HR in the 90s. Crystal [phone]
[2020-02-24 18:00] VITALS: BP 124/74
--- NOTE | 2020-02-24 18:11 | NUR ---
Problems reprioritized. Patient report given, questions answered & plan of care reviewed with Jennifer RN. Patient stable at transfer of care.
--- NOTE | 2020-02-24 18:11 | NUR ---
Problems reprioritized. Patient report given, questions answered & plan of care reviewed with Jennifer RN. Patient stable at transfer of care.
[2020-02-24] MEDS ORDERED: lactobacillus rhamnosus 10,000 MMU CELLS/CAPSULE PO SCH (20:00)
[2020-02-24 22:00] VITALS: BP 110/70
[2020-02-24] MEDS: verapamil SR 120mg (sust. release) tab PO SCH (22:01)
[2020-02-25 02:00] VITALS: BP 113/75
--- NOTE | 2020-02-25 06:21 | NUR ---
Patient in room PCU 3009. I have received report from SUYAPA Rodriguez and had the opportunity to ask questions and assume patient care. Pt sleeping comfortably at change of shift.
--- NOTE | 2020-02-25 06:51 | NUR ---
GIVEN REPORT TO WILMA DALE, QUESTIONS.ANSWERED NO ACUTE DISTRESS AT THIS TIME. RESTING ON BED ALL NIGHT. PT STATED HE FEELS REALLY GOOD. HIS BREATHING GETS IMPROVING
[2020-02-25 07:00] VITALS: BP 94/63
[2020-02-25] MEDS: K and/or MAG REPLACEMENT MC SCH ×2 (08:00→20:00)
[2020-02-25] MEDS: metoprolol tartrate 50mg tablet PO SCH ×2 (08:00→20:58)
[2020-02-25] MEDS: dexamethasone 4mg/ml inj IV SCH (08:05)
[2020-02-25] MEDS: cefepime 2g/NS 100ml ADVANTAGE 100 ML IV SCH ×2 (08:05→20:57)
[2020-02-25] MEDS: lactobacillus rhamnosus 10,000 MMU CELLS/CAPSULE PO SCH ×2 (08:06→20:58)
[2020-02-25] MEDS: furosemide 20 MG/2 ML vial IV SCH (08:06)
[2020-02-25] MEDS: pantoprazole 40mg Tablet.DR PO SCH (08:07)
[2020-02-25] MEDS: rivaroxaban 15mg tablet PO SCH (08:07)
[2020-02-25] MEDS: amiodarone 200mg tablet PO SCH (08:07)
[2020-02-25] MEDS: verapamil SR 120mg (sust. release) tab PO SCH ×2 (08:32→20:57)
[2020-02-25 09:00] LABS: BASOPHILS % (AUTO) 0.4 % (0-1); EOSINOPHILS % (AUTO) 0.6 % (0-6); HEMATOCRIT 31.7 % (42.0-52.0); HEMOGLOBIN 10.7 g/dl (14.0-17.9); LYMPHOCYTES # (AUTO) 0.7 X10'3 (1.1-4.8); LYMPHOCYTES % (AUTO) 9.8 % (21-51); MEAN CORPUSCULAR HEMOGLOBIN 31.6 PG (27.0-31.0); MEAN CORPUSCULAR HGB CONC 33.9 g/dL (33.0-36.5); MEAN CORPUSCULAR VOLUME 93.3 FL (78-98); MEAN PLATELET VOLUME 6.7 FL (7.4-10.4); MONOCYTES # (AUTO) 0.2 X10'3 (0-0.9); MONOCYTES % (AUTO) 3.3 % (2-12); NEUTROPHILS # (AUTO) 6.4 X10'3 (1.8-7.7); NEUTROPHILS % (AUTO) 85.9 % (42-75); PLATELET COUNT 172 X10'3 (140-440); RED CELL DISTRIBUTION WIDTH 18.5 % (11.5-14.5); WHITE BLOOD COUNT 7.4 X10'3 (4.5-11.0)
[2020-02-25 09:19] LABS: ALANINE AMINOTRANSFERASE 158 U/L (12-78); ALKALINE PHOSPHATASE 77 IU/L (46-116); ANION GAP 6 (8-16); ASPARTATE AMINO TRANSFERASE 24 U/L (10-37); BILIRUBIN,TOTAL 0.6 MG/DL (0.1-1.0); BLOOD UREA NITROGEN 25 MG/DL (7-18); BUN/CREATININE RATIO 24.8 (5.4-32.0); C-REACTIVE PROTEIN 0.62 MG/DL (0.0-0.5); CALCIUM 8.2 MG/DL (8.5-10.1); CHLORIDE 99 MMOL/L (99-107); CREATININE 1.01 MG/DL (0.60-1.10); GLUCOSE 164 MG/DL (70-104); MAGNESIUM 2.1 MG/DL (1.5-2.4); PHOSPHORUS 4.2 MG/DL (2.3-4.5); POTASSIUM 4.3 MMOL/L (3.5-5.1); SODIUM 134 MMOL/L (135-145); TOTAL CARBON DIOXIDE 29.5 MMOL/L (24-32); TOTAL PROTEIN 6.1 G/DL (6.4-8.2); eGFR 78 ML/MIN
[2020-02-25 09:44] LABS: NUCLEATED RED BLOOD CELLS 3 /100WBC (0-0); TOTAL CELLS COUNTED 100
[2020-02-25 09:45] LABS: ANISOCYTOSIS 2+; PLATELET ESTIMATE NORMAL; POLYCHROMASIA 1+
[2020-02-25 11:00] VITALS: BP 113/68
[2020-02-25 15:00] VITALS: BP 104/63
[2020-02-25 18:00] VITALS: BP 135/84
--- NOTE | 2020-02-25 18:38 | NUR ---
Problems reprioritized. Patient report given, questions answered & plan of care reviewed with SUYAPA Machado. Pt sitting up in bed, watching tv comfortably. All pt needs met at this time.
--- NOTE | 2020-02-25 18:42 | NUR ---
Patient in room PCU 3009. I have received report from Radha Hooker RN and had the opportunity to ask questions and assume patient care.
[2020-02-25 22:00] VITALS: BP 117/70
[2020-02-26 02:00] VITALS: BP 119/69
--- NOTE | 2020-02-26 06:44 | NUR ---
Patient in room PCU 3009. I have received report from SUYAPA Machado and had the opportunity to ask questions and assume patient care. Pt sitting up in bed, resting comfortably at change of shift.
--- NOTE | 2020-02-26 06:50 | NUR ---
Problems reprioritized. Patient report given, questions answered & plan of care reviewed with Radha Hooker RN.
[2020-02-26 07:00] VITALS: BP 128/80
[2020-02-26] MEDS: K and/or MAG REPLACEMENT MC SCH ×2 (08:00→20:00)
[2020-02-26] MEDS: lactobacillus rhamnosus 10,000 MMU CELLS/CAPSULE PO SCH ×2 (08:06→20:10)
[2020-02-26] MEDS: pantoprazole 40mg Tablet.DR PO SCH (08:09)
[2020-02-26] MEDS: verapamil SR 120mg (sust. release) tab PO SCH ×2 (08:09→20:10)
[2020-02-26] MEDS: rivaroxaban 15mg tablet PO SCH (08:09)
[2020-02-26] MEDS: metoprolol tartrate 50mg tablet PO SCH ×2 (08:09→20:11)
[2020-02-26] MEDS: amiodarone 200mg tablet PO SCH (08:09)
[2020-02-26] MEDS: furosemide 20 MG/2 ML vial IV SCH (08:10)
[2020-02-26] MEDS: cefepime 2g/NS 100ml ADVANTAGE 100 ML IV SCH ×2 (08:10→20:10)
[2020-02-26] MEDS: dexamethasone 4mg/ml inj IV SCH (08:10)
[2020-02-26 08:16] LABS: BASOPHILS % (AUTO) 0.2 % (0-1); EOSINOPHILS % (AUTO) 0.6 % (0-6); HEMATOCRIT 31.1 % (42.0-52.0); HEMOGLOBIN 10.5 g/dl (14.0-17.9); LYMPHOCYTES # (AUTO) 0.8 X10'3 (1.1-4.8); LYMPHOCYTES % (AUTO) 11.5 % (21-51); MEAN CORPUSCULAR HEMOGLOBIN 31.3 PG (27.0-31.0); MEAN CORPUSCULAR HGB CONC 33.7 g/dL (33.0-36.5); MEAN CORPUSCULAR VOLUME 92.9 FL (78-98); MEAN PLATELET VOLUME 6.9 FL (7.4-10.4); MONOCYTES # (AUTO) 0.5 X10'3 (0-0.9); NEUTROPHILS # (AUTO) 5.6 X10'3 (1.8-7.7); NEUTROPHILS % (AUTO) 80.7 % (42-75); PLATELET COUNT 167 X10'3 (140-440); RED BLOOD COUNT 3.34 X10'6 (4.70-6.10); RED CELL DISTRIBUTION WIDTH 18.6 % (11.5-14.5); WHITE BLOOD COUNT 6.9 X10'3 (4.5-11.0)
[2020-02-26 08:42] LABS: ALANINE AMINOTRANSFERASE 133 U/L (12-78); ALBUMIN 2.9 G/DL (3.4-5.0); ALBUMIN/GLOBULIN RATIO 0.9 (1.1-1.5); ALKALINE PHOSPHATASE 71 IU/L (46-116); ANION GAP 7 (8-16); ASPARTATE AMINO TRANSFERASE 17 U/L (10-37); BILIRUBIN,TOTAL 0.5 MG/DL (0.1-1.0); BLOOD UREA NITROGEN 23 MG/DL (7-18); BUN/CREATININE RATIO 30.3 (5.4-32.0); C-REACTIVE PROTEIN 0.27 MG/DL (0.0-0.5); CALCIUM 8.5 MG/DL (8.5-10.1); CHLORIDE 99 MMOL/L (99-107); CREATININE 0.76 MG/DL (0.60-1.10); GLUCOSE 99 MG/DL (70-104); MAGNESIUM 2.4 MG/DL (1.5-2.4); PHOSPHORUS 4.5 MG/DL (2.3-4.5); POTASSIUM 4.3 MMOL/L (3.5-5.1); SODIUM 137 MMOL/L (135-145); TOTAL PROTEIN 6.1 G/DL (6.4-8.2); eGFR > 90 ML/MIN
--- NOTE | 2020-02-26 09:55 | NUR ---
Great appetite 75-100% PO intake. Meeting nutrition needs. Admitted with acute respiratory failure with bilateral pneumonia post COVID with superimposed bacterial infection, HTN, AFIB, GERD, all per MD note. No nutrition problem at this time. Recommend: 1. Continue heart healthy diet 2. Bowel care as needed 3. Wt per rx Addendum: 02/26/20 at [address] Amended: Links added.
[2020-02-26 10:00] LABS: ANISOCYTOSIS 2+; NUCLEATED RED BLOOD CELLS 1 /100WBC (0-0); PLATELET ESTIMATE NORMAL; POLYCHROMASIA 2+; TOTAL CELLS COUNTED 100
[2020-02-26 11:00] VITALS: BP 101/66
[2020-02-26 15:00] VITALS: BP 116/62
[2020-02-26 18:00] VITALS: BP 116/77
[2020-02-26 22:00] VITALS: BP 106/61
[2020-02-27 01:33] LABS: ABG BASE EXCESS 3.7 mmol/L (-2.0-2.0); ABG HCO3 28.4 mmol/L (22.0-26.0); ABG PCO2 (T) 42.7 mmHg (35.0-48.0); ABG PO2 (T) 61.4 mmHg (75.0-100.0); ALLEN'S TEST POSITIVE; FCOHb 0.1 % (0.0-3.9); FLOW 2 L/min; FMetHb 0.3 % (0.0-1.5); FO2Hb 91.6 % (94-97); PATIENT TEMPERATURE 36.8; TOTAL HEMOGLOBIN 11.6 G/dl (14.0-18.0)
[2020-02-27 02:00] VITALS: BP 109/70
[2020-02-27 06:07] LABS: BASOPHILS % (AUTO) 0.2 % (0-1); EOSINOPHILS # (AUTO) 0.1 X10'3 (0-0.9); EOSINOPHILS % (AUTO) 0.8 % (0-6); HEMOGLOBIN 11.2 g/dl (14.0-17.9); LYMPHOCYTES # (AUTO) 0.9 X10'3 (1.1-4.8); LYMPHOCYTES % (AUTO) 12.2 % (21-51); MEAN CORPUSCULAR HEMOGLOBIN 31.7 PG (27.0-31.0); MEAN CORPUSCULAR HGB CONC 33.8 g/dL (33.0-36.5); MEAN CORPUSCULAR VOLUME 93.9 FL (78-98); MEAN PLATELET VOLUME 6.7 FL (7.4-10.4); MONOCYTES # (AUTO) 0.6 X10'3 (0-0.9); MONOCYTES % (AUTO) 7.8 % (2-12); NEUTROPHILS # (AUTO) 5.7 X10'3 (1.8-7.7); PLATELET COUNT 185 X10'3 (140-440); RED BLOOD COUNT 3.52 X10'6 (4.70-6.10); RED CELL DISTRIBUTION WIDTH 18.5 % (11.5-14.5); WHITE BLOOD COUNT 7.3 X10'3 (4.5-11.0)
[2020-02-27 06:21] LABS: ALANINE AMINOTRANSFERASE 114 U/L (12-78); ALKALINE PHOSPHATASE 77 IU/L (46-116); ANION GAP 4 (8-16); ASPARTATE AMINO TRANSFERASE 19 U/L (10-37); BILIRUBIN,TOTAL 0.3 MG/DL (0.1-1.0); BLOOD UREA NITROGEN 26 MG/DL (7-18); BUN/CREATININE RATIO 29.9 (5.4-32.0); C-REACTIVE PROTEIN 0.12 MG/DL (0.0-0.5); CALCIUM 8.3 MG/DL (8.5-10.1); CHLORIDE 100 MMOL/L (99-107); CREATININE 0.87 MG/DL (0.60-1.10); GLUCOSE 96 MG/DL (70-104); MAGNESIUM 2.4 MG/DL (1.5-2.4); PHOSPHORUS 4.2 MG/DL (2.3-4.5); POTASSIUM 4.4 MMOL/L (3.5-5.1); SODIUM 138 MMOL/L (135-145); TOTAL CARBON DIOXIDE 34.1 MMOL/L (24-32); TOTAL PROTEIN 6.1 G/DL (6.4-8.2); eGFR > 90 ML/MIN
[2020-02-27 06:30] VITALS: BP 114/77
--- NOTE | 2020-02-27 06:30 | NUR ---
Patient in room U 3009. I have received report from NEW DALE and had the opportunity to ask questions and assume patient care. PT SITTING UP IN CHAIR. WATCHING NEWS ON HIS TABLET. CALL LIGHT IN REACH. Addendum: 02/27/20 at 0733 by Caprice Aguero RN Amended: Links added.
--- NOTE | 2020-02-27 06:31 | NUR ---
Report given to Adriana DALE.
[2020-02-27 07:04] LABS: NUCLEATED RED BLOOD CELLS 1 /100WBC (0-0); TOTAL CELLS COUNTED 100
[2020-02-27 07:05] LABS: ANISOCYTOSIS 2+; PLATELET ESTIMATE NORMAL; POLYCHROMASIA 2+; TOXIC GRANULATION 1+
[2020-02-27] MEDS: pantoprazole 40mg Tablet.DR PO SCH (07:54)
[2020-02-27] MEDS: rivaroxaban 15mg tablet PO SCH (07:54)
[2020-02-27] MEDS: amiodarone 200mg tablet PO SCH (07:55)
[2020-02-27] MEDS: metoprolol tartrate 50mg tablet PO SCH ×2 (07:55→19:53)
[2020-02-27] MEDS: lactobacillus rhamnosus 10,000 MMU CELLS/CAPSULE PO SCH ×2 (07:56→19:52)
[2020-02-27] MEDS: verapamil SR 120mg (sust. release) tab PO SCH ×2 (07:56→19:52)
[2020-02-27] MEDS: cefepime 2g/NS 100ml ADVANTAGE 100 ML IV SCH ×2 (07:57→19:52)
[2020-02-27] MEDS: dexamethasone 4mg/ml inj IV SCH (07:58)
[2020-02-27] MEDS: furosemide 20 MG/2 ML vial IV SCH (07:58)
[2020-02-27] MEDS: K and/or MAG REPLACEMENT MC SCH ×2 (08:00→19:21)
--- NOTE | 2020-02-27 11:09 | NUR ---
AMB PT IN HALLS. PT O2 SAT DROPPED TO HIGH 70'S ON RA. PT RETURNED TO ROOM. PT O2 SAT AFTER 15 MIN REMAINED NO HIGHER THAN 78 ON RA AT REST. REPLACED O2 @ 1L. O2 SAT RETURNED TO 93%
[2020-02-27 12:04] VITALS: BP 140/89
[2020-02-27 15:00] VITALS: BP 110/63
[2020-02-27 18:00] VITALS: BP 124/75
--- NOTE | 2020-02-27 18:13 | NUR ---
Problems reprioritized. Patient report given, questions answered & plan of care reviewed with NEW DALE. PT EATING DINNER. NO DISTRESS Addendum: 02/27/20 at 1813 by Caprice Aguero RN Amended: Links added.
[2020-02-27 21:57] VITALS: BP 111/59
[2020-02-28 02:00] VITALS: BP 106/71
--- NOTE | 2020-02-28 06:07 | NUR ---
Report given to Kyleigh DALE.
--- NOTE | 2020-02-28 06:42 | NUR ---
Patient in room U 3009. I have received report from SUYAPA Dey and had the opportunity to ask questions and assume patient care. Patient awake and sitting up in chair and in no acute distress.
[2020-02-28 07:10] VITALS: BP 115/68
[2020-02-28] MEDS: dexamethasone 4mg/ml inj IV SCH (07:55)
[2020-02-28] MEDS: cefepime 2g/NS 100ml ADVANTAGE 100 ML IV SCH ×2 (07:55→20:16)
[2020-02-28] MEDS: furosemide 20 MG/2 ML vial IV SCH (07:56)
[2020-02-28] MEDS: lactobacillus rhamnosus 10,000 MMU CELLS/CAPSULE PO SCH ×2 (07:57→20:15)
[2020-02-28] MEDS: amiodarone 200mg tablet PO SCH (07:57)
[2020-02-28] MEDS: verapamil SR 120mg (sust. release) tab PO SCH ×2 (07:58→20:16)
[2020-02-28] MEDS: pantoprazole 40mg Tablet.DR PO SCH (07:58)
[2020-02-28] MEDS: rivaroxaban 15mg tablet PO SCH (07:58)
[2020-02-28] MEDS: metoprolol tartrate 50mg tablet PO SCH ×2 (07:59→20:15)
[2020-02-28] MEDS: K and/or MAG REPLACEMENT MC SCH ×2 (08:00→20:00)
[2020-02-28 11:00] VITALS: BP 104/58
[2020-02-28 15:00] VITALS: BP 118/70
[2020-02-28 18:00] VITALS: BP 130/81
--- NOTE | 2020-02-28 18:28 | NUR ---
Patient in room PCU 3009. I have received report from Kyleigh DALE and had the opportunity to ask questions and assume patient care.
--- NOTE | 2020-02-28 18:39 | NUR ---
Problems reprioritized. Patient report given, questions answered & plan of care reviewed with SUYAPA Moreno. Patient stable at transfer of care.
[2020-02-28 22:00] VITALS: BP 113/69
[2020-02-29 02:00] VITALS: BP 122/73
--- NOTE | 2020-02-29 06:12 | NUR ---
Problems reprioritized. Patient report given, questions answered & plan of care reviewed with Jeannette DALE.
--- NOTE | 2020-02-29 06:34 | NUR ---
Patient in room PCU 3009. I have received report from SUYAPA Melissa and had the opportunity to ask questions and assume patient care.
[2020-02-29 07:00] VITALS: BP 112/65
[2020-02-29] MEDS: rivaroxaban 15mg tablet PO SCH (07:32)
[2020-02-29] MEDS: verapamil SR 120mg (sust. release) tab PO SCH (07:32)
[2020-02-29] MEDS: lactobacillus rhamnosus 10,000 MMU CELLS/CAPSULE PO SCH (07:32)
[2020-02-29] MEDS: amiodarone 200mg tablet PO SCH (07:32)
[2020-02-29] MEDS: pantoprazole 40mg Tablet.DR PO SCH (07:33)
[2020-02-29] MEDS: metoprolol tartrate 50mg tablet PO SCH (07:36)
[2020-02-29] MEDS: cefepime 2g/NS 100ml ADVANTAGE 100 ML IV SCH (07:36)
[2020-02-29] MEDS: furosemide 20 MG/2 ML vial IV SCH (07:36)
[2020-02-29] MEDS: K and/or MAG REPLACEMENT MC SCH (08:00)
[2020-02-29] MEDS ORDERED: dexamethasone 1mg tablet PO SCH (08:00)
[2020-02-29 11:00] VITALS: BP 111/67
[2020-02-29] MEDS ORDERED: DEC1T PO (11:17)
[2020-02-29] MEDS ORDERED: VERA240T12 PO (11:17)
--- NOTE | 2020-02-29 16:18 | NUR ---
Orientee documentation: I have reviewed and agree with all interventions, assessments performed and documented by Lillie DALE. [place] Medication Administration: For this medication-pass time frame, medication were reviewed, dispensed, administered and documented per hospital policy by Lillie DALE.
== END 2020-02-29 12:28 | disposition home or self-care (01) | DRG 177 ==
LOC: ER 07:53 → ED HOLD 10:47 → EDBEDREQ 18:28 → PCU 3S 19:56
PROVIDERS: ADMIT Family Medicine; ATTEND Family Medicine
PROC: B32T1ZZ Computerized Tomography (CT Scan) of Left Pulmonary Artery using Low Osmolar Contrast (ICD-10-PCS; 2020-02-22)
PROC: B3201ZZ Computerized Tomography (CT Scan) of Thoracic Aorta using Low Osmolar Contrast (ICD-10-PCS; 2020-02-22)
PROC: B32S1ZZ Computerized Tomography (CT Scan) of Right Pulmonary Artery using Low Osmolar Contrast (ICD-10-PCS; 2020-02-22)
PROC: 5A09357 Assistance with Respiratory Ventilation, Less than 24 Consecutive Hours, Continuous Positive Airway Pressure (ICD-10-PCS; principal; 2020-02-24)
PROC: 5A09357 Assistance with Respiratory Ventilation, Less than 24 Consecutive Hours, Continuous Positive Airway Pressure (ICD-10-PCS; 2020-02-25)
PROC: 5A09357 Assistance with Respiratory Ventilation, Less than 24 Consecutive Hours, Continuous Positive Airway Pressure (ICD-10-PCS; 2020-02-26)
PROC: 5A09357 Assistance with Respiratory Ventilation, Less than 24 Consecutive Hours, Continuous Positive Airway Pressure (ICD-10-PCS; 2020-02-28)
PROC: 5A09357 Assistance with Respiratory Ventilation, Less than 24 Consecutive Hours, Continuous Positive Airway Pressure (ICD-10-PCS; 2020-02-29)
DX: U07.1 COVID-19 (principal); J12.82 Pneumonia due to coronavirus disease 2019; J80 Acute respiratory distress syndrome; R04.2 Hemoptysis; G47.33 Obstructive sleep apnea (adult) (pediatric); I10 Essential (primary) hypertension; I48.91 Unspecified atrial fibrillation; E66.01 Morbid (severe) obesity due to excess calories; K21.9 Gastro-esophageal reflux disease without esophagitis; Z79.01 Long term (current) use of anticoagulants; Z79.899 Other long term (current) drug therapy; Z80.0 Family history of malignant neoplasm of digestive organs; Z80.1 Family history of malignant neoplasm of trachea, bronchus and lung; Z68.35 Body mass index [BMI] 35.0-35.9, adult
CPT/HCPCS: 36415; 36600; 71045; 71275; 80053; 81001; 82803; 83605; 83735; 83880; 84100; 84145; 84484; 85007; 85008; 85018; 85025; 86140; 87040; 87070; 87077; 87081; 87186; 93005; 94640; 94660; 94760; 96374; 96375; 97110; 97116; 97161; 97530; 99285; G0378; J0692; J1100; J1940; J2060; J3490; J7030; J8540; Q9967

== ENCOUNTER 2020-04-20 14:59 | Outpatient (CLI) | payer BC ==
[~2020-04-20 14:59] MED LIST changes: +AMIO200T61 PO; -ASCO-139 PO; +DEC1T PO; -DEC4T PO; -DILT-36 PO; +FURO-150 PO; -FURO40TA4 PO; +METO50TA16 PO; -METO50TA17 PO; -MULT-1085 PO; -OMEG-79 PO; +VERA240T12 PO; -VITA-268 PO
== END 2020-04-20 23:59 | disposition home or self-care (01) ==
LOC: CARD DIAG 14:59
PROVIDERS: ATTEND Internal Medicine Infectious Disease
DX: I34.0 Nonrheumatic mitral (valve) insufficiency (principal)
CPT/HCPCS: 93306

== ENCOUNTER 2022-05-15 19:35 | Emergency (ER) | payer BC ==
[~2022-05-15] VITALS: Ht 185.4 cm; Wt 116.2 kg
[~2022-05-15 19:35] MED LIST changes: -OMEP-50 PO; +OMEP20CA16 PO; -VERA240T12 PO; +VERA240T92 PO
[2022-05-15 22:34] VITALS: BP_DIAS 108
[2022-05-16 00:10] VITALS: BP_SYST 163
[2022-05-16] MEDS: amLODIPine 5mg tablet PO ONE (00:10)
[2022-05-16 00:15] LABS: BASOPHILS # (AUTO) 0.1 X10'3 (0-0.2); EOSINOPHILS # (AUTO) 0.1 X10'3 (0-0.9); EOSINOPHILS % (AUTO) 2.5 % (0-6); HEMATOCRIT 41.8 % (42.0-52.0); HEMOGLOBIN 14.5 g/dl (14.0-17.9); LYMPHOCYTES # (AUTO) 2.1 X10'3 (1.1-4.8); LYMPHOCYTES % (AUTO) 36.6 % (21-51); MEAN CORPUSCULAR HGB CONC 34.6 g/dL (33.0-36.5); MEAN CORPUSCULAR VOLUME 89.5 FL (78-98); MEAN PLATELET VOLUME 7.1 FL (7.4-10.4); MONOCYTES # (AUTO) 0.5 X10'3 (0-0.9); NEUTROPHILS # (AUTO) 2.9 X10'3 (1.8-7.7); NEUTROPHILS % (AUTO) 50.9 % (42-75); PLATELET COUNT 170 X10'3 (140-440); RED BLOOD COUNT 4.67 X10'6 (4.70-6.10); WHITE BLOOD COUNT 5.7 X10'3 (4.5-11.0)
[2022-05-16 00:29] LABS: ANION GAP 9 (8-16); CHLORIDE 103 MMOL/L (99-107); GLUCOSE 90 MG/DL (70-104); POTASSIUM 3.6 MMOL/L (3.5-5.1); SODIUM 139 MMOL/L (135-145)
[2022-05-16 00:30] LABS: ALANINE AMINOTRANSFERASE 33 U/L (12-78); ALBUMIN 3.7 G/DL (3.4-5.0); ALKALINE PHOSPHATASE 72 IU/L (46-116); ASPARTATE AMINO TRANSFERASE 25 U/L (10-37); BILIRUBIN,TOTAL 0.4 MG/DL (0.1-1.0); BLOOD UREA NITROGEN 21 MG/DL (7-18); BUN/CREATININE RATIO 22.8 (10.0-20.0); CALCIUM 8.9 MG/DL (8.5-10.1); CREATININE 0.92 MG/DL (0.60-1.10); TOTAL PROTEIN 7.3 G/DL (6.4-8.2); eGFR 86 ML/MIN
[2022-05-16] MEDS ORDERED: AMLO5TAB4 PO (01:24)
--- NOTE | 2022-05-16 01:40 | NUR ---
iv dc'd pt being discharged dressing applied
== END 2022-05-16 01:44 | disposition home or self-care (01) ==
LOC: ER 19:37
DX: I10 Essential (primary) hypertension (principal); I50.9 Heart failure, unspecified; Z79.899 Other long term (current) drug therapy; Z79.1 Long term (current) use of non-steroidal anti-inflammatories (NSAID); Z79.2 Long term (current) use of antibiotics
CPT/HCPCS: 36415; 71045; 80053; 83880; 84443; 84484; 85025; 93005; 99285

== ENCOUNTER 2023-07-30 02:57 | Inpatient (IN) | payer BC ==
[~2023-07-30] VITALS: Ht 185.4 cm; Wt 128.2 kg
[~2023-07-30 02:57] MED LIST changes: +AMI200T PO; -AMIO200T61 PO; +AMLO5TAB4 PO
[2023-07-30] MEDS: ondansetron/PF 4mg/2ml inj IV ONE ×2 (04:12→06:38)
[2023-07-30] MEDS: morphine 4 MG/ML inj SYRINge IV ONE (04:15)
[2023-07-30 04:18] LABS: BASOPHILS # (AUTO) 0.1 X10'3 (0-0.2); BASOPHILS % (AUTO) 0.7 % (0-1); EOSINOPHILS # (AUTO) 0.1 X10'3 (0-0.9); EOSINOPHILS % (AUTO) 1.2 % (0-6); HEMOGLOBIN 14.1 g/dl (14.0-17.9); LYMPHOCYTES # (AUTO) 1.4 X10'3 (1.1-4.8); LYMPHOCYTES % (AUTO) 14.5 % (21-51); MEAN CORPUSCULAR HEMOGLOBIN 31.6 PG (27.0-31.0); MEAN CORPUSCULAR HGB CONC 34.5 g/dL (33.0-36.5); MEAN CORPUSCULAR VOLUME 91.7 FL (78-98); MEAN PLATELET VOLUME 8.1 FL (7.4-10.4); MONOCYTES % (AUTO) 10.3 % (2-12); NEUTROPHILS # (AUTO) 7.2 X10'3 (1.8-7.7); NEUTROPHILS % (AUTO) 73.3 % (42-75); PLATELET COUNT 226 X10'3 (140-440); RED BLOOD COUNT 4.47 X10'6 (4.70-6.10); RED CELL DISTRIBUTION WIDTH 14.6 % (11.5-14.5); WHITE BLOOD COUNT 9.8 X10'3 (4.5-11.0)
[2023-07-30] MEDS: ringers solution, lacted 1,000 ML IV ONE (04:21)
[2023-07-30 04:34] LABS: BILIRUBIN,URINE NEGATIVE (Neg); CLARITY,URINE SLIGHTLY CLOUDY (Clear); COLOR,URINE STRAW (Yellow); GLUCOSE, URINE NEGATIVE (Neg); KETONES,URINE NEGATIVE (Neg); LEUKOCYTE ESTERASE ,URINE NEGATIVE (Neg); NITRITES, URINE NEGATIVE (Neg); OCCULT BLOOD,URINE LARGE (Neg); PROTEIN,URINE 30 mg/dl (Neg); UROBILINOGEN,URINE 0.2 E.U/dL (0.2-1.0)
[2023-07-30 04:38] LABS: UA COLLECTION TYPE CLN CATCH MIDSTREAM
[2023-07-30 04:41] LABS: BACTERIA,URINE 2+ /HPF (Neg); RBC,URINE TNTC /HPF (0-2); SQUAMOUS EPITHELIAL CELL,UR FEW /LPF (FEW); WBC,URINE 0-4 /HPF (0-4)
[2023-07-30 04:42] LABS: URIC ACID CRYSTALS 4+ /HPF (NEGATIVE)
[2023-07-30 05:41] LABS: ALBUMIN 3.7 G/DL (3.4-5.0); ANION GAP 11 (8-16); BLOOD UREA NITROGEN 28 MG/DL (7-18); BUN/CREATININE RATIO 16.5 (10.0-20.0); CHLORIDE 101 MMOL/L (99-107); GLUCOSE 115 MG/DL (70-104); LIPASE 49 U/L (16-77); POTASSIUM 3.5 MMOL/L (3.5-5.1); SODIUM 138 MMOL/L (135-145); eCRCL 55 ML/MIN; eGFR 42 ML/MIN
[2023-07-30] MEDS ORDERED: iohexol 300mg/ml 100ml inj. ONE (05:42)
[2023-07-30] MEDS ORDERED: FLO0.4C PO (06:36)
[2023-07-30] MEDS: ketorolac tromethamine 15mg/ml inj. IV ONE (06:39)
[2023-07-30] MEDS ORDERED: potassium Cl 40MEQ/1/2NS 520ml 520 ML IV PRN (07:40)
[2023-07-30] MEDS ORDERED: HYDROmorphone/PF 0.2 MG/ML SYRINGE IV PRN (07:40)
[2023-07-30] MEDS ORDERED: acetaminophen 325mg tablet PO PRN ×2 (07:40)
[2023-07-30] MEDS ORDERED: magnesium 2GM in 50ml NS 50 ML IV PRN (07:40)
[2023-07-30] MEDS ORDERED: potassium Cl 20 mEq SR tablet PO PRN ×2 (07:40)
[2023-07-30] MEDS ORDERED: magnesium Cl slow-release 64mg tablet PO PRN (07:40)
[2023-07-30] MEDS ORDERED: mag hydrox/Alum hydrox/simeth 30ml oral suspension PO PRN (07:40)
[2023-07-30] MEDS ORDERED: morphine 2 MG/ML inj. syringe IV PRN ×2 (07:40→15:30)
[2023-07-30] MEDS ORDERED: magnesium 4gm in 100ml NS 100 ML IV PRN (07:40)
[2023-07-30] MEDS ORDERED: ondansetron/PF 4mg/2ml inj IV PRN ×2 (07:40→15:30)
[2023-07-30] MEDS ORDERED: ketorolac tromethamine 15mg/ml inj. IV PRN (07:45)
[2023-07-30] MEDS: K and/or MAG REPLACEMENT MC SCH (08:00)
[2023-07-30 08:12] LABS: MAGNESIUM 1.7 MG/DL (1.5-2.4)
[2023-07-30] MEDS ORDERED: [UNRECOGNIZED DRUG - CODE] PO (08:22)
[2023-07-30] MEDS ORDERED: METO-411 PO (08:22)
[2023-07-30] MEDS ORDERED: ROSU5TAB12 PO (08:22)
[2023-07-30] MEDS: metoprolol succinate 25mg (24-HOUR) SR. Tablet PO SCH (09:06)
[2023-07-30] MEDS: heparin, porcine 5000 units/ml vial SQ SCH (09:07)
[2023-07-30] MEDS: atorvastatin 20mg tablet PO SCH (09:08)
[2023-07-30] MEDS: pantoprazole 40mg Tablet.DR PO SCH (09:08)
[2023-07-30] MEDS: losartan 50mg tablet PO SCH (09:08)
[2023-07-30] MEDS: normal saline 1000ml 1,000 ML IV SCH (09:09)
[2023-07-30] MEDS: amLODIPine 5mg tablet PO SCH (09:09)
[2023-07-30] MEDS: CefTRIAXone/D5W-Rocephin 1gm 50 ML IV SCH (09:09)
[2023-07-30] MEDS: HYDROchlorothiazide 12.5mg capsule PO SCH (09:09)
[2023-07-30] MEDS ORDERED: hydrALAZINE 20mg/ml inj. IV PRN (15:30)
[2023-07-30] MEDS ORDERED: fentaNYL/PF 50MCG/1 ML 2ML syringe IV PRN ×2 (15:30)
[2023-07-30] MEDS ORDERED: ringers solution, lacted 1,000 ML IV SCH (15:30)
[2023-07-30] MEDS ORDERED: labetalol 20mg/4ml (5mg/ml) syringe IV PRN (15:30)
[2023-07-30] MEDS ORDERED: morphine 4 MG/ML inj SYRINge IV PRN (15:30)
[2023-07-30] MEDS ORDERED: iohexol 300 MG/1 ML 50ml polymer ONE (17:50)
[2023-07-30] MEDS ORDERED: midazolam 1 mg/ML 2ml injection ONE (18:12)
[2023-07-30] MEDS ORDERED: LIDOcaine 2% (20mg/ml) 5ml vial ONE (18:12)
[2023-07-30] MEDS ORDERED: fentaNYL/PF 50MCG/1 ML 2ML syringe ONE (18:12)
[2023-07-30] MEDS ORDERED: propofol inj 20 ML IV ONE (18:13)
[2023-07-30] MEDS ORDERED: sevoflurane 250ml liquid IH ONE (18:13)
[2023-07-30] MEDS ORDERED: ceFAZolin 1000mg inj ONE ×2 (18:19)
[2023-07-30 19:01] VITALS: BP 132/91; PULSE 67; RESP 14; O2SAT 100
[2023-07-30 19:10] VITALS: BP 131/90; PULSE 67; RESP 15; O2SAT 96
[2023-07-30 19:20] VITALS: BP 129/74; PULSE 58; RESP 16; O2SAT 95
[2023-07-30 19:30] VITALS: BP 123/78; PULSE 63; RESP 15; O2SAT 96
[2023-07-30 19:40] VITALS: BP 140/82; PULSE 55; RESP 14; O2SAT 98
[2023-07-30 20:20] VITALS: BP 141/86; PULSE 57; RESP 16; TEMP 97.2; O2SAT 98
[2023-07-30] MEDS ORDERED: tamsulosin 0.4mg capsule PO SCH (21:00)
[2023-07-31] MEDS ORDERED: [UNRECOGNIZED DRUG - OTHER] PO SCH (08:00)
[2023-07-31] MEDS ORDERED: VALSARTAN PO SCH (08:00)
[2023-07-31] MEDS ORDERED: HCTHIAZID PO SCH (08:00)
[2023-07-31] MEDS ORDERED: AMLODIPINE PO SCH (08:00)
== END 2023-07-30 20:30 | disposition home or self-care (01) | DRG 661 ==
LOC: ER 02:57 → ED HOLD 07:42 → ORTHO 4S 19:48
PROVIDERS: ADMIT Family Medicine; ATTEND Family Medicine
PROC: 0T768DZ Dilation of Right Ureter with Intraluminal Device, Via Natural or Artificial Opening Endoscopic (ICD-10-PCS; 2023-07-30)
PROC: BW211ZZ Computerized Tomography (CT Scan) of Abdomen and Pelvis using Low Osmolar Contrast (ICD-10-PCS; 2023-07-30)
PROC: 0TC68ZZ Extirpation of Matter from Right Ureter, Via Natural or Artificial Opening Endoscopic (ICD-10-PCS; principal; 2023-07-30 18:13)
DX: N13.2 Hydronephrosis with renal and ureteral calculous obstruction (principal); E78.00 Pure hypercholesterolemia, unspecified; N17.9 Acute kidney failure, unspecified; I10 Essential (primary) hypertension; I48.91 Unspecified atrial fibrillation; G47.30 Sleep apnea, unspecified; Z87.442 Personal history of urinary calculi; Z90.49 Acquired absence of other specified parts of digestive tract
CPT/HCPCS: 99285; Z7506; 36415; 74176; 76000; 80048; 81001; 83605; 83690; 83735; 84145; 85025; 87040; 87081; 93005; A4618; C2617; G0378; J0690; J0696; J1100; J1644; J1885; J2250; J2270; J2405; J2704; J3010; J3490; J7030; J7120; Q9967